=== PATIENT | male | born 1935 | race Caucasian/White ===

== ENCOUNTER 2019-07-01 11:31 | Emergency (ER) | payer OTHER ==
[2019-07-01 12:20] LABS: Protime INR 1.15
[2019-07-01 12:21] LABS: Absolute Lymphocytes (CBC) 1.9 K/uL (0.7-4.9); Basophils % 0.4 % (0-1.3); Hematocrit 36.1 % (39.6-49.0); Lymphocytes % 25.2 % (15.3-44.8); MPV 12.7 fL (7.6-11.3); RBC Red Blood Cell Count 3.68 M/uL (4.33-5.43)
--- NOTE | 2019-07-01 12:34 | RAD REPORT ---
EXAM DESCRIPTION: RAD - Chest Single View - 07/01/2019 12:15 pm CLINICAL HISTORY: Dizziness, weakness, shortness of breath COMPARISON: March 2017 TECHNIQUE: AP portable chest image was obtained 1213 hours . FINDINGS: Lung volumes are low compared to prior study. No peripheral mass consolidation. No signifi cant failure or volume overload. Heart and vasculature are normal. No measurable pleural effusion and no pneumothorax. No acute bony abnormality seen. No acute aortic findings suspected. IMPRESSION: No acute cardiopulmonary process. No suspicious change from comparison.
--- NOTE | 2019-07-01 12:35 | RAD REPORT ---
EXAM DESCRIPTION: CT - Head Brain Wo Cont - 07/01/2019 12:18 pm CLINICAL HISTORY: Weakness, dizziness, TIA symptoms COMPARISON: March 2017 TECHNIQUE: Axial 5 mm thick images of the head were obtained without IV contrast. All CT scans are performed using dose optimization technique as appropriate and may include automated exposure control or mA/KV adjustment according to patient size. FINDINGS: No intracranial hemorrhage, mass, edema or shift of mid-line structures. No acute infarcti on changes seen. No abnormal extra-axial fluid collections. Atrophy and mild chronic ischemic changes are present not substantially different from 2017. Ventricles are in proportion to the amount of vol ume loss. Arterial tree calcifications are present. Mastoid air cells and visualized portions of the paranasal sinuses are clear. No acute bony findings. IMPRESSION: No acute intracranial finding identifiable. Atrophy and chronic ischemic changes are similar to March 2017.
[2019-07-01 12:36] LABS: ALT/SGPT 15 U/L (12-78); AST/SGOT 12 U/L (15-37); Albumin 3.9 g/dL (3.4-5.0); Alkaline Phosphatase 54 U/L (45-117); BUN Blood Urea Nitrogen 16 mg/dL (7-18); Bicarbonate 25 mmol/L (21-32); Bilirubin Direct 0.2 mg/dL (0-0.2); Bilirubin Total 0.6 mg/dL (0.2-1.0); Glucose Level 247 mg/dL (74-106); Magnesium 1.5 mg/dL (1.8-2.4); NT PRO-BNP 810 pg/mL (<450); Potassium 4.3 mmol/L (3.5-5.1); Protein, Total 6.5 g/dL (6.4-8.2); Sodium Level 139 mmol/L (136-145); Troponin (Emerg Dept Use Only) < 0.02 ng/mL (0.0-0.045)
[2019-07-01 12:51] LABS: Platelet Estimate DECR; Urine White Blood Cell Casts DIFF
[2019-07-01 12:53] LABS: Blood Morphology Comment NOT SEEN (NOT SEEN)
[2019-07-01] MEDS ORDERED: NA CHLORIDE 0.9% 500 ML ONE (13:39)
[2019-07-01] MEDS ORDERED: MAGNESIUM SULFATE 1 gm IVPB 1 GM/100 ML BAG IV ONE (13:39)
[2019-07-01 15:07] LABS: Urine Bacteria NONE SEEN /HPF (NONE SEEN); Urine Culture Reflex Order NOT NEEDED; Urine RBC NONE SEEN /HPF (NONE SEEN)
[2019-07-01 15:40] LABS: Urine Blood NEGATIVE (NEG); Urine Glucose 1+ (NEG); Urine Protein NEGATIVE (NEG); Urine Specific Gravity 1.015 (1.005-1.030)
--- NOTE | 2019-07-01 15:42 | ER ---
Nurse's Notes [facility] Name: Gil Thao Age: 83 yrs Sex: Male : 1935 Arrival Date: 07/01/2019 Time: 11:34 Bed 5 Private MD: Diagnosis: Dizziness and giddiness;Weakness-general;Hyperglycemia, unspecified;Hypomagnesemia Presentation: 07/01 11:34 Presenting complaint: EMS states: Pt c/o dizziness and generalized weakness since this ph morning, BGL 186, BP 150/65, hx of HTN. Transition of care: patient was not received from another setting of care. Onset of symptoms was July 01, 2019. Risk Assessment: Do you want to hurt yourself or someone else? Patient reports no desire to harm self or others. Initial Sepsis Screen: Does the patient meet any 2 criteria? No. Patient's initial sepsis screen is negative. Does the patient have a suspected source of infection? No. Patient's initial sepsis screen is negative. Care prior to arrival: None. 11:34 Method Of Arrival: EMS: [facility] 11:34 Acuity: JONY 3 ph Historical: - Allergies: 11:37 No Known Allergies; ph - Home Meds: 11:48 amlodipine 5 mg oral tab 1 tab twice a day [Active]; levemir 50 unit daily [Active]; ph aspirin 325 mg Oral tab 1 tab once daily [Active]; loratadine 10 mg Oral TbDL 1 tab once daily [Active]; glyburide-metformin 5-500 mg oral tab 1 tab four times a day [Active]; Toprol XL 50 mg Oral Tb24 2 tabs once daily [Active]; hydroxyurea 500 mg Oral cap 1 cap Mon, Wed, Fri, Sat [Active]; - PMHx: 11:37 Diabetes - IDDM; Hypertension; Myocardial infarction; seasonal allergies; ph - PSHx: 11:37 Heart stents; Hernia repair; ph - Immunization history:: Adult Immunizations unknown. - Social history:: Smoking status: Patient/guardian denies using tobacco. - Ebola Screening: : No symptoms or risks identified at this time. Screenin:16 Abuse screen: Denies threats or abuse. Denies injuries from another. Nutritional ph screening: No deficits noted. Tuberculosis screening: No symptoms or risk factors identified. Fall Risk None identified. Assessment: 12:16 General: Appears in no apparent distress. comfortable, well groomed, Behavior is calm, ph cooperative, appropriate for age, Denies fever, feeling ill. Pain: Denies pain. Neuro: Level of Consciousness is awake, alert, obeys commands, Oriented to person, place, time, situation, Joint Cutter are equal bilaterally Moves all extremities. Full function Speech is normal, Reports dizziness, since this morning Denies blurred vision paresthesias numbness headache. Cardiovascular: Reports lightheadedness, Denies chest pain, nausea, palpitations, shortness of breath, Capillary refill < 3 seconds in bilateral fingers Patient's skin is warm and dry. Respiratory: Airway is patent Respiratory effort is even, unlabored. GI: Patient currently denies diarrhea, nausea, vomiting. Derm: Skin is intact, Skin is pink, warm \T\ dry. Musculoskeletal: Circulation, motion, and sensation intact. Range of motion: intact in all extremities. 13:30 Reassessment: Patient appears in no apparent distress at this time. Patient and/or ph family updated on plan of care and expected duration. Pain level reassessed. Patient is alert, oriented x 3, equal unlabored respirations, skin warm/dry/pink. 14:30 Reassessment: Patient appears in no apparent distress at this time. Patient and/or ph family updated on plan of care and expected duration. Pain level reassessed. Patient is alert, oriented x 3, equal unlabored respirations, skin warm/dry/pink. 15:30 Reassessment: Patient appears in no apparent distress at this time. Patient and/or ph family updated on plan of care and expected duration. Pain level reassessed. Patient is alert, oriented x 3, equal unlabored respirations, skin warm/dry/pink. Pt given sandwich and chips, tolerating well, denies dizziness or nausea at this time Patient states feeling better. Patient states symptoms have improved. 16:10 Reassessment: Patient appears in no apparent distress at this time. Patient and/or ph family updated on plan of care and expected duration. Pain level reassessed. Patient is alert, oriented x 3, equal unlabored respirations, skin warm/dry/pink. Patient states feeling better. Patient states symptoms have improved. Vital Signs: 11:37 BP 183 / 51; Pulse 54; Resp 18; Pulse Ox 100% on R/A; ph 11:38 Temp 97.3; Weight 73.48 kg; Height 5 ft. 8 in. (172.72 cm); Pain 0/10; ph 12:30 BP 157 / 60; Pulse 52; Resp 16; Pulse Ox 99% on R/A; ph 14:01 BP 146 / 62; Pulse 52; Resp 18; Pulse Ox 100% on R/A; mg2 15:00 BP 127 / 68; Pulse 56; Resp 16; Pulse Ox 97% on R/A; ph 16:13 BP 133 / 79; Pulse 54; Resp 18; Temp 97.8; Pulse Ox 99% on R/A; ph 11:38 Body Mass Index 24.63 (73.48 kg, 172.72 cm) ph ED Course: 11:34 Patient arrived in ED. ph 11:37 Triage completed. ph 11:40 Alcides Joseph PA is PHCP. cp 11:40 Alcides Mims MD is Attending Physician. cp 11:43 Lulu Collado, STEFAN is Primary Nurse. ph 11:48 Arm band placed on Patient placed in an exam room. ph 12:10 Initial lab(s) drawn, by sc, sent to lab. Inserted saline lock: 22 gauge in right ph antecubital area, using aseptic technique. Blood collected. 12:12 XRAY Chest (1 view) In Process Unspecified. EDMS 12:16 Patient has correct armband on for positive identification. Placed in gown. Bed in low ph position. Call light in reach. Side rails up X2. compliance monitor on. Pulse ox on. NIBP on. 12:17 CT completed. Patient tolerated procedure well. Patient moved back from CT. bq 12:19 CT Head Brain wo Cont In Process Unspecified. EDMS 16:09 No provider procedures requiring assistance completed. IV discontinued, intact, ph bleeding controlled, No redness/swelling at site. Pressure dressing applied. Administered Medications: 12:30 Drug: NS 0.9% 250 ml Route: IV; Rate: 250 ml/hr; Site: right antecubital; mg2 13:15 Follow up: Response: No adverse reaction; IV Status: Completed infusion ph 15:00 Follow up: Response: No adverse reaction; IV Status: Completed infusion; IV Intake: ph 250ml 13:00 Drug: Magnesium Sulfate 2 grams Route: IVPB; Infused Over: 2 hrs; Site: right mg2 antecubital; 16:12 Follow up: Response: No adverse reaction; IV Status: Completed infusion ph 13:59 Drug: NS 0.9% 250 ml Route: IV; Rate: bolus; Site: right antecubital; mg2 15:00 Follow up: Response: No adverse reaction; IV Status: Completed infusion ph Intake: 15:00 IV: 250ml; Total: 250ml. ph Outcome: 15:42 Discharge ordered by MD. cp 16:09 Discharged to home ambulatory, with family. ph 16:09 Condition: improved 16:09 Discharge instructions given to patient, family, Instructed on discharge instructions, follow up and referral plans. Demonstrated understanding of instructions, follow-up care. 16:14 Patient left the ED. ph Signatures: Dispatcher [employer] EDMS Pita Johnson Patricia, RN RN ph Alcides Joseph PA PA cp Gardose, Michele, RN RN mg2
--- NOTE | 2019-07-01 15:42 | EDPHYS ---
Physician Documentation [facility] Name: Gil Thao Age: 83 yrs Sex: Male : 1935 Arrival Date: 07/01/2019 Time: 11:34 Bed 5 Private MD: ED Physician Alcides Mims HPI: 07/01 11:55 This 83 yrs old Male presents to ER via EMS with complaints of dizziness, cp general weakness. 11:55 The patient presents with dizziness, generalized weakness, lightheadedness. cp 11:55 Onset: The symptoms/episode began/occurred this morning. cp 11:55 Context: occurred at home, occurred while the patient was getting up from bed, cp standing, walking, just prior to the episode the patient experienced no apparent symptoms. 11:55 Associated signs and symptoms: Pertinent negatives: abdominal pain, chest pain, cp confusion, focal weakness, headache, shortness of breath, syncope. Severity of symptoms: in the emergency department the symptoms have improved mildly. Patient's baseline: Neuro: alert and fully oriented, Motor: no deficits, Ambulation: walks without assistance, Speech: normal. Historical: - Allergies: 11:37 No Known Allergies; ph - Home Meds: 11:48 amlodipine 5 mg oral tab 1 tab twice a day [Active]; levemir 50 unit daily [Active]; ph aspirin 325 mg Oral tab 1 tab once daily [Active]; loratadine 10 mg Oral TbDL 1 tab once daily [Active]; glyburide-metformin 5-500 mg oral tab 1 tab four times a day [Active]; Toprol XL 50 mg Oral Tb24 2 tabs once daily [Active]; hydroxyurea 500 mg Oral cap 1 cap Mon, Wed, Fri, Sat [Active]; - PMHx: 11:37 Diabetes - IDDM; Hypertension; Myocardial infarction; seasonal allergies; ph - PSHx: 11:37 Heart stents; Hernia repair; ph - Immunization history:: Adult Immunizations unknown. - Social history:: Smoking status: Patient/guardian denies using tobacco. - Ebola Screening: : No symptoms or risks identified at this time. ROS: 12:05 Constitutional: Negative for body aches, chills, fever, poor PO intake. cp 12:05 Eyes: Negative for injury, pain, redness, and discharge. cp 12:05 Cardiovascular: Negative for chest pain, edema, palpitations. cp 12:05 ENT: Negative for drainage from ear(s), ear pain, sore throat, difficulty swallowing, cp difficulty handling secretions. 12:05 Respiratory: Negative for cough, shortness of breath, wheezing. 12:05 Abdomen/GI: Negative for abdominal pain, nausea, vomiting, and diarrhea, constipation, black/tarry stool, rectal bleeding. 12:05 : Negative for urinary symptoms. 12:05 Skin: Negative for rash. 12:05 Neuro: Positive for dizziness, weakness, Negative for altered mental status, gait disturbance, headache, syncope. 12:05 All other systems are negative. Exam: 12:10 Constitutional: The patient appears in no acute distress, alert, awake, cp non-diaphoretic, non-toxic, well developed, well nourished. 12:10 Head/Face: Normocephalic, atraumatic. cp 12:10 Eyes: Periorbital structures: appear normal, Pupils: equal, round, and reactive to light and accomodation, Extraocular movements: intact throughout, Conjunctiva: normal, no exudate, no injection, Sclera: no appreciated abnormality, Lids and lashes: appear normal, bilaterally. 12:10 ENT: External ear(s): are unremarkable, Ear canal(s): are normal, clear, TM's: are normal, no evidence of bulging, no erythema, Nose: is normal, Mouth: Lips: dry, Oral mucosa: pink and intact, moist, Posterior pharynx: is normal, airway is patent, no erythema, no exudate. 12:10 Neck: ROM/movement: is normal, is supple, without pain, no range of motions limitations, no meningismus, no nuchal rigidity. 12:10 Chest/axilla: Inspection: normal, Palpation: is normal, no crepitus, no tenderness. 12:10 Cardiovascular: Rate: bradycardic, Rhythm: regular, Edema: is not appreciated, JVD: is not appreciated. 12:10 Respiratory: the patient does not display signs of respiratory distress, Respirations: normal, no use of accessory muscles, no retractions, no splinting, no tachypnea, labored breathing, is not present, Breath sounds: are clear throughout, no decreased breath sounds, no stridor, no wheezing. 12:10 Abdomen/GI: Inspection: abdomen appears normal, Bowel sounds: active, all quadrants, Palpation: abdomen is soft and non-tender, in all quadrants, rebound tenderness, is not appreciated, involuntary guarding, is not appreciated. 12:10 Back: pain, is absent, ROM is normal. 12:10 Skin: cellulitis, is not appreciated, no rash present. 12:10 Neuro: Orientation: to person, place \T\ time. Mentation: is normal, Cerebellar function: Romberg testing is negative, normal finger to nose testing, heel to brown testing is normal, Motor: moves all fours, strength is normal, Sensation: no obvious gross deficits. Vital Signs: 11:37 BP 183 / 51; Pulse 54; Resp 18; Pulse Ox 100% on R/A; ph 11:38 Temp 97.3; Weight 73.48 kg; Height 5 ft. 8 in. (172.72 cm); Pain 0/10; ph 12:30 BP 157 / 60; Pulse 52; Resp 16; Pulse Ox 99% on R/A; ph 14:01 BP 146 / 62; Pulse 52; Resp 18; Pulse Ox 100% on R/A; mg2 15:00 BP 127 / 68; Pulse 56; Resp 16; Pulse Ox 97% on R/A; ph 16:13 BP 133 / 79; Pulse 54; Resp 18; Temp 97.8; Pulse Ox 99% on R/A; ph 11:38 Body Mass Index 24.63 (73.48 kg, 172.72 cm) ph MDM: 11:40 Patient medically screened. ofelia 12:00 Differential diagnosis: cardiac arrhythmia, generalized weakness, GI bleed, cp hypovolemia, idiopathic dizziness, sepsis, TIA, vertigo. 15:42 Data reviewed: vital signs, nurses notes, lab test result(s), EKG, radiologic studies, cp CT scan, plain films, and as a result, I will discharge patient. 15:42 Response to treatment: the patient's symptoms have markedly improved after treatment. 15:42 Counseling: I had a detailed discussion with the patient and/or guardian regarding: the cp historical points, exam findings, and any diagnostic results supporting the discharge/admit diagnosis, lab results, radiology results, to return to the emergency department if symptoms worsen or persist or if there are any questions or concerns that arise at home. 07/01 11:49 Order name: Basic Metabolic Panel; Complete Time: 12:45 cp 07/01 12:45 Interpretation: Normal except: GLUC 247; GFR 77. cp 07/01 11:49 Order name: CBC with Diff; Complete Time: 13:17 cp 07/01 13:18 Interpretation: Normal except: RBC 3.68; HGB 12.4; HCT 36.1; MCV 98.2; MCH 33.7; PLT cp 74; MPV 12.7; MN% 16.6. 07/01 11:49 Order name: LFT's; Complete Time: 12:45 cp 07/01 11:49 Order name: Magnesium; Complete Time: 12:45 cp 07/01 11:49 Order name: NT PRO-BNP; Complete Time: 12:45 cp 07/01 11:49 Order name: PT-INR; Complete Time: 12:45 cp 07/01 11:49 Order name: Troponin (emerg Dept Use Only); Complete Time: 12:45 cp 07/01 11:49 Order name: XRAY Chest (1 view); Complete Time: 12:45 cp 07/01 11:49 Order name: CT Head Brain wo Cont; Complete Time: 12:45 cp 07/01 11:49 Order name: Urine Microscopic Only; Complete Time: 15:26 cp 07/01 12:28 Order name: CBC Smear Scan EDDE 07/01 12:53 Order name: Manual Differential; Complete Time: 13:17 EDDE 07/01 13:18 Interpretation: Normal except: BANDS [F] 5; MONO 14. cp 07/01 15:33 Order name: Urine Dipstick--Ancillary (enter results); Complete Time: 15:42 eb 07/01 11:49 Order name: EKG; Complete Time: 11:50 cp 07/01 11:49 Order name: Cardiac monitoring; Complete Time: 12:12 cp 07/01 11:49 Order name: EKG - Nurse/Tech; Complete Time: 12:13 cp 07/01 11:49 Order name: IV Saline Lock; Complete Time: 12:12 cp 07/01 11:49 Order name: Labs collected and sent; Complete Time: 12:12 cp 07/01 11:49 Order name: O2 Per Protocol; Complete Time: 12:12 cp 07/01 11:49 Order name: O2 Sat Monitoring; Complete Time: 12:12 cp Administered Medications: 12:30 Drug: NS 0.9% 250 ml Route: IV; Rate: 250 ml/hr; Site: right antecubital; mg2 13:15 Follow up: Response: No adverse reaction; IV Status: Completed infusion ph 15:00 Follow up: Response: No adverse reaction; IV Status: Completed infusion; IV Intake: ph 250ml 13:00 Drug: Magnesium Sulfate 2 grams Route: IVPB; Infused Over: 2 hrs; Site: right mg2 antecubital; 16:12 Follow up: Response: No adverse reaction; IV Status: Completed infusion ph 13:59 Drug: NS 0.9% 250 ml Route: IV; Rate: bolus; Site: right antecubital; mg2 15:00 Follow up: Response: No adverse reaction; IV Status: Completed infusion ph Disposition: 07/02 09:15 Co-signature as Attending Physician, Alcides Mims MD I agree with the assessment and ofelia plan of care. Disposition: 07/01/19 15:42 Discharged to Home. Impression: Dizziness and giddiness, Weakness - general, Hyperglycemia, unspecified, Hypomagnesemia. - Condition is Stable. - Discharge Instructions: Dizziness, Hyperglycemia, Hypomagnesemia, Weakness, Blood Glucose Monitoring, Adult. - Medication Reconciliation Form, Thank You Letter, Antibiotic Education, Prescription Opioid Use form. - Follow up: Private Physician; When: 2 - 3 days; Reason: Recheck today's complaints. - Problem is new. - Symptoms have improved. Signatures: Dispatcher [employer] Alcides Teague MD MD cha Hall, Patricia RN RN ph Alcides Joseph PA PA cp Gardose, Michele RN RN mg2 Corrections: (The following items were deleted from the chart) 07/01 13:20 11:25 This 83 yrs old Male presents to ER via EMS with complaints of cp dizziness, general weakness. cp 15:42 15:42 07/01/2019 15:42 Discharged to Home. Impression: Dizziness and giddiness; cp Weakness - general. Condition is Stable. Forms are Medication Reconciliation Form, Thank You Letter, Antibiotic Education, Prescription Opioid Use. Follow up: Private Physician; When: 2 - 3 days; Reason: Recheck today's complaints. Problem is new. Symptoms have improved. cp 16:14 15:42 07/01/2019 15:42 Discharged to Home. Impression: Dizziness and giddiness; ph Weakness - general; Hyperglycemia, unspecified; Hypomagnesemia. Condition is Stable. Forms are Medication Reconciliation Form, Thank You Letter, Antibiotic Education, Prescription Opioid Use. Follow up: Private Physician; When: 2 - 3 days; Reason: Recheck today's complaints. Problem is new. Symptoms have improved. cp
[2019-07-01 16:27] VITALS: BP 133/79; TEMP 97.8; O2SAT 99
--- NOTE | 2019-07-02 06:14 | EKG ---
Test Date: 2019-07-01 Test Time: 11:54:03 [employer] Director: MEASUREMENT RESULTS: Intervals: Rate: 52 KS: 156 QRSD: 104 QT: 460 QTc: 427 [place]: P: 65 KS: 156 QRS: 69 T: 32 INTERPRETIVE STATEMENTS: Sinus bradycardia Cannot rule out Inferior infarct, age undetermined Abnormal ECG Compared to ECG 03/29/2017 07:26:21 Sinus rhythm no longer present Myocardial infarct finding still present Electronically Signed On 07-02-19 06:13:31 CDT by Poli Cruz
== END 2019-07-01 16:14 | disposition home or self-care (01) ==
LOC: ER 11:31
DX: E11.65 Type 2 diabetes mellitus with hyperglycemia (principal); E83.42 Hypomagnesemia; R53.1 Weakness; I10 Essential (primary) hypertension; I25.2 Old myocardial infarction; Z79.4 Long term (current) use of insulin; Z79.82 Long term (current) use of aspirin
CPT/HCPCS: 96365; 93005; 85025; 80048; 36415; 83735; 85610; 80076; 84484; 83880; 70450; 71045; 99285; 96366; J3475; 81003; 81015

== ENCOUNTER 2019-11-11 09:52 | Observation (INO) | payer OTHER ==
[2019-11-11] MEDS ORDERED: NA CHLORIDE 0.9% 500 ML ONE (10:21)
--- NOTE | 2019-11-11 10:36 | RAD REPORT ---
EXAM DESCRIPTION: CT - Ct Stroke Brain Wo Cont - 11/11/2019 10:23 am CLINICAL HISTORY: DIZZINESS Headache, drowsiness, CVA symptomology COMPARISON: Head Brain Wo Cont dated 07/01/2019; Head Brain Wo Cont dated 03/29/2017 TECHNIQUE: All CT scans are performed using dose optimization technique as appropriate and may inclu de automated exposure control or mA/KV adjustment according to patient size. FINDINGS: No intracranial hemorrhage, hydrocephalus or extra-axial fluid collection.Mild generalized brain atrophy.No areas of brain edema or evidence of midline shift. The paranasal sinuses and mastoids are clear. The calvarium is intact. IMPRESSION: No acute intracranial abnormality. The findings were discussed with Melinda in the ER on 11/11/2019 at 10:30 a.m. by telephone.
[2019-11-11 11:00] LABS: Absolute Lymphocytes (CBC) 2.2 K/uL (0.7-4.9); Basophils % 0.6 % (0-1.3); Hematocrit 39.3 % (39.6-49.0); Lymphocytes % 25.3 % (15.3-44.8); MPV 12.8 fL (7.6-11.3); RBC Red Blood Cell Count 3.99 M/uL (4.33-5.43)
[2019-11-11 11:02] LABS: Protime INR 1.09
[2019-11-11 11:13] LABS: BUN Blood Urea Nitrogen 17 mg/dL (7-18); Bicarbonate 27 mmol/L (21-32); Glucose Level 245 mg/dL (74-106); Potassium 4.6 mmol/L (3.5-5.1); Sodium Level 140 mmol/L (136-145); Troponin (Emerg Dept Use Only) < 0.02 ng/mL (0.0-0.045)
--- NOTE | 2019-11-11 11:13 | RAD REPORT ---
EXAM DESCRIPTION: RAD - Chest Single View - 11/11/2019 10:24 am CLINICAL HISTORY: dizziness Chest pain. COMPARISON: Chest Single View dated 07/01/2019; Chest Single View dated 03/29/2017; CHEST SINGLE VIEW dated 09/18/2008; CHEST PA AND LAT 2 VIEW dated 08/31/2006 FINDINGS: Portable technique limits examination quality. The lungs are grossly clear. The heart is normal in size. No displaced fractures. IMPRESSION: No acute intrathoracic process suspected.
[2019-11-11] MEDS ORDERED: MECLIZINE HCL 12.5 MG TAB ONE (11:43)
[2019-11-11 12:03] LABS: Blood Morphology Comment NOT SEEN (NOT SEEN); Platelet Estimate DECR; Urine White Blood Cell Casts OK
--- NOTE | 2019-11-11 12:11 | RAD REPORT ---
EXAM DESCRIPTION: CT - Head angio - 11/11/2019 12:04 pm CLINICAL HISTORY: DIZZINESS Headache, drowsiness, CVA symptomology COMPARISON: Ct Stroke Brain Wo Cont dated 11/11/2019; Head Brain Wo Cont dated 07/01/2019 TECHNIQUE: CT angiography of the head was performed with MIPs. All CT scans are performed using dose optimization technique as appropriate and may include automated exposure control or mA/KV adjustment according to patient size. FINDINGS: No evidence of aneurysm is detected. No flow-limiting stenosis or vascular malformation id entified. Antegrade flow is seen in the vertebral arteries. The left vertebral artery is dominant. The visualized dural venous sinuses are patent. IMPRESSION: No significant flow abnormality is detected.
--- NOTE | 2019-11-11 12:13 | RAD REPORT ---
EXAM DESCRIPTION: CT - Neck Angio - 11/11/2019 12:05 pm CLINICAL HISTORY: dizziness Headache, drowsiness, CVA symptomology COMPARISON: No comparisons TECHNIQUE: CT angiography of the neck vessels was performed with MIPs. All CT scans are performed using dose optimization technique as appropriate and may include automated exposure control or mA/KV adjustment according to patient size. FINDINGS: A left aortic arch is identified with normal configuration of the great vessels. Moderate atheromatous plaque is seen at the origin left subclavian artery with mild luminal narrowing. No significant flow abnormality is seen of the common carotid bilaterally. Mild atherosclerotic plaque is seen in both carotid bulbs without significant carotid stenosis presen t. Normal flow is seen within both vertebral arteries. The left vertebral artery is mildly dominant. Upper lung amezcua are emphysematous. IMPRESSION: No significant flow abnormality of the neck vessels is identified.
--- NOTE | 2019-11-11 12:49 | ER ---
Nurse's Notes [facility] Name: Gil Thao Age: 83 yrs Sex: Male : 1935 Arrival Date: 11/11/2019 Time: 10:00 Bed 7 Private MD: Diagnosis: Dizziness and giddiness;Ataxia, unspecified;Weakness Presentation: 11/11 10:02 Presenting complaint: EMS states: Pt reports dizziness, L sided weakness, and trouble ph ambulating that began last night before 9 pm, also reports "pressure" in L side of head behind eye, denies visual disturbance or recent illness. Transition of care: patient was not received from another setting of care. Onset of symptoms was November 11, 2019. Risk Assessment: Do you want to hurt yourself or someone else? Patient reports no desire to harm self or others. Initial Sepsis Screen: Does the patient meet any 2 criteria? No. Patient's initial sepsis screen is negative. Does the patient have a suspected source of infection? No. Patient's initial sepsis screen is negative. Care prior to arrival: None. 10:02 Method Of Arrival: EMS: [facility] 10:02 Acuity: JONY 3 ph Historical: - Allergies: 10:06 No Known Allergies; ph - Home Meds: 10:06 amlodipine 5 mg tab 1 tab twice a day [Active]; aspirin 325 mg Oral tab 1 tab once ph daily [Active]; glyburide-metformin 5-500 mg Oral tab 1 tab four times a day [Active]; hydroxyurea 500 mg Oral cap 1 cap Mon, Wed, Fri, Sat [Active]; levemir 50 unit daily [Active]; loratadine 10 mg Oral TbDL 1 tab once daily [Active]; Toprol XL 50 mg Oral Tb24 2 tabs once daily [Active]; - PMHx: 10:06 Diabetes - IDDM; Hypertension; Myocardial infarction; seasonal allergies; ph - PSHx: 10:06 Heart stents; Hernia repair; ph - Immunization history:: Adult Immunizations unknown. - Coronavirus screen:: The patient has NOT traveled to [place], [place], or [place] in the past 14 days. The patient has NOT had contact with known/suspected case of Coronavirus?. - Social history:: Smoking status: Patient denies any tobacco usage or history of. - Family history:: not pertinent. - Ebola Screening: : No symptoms or risks identified at this time. - Hospitalizations: : No recent hospitalization is reported. Screenin:07 Abuse screen: Denies threats or abuse. Denies injuries from another. Nutritional ph screening: No deficits noted. Tuberculosis screening: No symptoms or risk factors identified. Fall Risk None identified. 11:45 Patient has been NPO before screening. The patient is alert, able to follow commands. ph The patient does not exhibit slurred or garbled speech The patient is not exhibiting difficulty speaking. The patient does not exhibit difficulty understanding words. The patient is able to swallow own secretions with no drooling or need for suction. Patient tolerated one teaspoon of water. No drooling, immediate coughing, gurgling, or clearing of the throat was noted. The patient tolerated 90mL of water. No drooling, immediate coughing, gurgling, or clearing of the throat was noted. The patient passed the bedside swallow screening. Oral medications may be given as ordered. Contact Physician for further diet orders. Provider notified of bedside swallow screening results: Leno Pace MD. Assessment: 10:19 General: Appears in no apparent distress. comfortable, well groomed, Behavior is calm, ph cooperative, appropriate for age, Denies fever, feeling ill. Pain: Complains of pain in left side of forehead, left temporal area, left eye and left latter-day Quality of pain is described as pressure. Neuro: Level of Consciousness is awake, alert, obeys commands, Oriented to person, place, time, situation, Director Database are equal bilaterally Moves all extremities. Gait is unsteady, Speech is normal, Facial symmetry appears normal, Facial symmetry: tongue is midline, Intact Reports dizziness, headache in left frontal area, weakness in left leg Denies blurred vision difficulty swallowing, numbness diplopia. Cardiovascular: Reports lightheadedness, Denies chest pain, nausea, palpitations, shortness of breath. Respiratory: Airway is patent Respiratory effort is even, unlabored. GI: No signs and/or symptoms were reported involving the gastrointestinal system. Patient currently denies abdominal pain, diarrhea, nausea, vomiting. : Denies burning with urination, urinary frequency. EENT:. Derm: Skin is fragile, is thin, Skin is pink, warm \\T\\ dry. Bruising that is multiple bruises noted to bilateral arms, pt denies falling, states, " I bruise easily". Musculoskeletal: Circulation, motion, and sensation intact. Range of motion: intact in all extremities. 10:22 Reassessment: Pt taken to CT via stretcher. ph 11:07 Reassessment: Patient appears in no apparent distress at this time. Patient and/or ph family updated on plan of care and expected duration. Pain level reassessed. Patient is alert, oriented x 3, equal unlabored respirations, skin warm/dry/pink. 11:51 Reassessment: Patient appears in no apparent distress at this time. Patient and/or ph family updated on plan of care and expected duration. Pain level reassessed. Patient is alert, oriented x 3, equal unlabored respirations, skin warm/dry/pink. Pt taken to CT via stretcher for head and neck angio, family remains at bedside. 13:37 Reassessment: Patient appears in no apparent distress at this time. Patient and/or ph family updated on plan of care and expected duration. Pain level reassessed. Patient is alert, oriented x 3, equal unlabored respirations, skin warm/dry/pink. Report called to second floor. Vital Signs: 10:04 BP 171 / 59; Pulse 54; Resp 18; Temp 97.4; Pulse Ox 100% on R/A; Weight 73.48 kg; ph Height 5 ft. 8 in. (172.72 cm); 11:08 BP 147 / 56; Pulse 63; Resp 18; Pulse Ox 100% on R/A; ph 11:53 BP 145 / 60; Pulse 56; Resp 18; Pulse Ox 99% on R/A; ph 13:15 BP 162 / 56; Pulse 55; Resp 18; Temp 97.5; Pulse Ox 99% on R/A; ph 10:04 Body Mass Index 24.63 (73.48 kg, 172.72 cm) ph ED Course: 10:00 Patient arrived in ED. rn 10:00 Leno Pace MD is Attending Physician. rn 10:02 Lulu Collado, STEFAN is Primary Nurse. ph 10:04 Triage completed. ph 10:07 Patient has correct armband on for positive identification. Placed in gown. Bed in low ph position. Call light in reach. Side rails up X2. ekg monitor tech on. Pulse ox on. NIBP on. Door closed. Warm blanket given. Pillow given. 10:09 Arm band placed on Patient placed in an exam room, on a stretcher, on ekg monitor tech, ph on pulse oximetry. 10:23 CT completed. Patient tolerated procedure well. Patient moved back from CT. mw3 10:24 CT Stroke Brain w/o Contrast In Process Unspecified. EDMS 10:25 Stroke CXR 1 View In Process Unspecified. EDMS 10:40 Initial lab(s) drawn, by me, sent to lab. Inserted saline lock: 22 gauge in right ph antecubital area, using aseptic technique. Blood collected. 12:04 CT Head Angio In Process Unspecified. EDMS 12:04 CT Neck Angio In Process Unspecified. EDMS 12:48 Cecilio Langston MD is Hospitalizing Provider. rn 13:39 No provider procedures requiring assistance completed. Patient admitted, IV remains in ph place. Administered Medications: 10:45 Drug: NS 0.9% 500 ml Route: IV; Rate: bolus; Site: right antecubital; ph 11:51 Follow up: Response: No adverse reaction; IV Status: Completed infusion; IV Intake: ph 500ml 11:51 Drug: Meclizine 50 mg Route: PO; ph 13:39 Follow up: Response: No adverse reaction ph 13:06 Drug: Aspirin Chewable Tablet 324 mg Route: PO; hb 13:40 Follow up: Response: No adverse reaction ph Intake: 11:51 IV: 500ml; Total: 500ml. ph Outcome: 12:48 Decision to Hospitalize by Provider. rn 13:39 Admitted to Tele accompanied by tech, family with patient, via wheelchair, room 232. ph 13:39 Condition: stable 13:39 Instructed on the need for admit. 14:14 Patient left the ED. ph Signatures: Dispatcher [employer] EDLeno Garber MD MD rn Hall, Patricia, RN RN ph Baxter, Heather, RN RN hb Willis, Michelle mw3
--- NOTE | 2019-11-11 12:50 | EDPHYS ---
Physician Documentation [facility] Name: Gil Thao Age: 83 yrs Sex: Male : 1935 Arrival Date: 11/11/2019 Time: 10:00 Bed 7 Private MD: ED Physician Leno Pace HPI: 11/11 10:23 This 83 yrs old Male presents to ER via EMS with complaints of dizziness. rn 10:23 The patient presents with feeling off balance. Onset: The symptoms/episode rn began/occurred yesterday. Context: occurred at home, occurred while the patient was. Modifying factors: The symptoms are alleviated by lying down, the symptoms are aggravated by movement of head, standing up, changing position. Severity of symptoms: At their worst the symptoms were moderate in the emergency department the symptoms are unchanged. The patient has not experienced similar symptoms in the past. Reports dizziness, began yesterday, constant, feels like falling to left side when walking, assoc with left sided head pain that is minor, no recent trauma, no hx of cva. Not better today and felt like was going to pass out so called 911. No fever/vomiting/diarrhea/chest pain/sob. . Historical: - Allergies: 10:06 No Known Allergies; ph - Home Meds: 10:06 amlodipine 5 mg tab 1 tab twice a day [Active]; aspirin 325 mg Oral tab 1 tab once ph daily [Active]; glyburide-metformin 5-500 mg Oral tab 1 tab four times a day [Active]; hydroxyurea 500 mg Oral cap 1 cap Mon, Wed, Fri, Sat [Active]; levemir 50 unit daily [Active]; loratadine 10 mg Oral TbDL 1 tab once daily [Active]; Toprol XL 50 mg Oral Tb24 2 tabs once daily [Active]; - PMHx: 10:06 Diabetes - IDDM; Hypertension; Myocardial infarction; seasonal allergies; ph - PSHx: 10:06 Heart stents; Hernia repair; ph - Immunization history:: Adult Immunizations unknown. - Coronavirus screen:: The patient has NOT traveled to [place], [place], or [place] in the past 14 days. The patient has NOT had contact with known/suspected case of Coronavirus?. - Social history:: Smoking status: Patient denies any tobacco usage or history of. - Family history:: not pertinent. - Ebola Screening: : No symptoms or risks identified at this time. - Hospitalizations: : No recent hospitalization is reported. ROS: 10:23 Constitutional: Negative for fever, chills, and weight loss, Eyes: Negative for injury, rn pain, redness, and discharge, Neck: Negative for injury, pain, and swelling, Cardiovascular: Negative for chest pain, palpitations, and edema, Respiratory: Negative for shortness of breath, cough, wheezing, and pleuritic chest pain, Abdomen/GI: Negative for abdominal pain, nausea, vomiting, diarrhea, and constipation, Back: Negative for injury and pain, MS/Extremity: Negative for injury and deformity, Skin: Negative for injury, rash, and discoloration, Neuro: Negative for numbness, tingling, and seizure, + subjective left arm and leg weakness. Exam: 10:23 Constitutional: This is a well developed, well nourished patient who is awake, alert, rn and in no acute distress. Head/Face: Normocephalic, atraumatic. Eyes: Pupils equal round and reactive to light, extra-ocular motions intact. Lids and lashes normal. Conjunctiva and sclera are non-icteric and not injected. Cornea within normal limits. Periorbital areas with no swelling, redness, or edema. ENT: dry MM Cardiovascular: Bradycardic, regular Respiratory: No increased work of breathing, no retractions or nasal flaring. Abdomen/GI: soft, non-tender MS/ Extremity: Pulses equal, no cyanosis. Neurovascular intact. Full, normal range of motion. Equal circumference. Neuro: Awake and alert, GCS 15, oriented to person, place, time, and situation. Cranial nerves II-XII grossly intact. Motor strength 4/5 in all extremities. Sensory grossly intact. Vital Signs: 10:04 BP 171 / 59; Pulse 54; Resp 18; Temp 97.4; Pulse Ox 100% on R/A; Weight 73.48 kg; ph Height 5 ft. 8 in. (172.72 cm); 11:08 BP 147 / 56; Pulse 63; Resp 18; Pulse Ox 100% on R/A; ph 11:53 BP 145 / 60; Pulse 56; Resp 18; Pulse Ox 99% on R/A; ph 13:15 BP 162 / 56; Pulse 55; Resp 18; Temp 97.5; Pulse Ox 99% on R/A; ph 10:04 Body Mass Index 24.63 (73.48 kg, 172.72 cm) ph MDM: 10:00 Patient medically screened. rn 12:40 Differential diagnosis: cardiac arrhythmia, CVA, generalized weakness, hypovolemia, rn idiopathic dizziness, near-syncope, TIA, vertigo. Data reviewed: vital signs, nurses notes, lab test result(s), EKG, radiologic studies, CT scan, and as a result, I will admit patient. Counseling: I had a detailed discussion with the patient and/or guardian regarding: the historical points, exam findings, and any diagnostic results supporting the discharge/admit diagnosis, lab results, radiology results, the need for further work-up and treatment in the hospital. Response to treatment: There is no appreciated change of the patient's symptoms at this time. Admission orders: after a detailed discussion of the patient's condition and case, the admit orders are written by me. ED course: Neg CT head/angio/neck angio. Pt still complains of left sided subjective weakness, and trouble balancing. Admitted to Dr. Langston for further w/u. . 11/11 10:02 Order name: Troponin (emerg Dept Use Only); Complete Time: 11:30 rn 11/11 10:02 Order name: Basic Metabolic Panel; Complete Time: : rn 11/11 10:02 Order name: CBC with Diff; Complete Time: 12: rn 11/11 10:02 Order name: Protime (+inr); Complete Time: 11:30 rn 11/11 10:02 Order name: Ptt, Activated; Complete Time: 11: rn 11/11 10:02 Order name: Urine Microscopic Only rn 11/11 10:02 Order name: CT Stroke Brain w/o Contrast; Complete Time: 11: rn 11/11 10:02 Order name: Stroke CXR 1 View; Complete Time: 11: rn 11/11 10:59 Order name: Glucose, Ancillary Testing; Complete Time: 11:05 EDMS 11/11 11:31 Order name: CT Head Angio; Complete Time: 12:21 rn 11/11 11:31 Order name: CT Neck Angio; Complete Time: 12: rn 11/11 12:03 Order name: CBC Smear Scan; Complete Time: 12: EDMS 11/11 10:02 Order name: EKG; Complete Time: 10: rn 11/11 10:02 Order name: Accucheck; Complete Time: 11: rn 11/11 10:02 Order name: Cardiac monitoring; Complete Time: 10: rn 11/11 10:02 Order name: EKG - Nurse/Tech; Complete Time: 10: rn 11/11 10:02 Order name: IV Saline Lock; Complete Time: 11: rn 11/11 10:02 Order name: Labs collected and sent; Complete Time: 11: rn 11/11 10:02 Order name: NPO; Complete Time: : rn 11/11 10:02 Order name: O2 Per Protocol; Complete Time: : rn 11/11 10:02 Order name: O2 Sat Monitoring; Complete Time: 10:15 rn Administered Medications: 10:45 Drug: NS 0.9% 500 ml Route: IV; Rate: bolus; Site: right antecubital; ph 11:51 Follow up: Response: No adverse reaction; IV Status: Completed infusion; IV Intake: ph 500ml 11:51 Drug: Meclizine 50 mg Route: PO; ph 13:39 Follow up: Response: No adverse reaction ph 13:06 Drug: Aspirin Chewable Tablet 324 mg Route: PO; hb 13:40 Follow up: Response: No adverse reaction ph Disposition: 11/11/19 12:48 Hospitalization ordered by Cecilio Langston for Inpatient Admission. Preliminary diagnosis are Dizziness and giddiness, Ataxia, unspecified, Weakness. - Bed requested for Telemetry/MedSurg (Inpatient). - Status is Inpatient Admission. ph - Condition is Stable. - Problem is new. - Symptoms are unchanged. Signatures: Dispatcher [employer] EDMS Leno Pace MD MD rn Hall, Patricia, RN RN ph Evon Molina RN RN Steven Aceves RN RN ja1 Corrections: (The following items were deleted from the chart) 10:26 10:23 Constitutional: Negative for fever, chills, and weight loss, Eyes: Negative for rn injury, pain, redness, and discharge, Neck: Negative for injury, pain, and swelling, Cardiovascular: Negative for chest pain, palpitations, and edema, Respiratory: Negative for shortness of breath, cough, wheezing, and pleuritic chest pain, Abdomen/GI: Negative for abdominal pain, nausea, vomiting, diarrhea, and constipation, MS/Extremity: Negative for injury and deformity, Skin: Negative for injury, rash, and discoloration, Neuro: Negative for numbness, tingling, and seizure, rn 13:17 12:48 Hospitalization Ordered by Cecilio Langston MD for Inpatient Admission. Preliminary ja1 diagnosis is Dizziness and giddiness; Ataxia, unspecified; Weakness. Bed requested for Telemetry/MedSurg (Inpatient). Status is Inpatient Admission. Condition is Stable. Problem is new. Symptoms are unchanged. rn 14:14 13:17 11/11/2019 12:48 Hospitalization Ordered by Cecilio Langston MD for Inpatient ph Admission. Preliminary diagnosis is Dizziness and giddiness; Ataxia, unspecified; Weakness. Bed requested for Telemetry/MedSurg (Inpatient). Status is Inpatient Admission. Condition is Stable. Problem is new. Symptoms are unchanged. ja1
[2019-11-11] MEDS ORDERED: ASPIRIN 81 MG CHEWABLE TABLET ONE (13:03)
[2019-11-11] MEDS ORDERED: MECLIZINE HCL 12.5 MG TAB PO PRN (14:23)
[2019-11-11] MEDS ORDERED: ONDANSETRON 4 MG/2 ML VIAL IV PRN (14:23)
[2019-11-11] MEDS ORDERED: GLUCAGON 1 MG/VIAL IM PRN (14:23)
[2019-11-11] MEDS ORDERED: ACETAMINOPHEN 500 MG TAB PO PRN (14:23)
[2019-11-11] MEDS ORDERED: D50W 25 GM/50 ML SYRINGE/VIAL IV PRN (14:23)
[2019-11-11 14:25] LABS: Urine Bacteria <20 /HPF (NONE SEEN); Urine Culture Reflex Order NOT NEEDED; Urine RBC NONE SEEN /HPF (NONE SEEN)
[2019-11-11 15:00] VITALS: BMI 24.6
[2019-11-11] MEDS: NA CHLORIDE 0.9% 1,000 ML IV SCH (16:27)
[2019-11-11] MEDS: INSULIN -REGULAR HUMAN 50 UNIT/0.5 ML ML SQ SCH ×2 (16:30→20:54)
[2019-11-11] MEDS ORDERED: ATORVASTATIN 20 MG TAB PO SCH (21:00)
--- NOTE | 2019-11-11 23:56 | HP ---
Date of Admission: 11/11/2019 Primary Care Physician: Dr. Byrne. Hospitalist service covering for Dr. Byrne. Chief Complaint: Weakness, ataxia. Code Status: Full. History Of Present Illness: The patient is an 83-year-old male with past medical history of diabetes insulin-requiring, hypertension, history of WA, status post stent, on aspirin, comes in with sudden onset of dizziness yesterday afternoon. The day prior to admission, patient also reported he had omar e ataxia, was veering off to the left, and had difficulty ambulating. Patient's symptoms are constan t, moderate, progressively worsening. Denies any trauma. No falls. He said he checked his blood castillo gar which was in the 200s. Otherwise, no nausea, vomiting, fever, chills. Patient came into the ER for further evaluation. Upon arrival, his blood pressure was elevated to 180s systolic, heart rate w as in the 50s. Blood sugar level was 245. CT scan of the brain was negative for any acute change. He is then referred for admission. When seen in the ER, he was awake, alert, oriented x3, in some mi ld distress. He was given meclizine and 0.5 L normal saline bolus. Past Medical History: Diabetes mellitus type 2, insulin requiring; hypertension; history of WA, stat us post stent. He also has history of skin cancer. Past Surgical History: Hernia repair and cardiac stents. Allergies: NO KNOWN DRUG ALLERGIES. Medications: List reviewed. Social History: Patient was a long-term smoker for at least 40 years, quit in the early . No a lcohol use. No illicit drug use patient is , independent in his activities of daily living, h as a son. Good social support. Family History: Both of his brothers have diabetes and one of his brothers had bypass surgery. Review of Systems: Ten-point system reviewed, negative except as per HPI. Physical Examination: Vital Signs: Blood pressure 183/51, pulse 54 respirations 18, O2 100% on room air, temperature 97.3. General: Awake, alert, oriented x3. Elderly male, ill appearing, in some mild distress. HEENT: Normocephalic, atraumatic. PERRLA. EOMI. Dry mucous membranes. Oropharynx is clear. Poor dentition. Conjunctivae are anicteric. Patient does have some nystagmus. Neck: Supple. No JVD. Trachea midline. CV: S1, S2. Sinus bradycardia. Peripheral pulses present. Respiratory: Moving air well bilaterally. No wheezing or stridor. No use of accessory muscles. Gastrointestinal: Abdomen is soft, nontender, nondistended. Positive bowel sounds. No guarding or rigidity. Extremities: No clubbing, cyanosis, or edema. No calf tenderness. Neuro: Cranial nerves 2 through 12 intact grossly. No focal neurological deficits. Speech is annette l and does have somewhat word-finding difficulty. No facial droop. Skin: No rashes. Normal skin turgor. Patient does have multiple ecchymoses on his upper extremitie s. Psychiatric: Mood is okay. Affect is full. Insight and judgment are good. Laboratory Data: INR 1.09. Sodium 140, potassium 4.6, chloride 107, CO2 of 27, BUN 17, creatinine 0 .96, glucose 245, calcium 9. Troponin less than 0.02. UA is pending. WBC 8.8, H and H 13.1 and 39. 3, platelets 267, neutrophils 59%. Imaging Studies: CT scan of the brain shows no acute intracranial abnormality. Chest x-ray personal ly reviewed shows no acute intrathoracic process. Head CTA shows no significant flow abnormality. N juanis CTA shows no significant flow abnormality of the neck vessels. Assessment And Plan: An 83-year-old male with: 1.Dizziness, ataxia, possibly cerebrovascular accident versus transient ischemic attack symptoms. S ymptoms started yesterday. Not a candidate for tPA. May also be related to benign positional vertig o. Patient received meclizine. We will continue p.r.n. Consult Neuro in a.m. No Neuro available a t this time. Patient's head CT and neck and head CT angiograms are negative. Obtain MRI of the brai n in a.m. and echocardiogram. Fall precautions. 2.Diabetes mellitus type 2 insulin requiring with hyperglycemia. We will start on sliding scale ins ulin and resume home dose of Lantus, which is 50 units. 3.Essential hypertension. We will allow permissive hypertension due to possible cerebrovascular acc ident. 4.History of myocardial infarction, status post stent. We will continue on aspirin. 5.Generalized weakness. 6.Thrombocytopenia. Plan: Admit patient to Med-Surg, place as observation, rule out cerebrovascular accident. Neuro sarika luation in a.m. DVT prophylaxis. No chemical anticoagulation due to thrombocytopenia. Dr. Byrne to resume service of patient in a.m. /BOONE Voice ID: [id number]
[2019-11-12] MEDS: NA CHLORIDE 0.9% 1,000 ML IV SCH ×2 (03:43→12:24)
[2019-11-12 06:11] LABS: Absolute Lymphocytes (CBC) 2.7 K/uL (0.7-4.9); Basophils % 0.4 % (0-1.3); Hematocrit 36.8 % (39.6-49.0); Lymphocytes % 27.2 % (15.3-44.8); MPV 12.8 fL (7.6-11.3); RBC Red Blood Cell Count 3.79 M/uL (4.33-5.43)
--- NOTE | 2019-11-12 06:16 | EKG ---
Test Date: 2019-11-11 Test Time: 10:15:17 Galvanizer: JAYE MEASUREMENT RESULTS: Intervals: Rate: 56 NM: 156 QRSD: 110 QT: 456 QTc: 440 [place]: P: 59 NM: 156 QRS: 54 T: 12 INTERPRETIVE STATEMENTS: Sinus bradycardia sinus arrhythmia Possible Inferior infarct, age undetermined Abnormal ECG Compared to ECG 07/01/2019 11:54:03 Myocardial infarct finding still present Electronically Signed On 11-12-19 06:15:23 DIE REPAIRER FORGING by Poli Cruz
[2019-11-12 06:33] LABS: ALT/SGPT 16 U/L (12-78); AST/SGOT 10 U/L (15-37); Albumin 3.5 g/dL (3.4-5.0); Alkaline Phosphatase 57 U/L (45-117); BUN Blood Urea Nitrogen 12 mg/dL (7-18); Bicarbonate 24 mmol/L (21-32); Bilirubin Total 0.4 mg/dL (0.2-1.0); Glucose Level 197 mg/dL (74-106); HDL Cholesterol 24 mg/dL (40-60); LDL Cholesterol, Calculated 36 (<130); Potassium 3.8 mmol/L (3.5-5.1); Sodium Level 139 mmol/L (136-145)
[2019-11-12] MEDS: INSULIN -REGULAR HUMAN 50 UNIT/0.5 ML ML SQ SCH ×4 (07:30→22:37)
--- NOTE | 2019-11-12 07:41 | RAD REPORT ---
EXAM DESCRIPTION: USCarotid Artery Bilateral11/11/2019 9:51 pm CLINICAL HISTORY: Syncope COMPARISON: November 11, 2019 CTA neck FINDINGS: The velocity of the right internal carotid artery equals 74 cm/sec. The right ICA/CCA rati o 1.1 The velocity of the left internal carotid artery equals 89 cm/sec. The left ICA/CCA ratio 1 Mild plaque is present within the carotid arteries. The vertebral arteries demonstrate antegrade flow IMPRESSION: Mild plaque within the carotid arteries without evidence of a hemodynamically significan t stenosis NASCET criteria used. Mild 0-49% stenosis Moderate 50-69% stenosis Severe 70-99% stenosis
[2019-11-12 08:16] LABS: Anisocytosis 1+; Blood Morphology Comment NOTED (NOT SEEN); Platelet Estimate DECR; Platelets, Giant FEW PRESENT
[2019-11-12] MEDS ORDERED: POTASSIUM 25 MEQ EFFERV TAB PO ONE (09:00)
[2019-11-12] MEDS: INSULIN GLARGINE 100 UNITS/ML SQ SCH (09:00)
[2019-11-12] MEDS: ASPIRIN EC 81 MG TAB PO SCH (09:01)
[2019-11-12] MEDS: LORATADINE 10 MG TAB PO SCH (09:01)
[2019-11-12] MEDS: CLOPIDOGREL 75 MG TABLET PO SCH (09:01)
--- NOTE | 2019-11-12 10:22 | RAD REPORT ---
EXAM DESCRIPTION: MRI - Brain W/Wo Cont - 11/12/2019 10:12 am CLINICAL HISTORY: Left leg weakness, ataxia, stroke-like symptoms COMPARISON: CT head November 11 TECHNIQUE: Sagittal and axial T1-weighted images were obtained. Axial PD/heavily T2-weighted and T2- FLAIR images were obtained along with axial DWI/ADC mapping sequences. Coronal heavily T2 weighted s equence obtained. Axial and coronal post-contrast T1-weighted images were also obtained. A 16 ml Mul tihance contrast following utilized. FINDINGS: No intracranial hemorrhage, mass or acute infarction. There is no edema or shift of midli ne structures. No extra-axial fluid collections. Paz-matter/white matter junction is preserved. Sig nal voids are seen as a normal finding in the major intracranial vessels. Patient has mild to moderat e atrophy for age with ventricles in proportion. Chronic ischemic changes are mild. Post-contrast images show normal enhancement. No dural thickening. Mastoid air cells and paranasal sinuses are clear. No globe or orbital content abnormality. No sella or supra sella abnormality. IMPRESSION: No acute infarction changes. No hemorrhage, mass or other acute intracranial finding. Mild to moderate atrophy with ventricles in proportion. Mild chronic ischemic changes present.
--- NOTE | 2019-11-12 10:25 | RAD REPORT ---
EXAM DESCRIPTION: MRI - MRA Neck W/Wo Cont - 11/12/2019 10:12 am CLINICAL HISTORY: Left leg weakness, ataxia, stroke-like symptoms COMPARISON: CT angio neck November 11 TECHNIQUE: MR angiography of the cervical vasculature performed. Coronal imaging plane acquisition u tilized. A 16 MultiHance contrast volume was utilized. Coronal reformatted images were generated and reviewed. Vertical axis 3D rotational projections obtained using maximum intensity projection protoco l. FINDINGS: No stenosis or suspicious finding in the great vessels off the aortic arch. No vertebral a rtery origin stenosis. Left vertebral artery is mildly dominant. Bilateral common carotid and internal carotid arteries show no dissection or significant stenosis. Ve ssels are mildly tortuous. No significant vertebral artery finding. There is mild narrowing of the distal right vertebral artery not felt to be hemodynamically significant. No basilar artery abnormality. IMPRESSION: Minimal narrowing of the distal right vertebral artery not likely hemodynamically signif icant. Remainder the examination is without significant vascular finding.
--- NOTE | 2019-11-12 10:27 | RAD REPORT ---
EXAM DESCRIPTION: MRI - MRA Head Wo Cont - 11/12/2019 10:12 am CLINICAL HISTORY: Left leg weakness, ataxia, stroke-like symptoms COMPARISON: None. TECHNIQUE: Axial and coronal 3D [id number] image acquisition was performed. 3D rotational images were generated with source and reconstruction images reviewed. Horizontal and vertical axis rotation al views generated using MIP protocol. FINDINGS: Distal internal carotid arteries show no dissection or stenosis. Basilar artery shows no s uspicious finding. The anterior, middle and posterior cerebral artery distribution show no significan t disease. Patient has a normal variant small right anterior cerebral artery A1 segment. Right anteri or cerebral artery supply is primarily from the left side. No aneurysm or vascular malformation. IMPRESSION: No significant vascular finding.
--- NOTE | 2019-11-12 11:34 | ECHO ---
HEIGHT: 5 ft 8 in WEIGHT: 162 lb 0 oz DATE OF STUDY: 11/12/[address]: Cecilio Langston MD 2-DIMENSIONAL: YES M.MODE: YES DOPPLER: YES COLOR FLOW: YES TDS: NO PORTABLE: NO DEFINITY: NO BUBBLE STUDY: NO DIAGNOSIS: STROKE CARDIAC HISTORY: CATHERIZATION: NO SURGERY: NO PROSTHETIC VALVE: NO PACEMAKER: NO MEASUREMENTS (cm) DIASTOLIC (NORMALS) SYSTOLIC (NORMALS) IVSd 1.1 (0.6-1.2) LA Diam 4.1 (1.9-4.0) LVEF 65% LVIDd 4.3 (3.5-5.7) LVIDs 2.8 (2.0-3.5) %FS 35% LVPWd 1.1 (0.6-1.2) Ao Diam 3.3 (2.0-3.7) 2 DIMENSIONAL ASSESSMENT: RIGHT ATRIUM: NORMAL LEFT ATRIUM: DILATED RIGHT VENTRICLE: NORMAL LEFT VENTRICLE: NORMAL TRICUSPID VALVE: NORMAL MITRAL VALVE: NORMAL PULMONIC VALVE: NORMAL AORTIC VALVE: NORMAL PERICARDIAL EFFUSION: NONE AORTIC ROOT: NORMAL LEFT VENTRICULAR WALL MOTION: NORMAL. DOPPLER/COLOR FLOW: NORMAL. COMMENTS: NORMAL LEFT VENTRICULAR EJECTION FRACTION. MILDLY DILATED LEFT ATRIUM OTHERWISE NORMAL 2D ECHO WITH DOPPLER. TECHNOLOGIST: SHAMAR CORDERO
[2019-11-12] MEDS: PANTOPRAZOLE 40MG TABLET PO SCH ×2 (12:23→17:00)
--- NOTE | 2019-11-12 15:39 | RAD REPORT ---
EXAM DESCRIPTION: RAD - Barium Swallow Modified - 11/12/2019 3:23 pm CLINICAL HISTORY: Difficulty swallowing, difficulty with speech, food and pills sticking COMPARISON: None. TECHNIQUE: The patient was given liquid, semi-solid and solid forms of barium. Lateral view fluorosc opic imaging was performed in conjunction with speech pathology service. FINDINGS: Cineloop acquisitions: 30 Fluoro time: 9 minutes 33 seconds ARYNGEAL PENTRATION: CLEARED WITH THIN FOLLOWING CUED HARD COUGH AND RESWALLOW , NOT CLEARED WITH HON EY ASPIRATION: NO COUGH WITH THIN PHARYNGEAL RESIDUE: VALLECULAR SEVERE NECTAR AND MOD SEVERE HONEY AND SEVERE HONEY, PYRIFORM MOD RUTH ANN RE HONEY, POSTERIOR WALL WORSENED VISCOSITY INCREASED ,REQUIRED MULTI SWALLOWS AND HARD THROAT ERIC AR TO CLEAR OTHER: 1-4 SEC SWALLOW , OSTEOPHYTES AND NARROWING OF PHARYNGEAL IMPRESSION: Modified barium swallow as summarized above and fully detailed on speech pathology repor shailesh
[2019-11-12] MEDS ORDERED: ATORVASTATIN 40 MG TAB PO SCH (21:00)
--- NOTE | 2019-11-12 23:07 | CON ---
Reason For Consultation: Consultation called because of possible stroke. History Of Present Illness: Mr. Thao is an 83-year-old right-handed patient with multiple stroke and myocardial infarction. Risk factors including diabetes mellitus, insulin dependent, hype rtension, prior myocardial infarction with cardiac stents and history of systemic infection 2 years a go that did produce transient dizziness, now comes in with symptoms of "dizziness." The patient and his reported on his symptoms. He said after getting up yesterday he was unable to stand and heena ntain balance because of drifting or falling towards the left side. He was forced to hold onto furni ture and he felt as though the room were tilting on him to the left. He denied david spinning of the room. He denied nausea or vomiting. No fevers or chills. He did say that if he would lie down, hi s symptoms would resolve within about 30 minutes and after sitting up or standing symptoms would retu rn within 1 or 2 minutes. Came into [facility], in the emergency room blood pressure was fo und to be around 180 systolics and heart rate in the 50s. Blood sugar 245. His brain imaging includ ed a negative head CT scan for any acute ischemic or hemorrhagic change. He did receive a half a lit er of normal saline for dehydration and meclizine. Patient reports that he drinks 4 cups of coffee i n the morning, does not drink water throughout the day or actually eating even. Since his hospitaliz ation the symptoms have improved slightly, but still are positional in terms of, lying seems to resol ve his symptoms significantly and sitting up will make it worse. Brain MRI and stroke protocol was n egative for any acute stroke, however, he had mild to moderate atrophy in the periventricular and tom p white matter regions due to small-vessel ischemic disease. Echocardiogram; no significant abnormal ities. His neck magnetic resonance angiogram showed mild narrowing of the distal right vertebral, bu t not likely to be hemodynamically significant. His brain magnetic resonance angiogram studies showe d no significant abnormalities in the ak chin of Hernández. No aneurysms or vascular malformations and h is carotid artery ultrasound showed mild plaque without evidence of hemodynamically significant steno sis. Patient is on aspirin 162 mg daily and Plavix 75 mg daily along with Lipitor 40 mg at bedtime. Past Medical History: As indicated in addition to skin cancer. Surgical History: Hernia repair, multiple cardiac stents. Allergies: NO KNOWN DRUG ALLERGIES. Family History: Noncontributory. Medications: Currently aspirin 162 mg daily, Lipitor 40 mg at bedtime, Plavix 75 mg daily, hydroxyur ea 500 mg on Tuesday, Tuesday, Tuesday, Lantus insulin 50 units with breakfast, Claritin 10 mg daily, meclizine 25 mg as needed, Zofran 4 mg IV as needed, Protonix 40 mg twice daily. Review of Systems: Aside from mentioned, he has no fevers, chills, myalgias, arthralgias. No current nausea or vomiting . No rash, headache, weight change. No psychiatric complaints. No gastrointestinal or genitourinar y issues. No dermatological issues. No other positives on a 10-point systems review. Physical Examination: Vital Signs: Blood pressure is currently 155/67, pulse 65, respiratory rate 16, temperature 97.9, ox ygen saturation 99% on room air. Weight 160 pounds, height 5 feet 8 inches, BMI 24.6. General: Mr. Thao is resting comfortably in his bed. His is at the bedside. HEENT: He is normocephalic, atraumatic. Sclerae anicteric. Oropharynx is moist and pink. Neck: Supple. Chest: Clear. Heart: Regular. Extremities: Show no edema or cyanosis. Neurologic: Alert and oriented to situation, place, and person. He has subtle difficulty with labia l, lingual, and guttural sounds and otherwise reports some dysesthesias to light touch in the left V2 distribution and V3, but normal in V1. Right side V1, V2, and V3 are normal in sensation to light t ouch temperature. His face is symmetric with equal excursions on smiling. Slightly decreased hearin g on the right compared to the left ear. Otherwise, tongue and palate are midline. Motor in the upp er and lower extremities 5/5 proximally and distally. Sensory exam, mild dysesthesia in the left upp er and lower extremities compared to the right side. Coordination intact in the upper and lower extr emities with normal fine finger movements, rapid alternating movements, and [id number] and upper ex tremity [id number]. Gait; he will be ambulated with physical therapy. Does tend to report to dr edgar to the left as he ambulates. Reflexes 2+ in the upper extremities, biceps, 1+ in the triceps, 2+ at the patella, 0 at the heels. Laboratory Studies: White blood cell count 9.9, hemoglobin 12.5, platelets 65, INR 1.09. Chemistrie s show blood sugars ranging from 187 to 264. Sodium 139, potassium 3.8, chloride 109 slightly elevat ed, carbon oxide 24, BUN 12, creatinine 0.74. His HDL cholesterol is low at 24, LDL cholesterol is g ood at 36, total cholesterol 87. His cholesterol to HDL ratio is 3.63 and urinalysis unremarkable. His electrocardiogram shows sinus bradycardia, possible inferior infarct, age undetermined and chest x-ray shows no acute intrathoracic processes. Assessment: Mr. Thao is an 83-year-old patient with multiple stroke risk factors and myocardial inf arction with multiple cardiac stents. He does have symptoms consistent with vertebrobasilar insuffic iency as he sits up. He has vestibular symptoms likely related to decreased blood flow in particular affecting his sensation on the left and his ability to ambulate. He does not have any blood vessel stenosis in his intracranial and extracranial vessels that is significant and does not have a stroke in the cerebellum or brainstem or any region of account for his symptoms. He has no evidence of an i nfection and no systemic issues that we will explain his symptoms. He does not hydrate well, drinkin g just coffee in a day and not drinking water. This is a likely contributing factor to his symptoms. Plan: 1.Patient should stop excessive coffee intake and drink 8 glasses/10 ounces each of water daily. 2.Maintain blood pressure diary. 3.He may benefit from physical therapy to help improve his gait coordination and his balance. 4.Aspirin 81 mg daily. 5.Continue the statin as indicated. 6.Folic acid 1 mg daily. 7.After his discharge, follow up with Dr. Joaquin in clinic 1 month later. SHANICE/BOONE Voice ID: [id number] Report ID: [id number]
[2019-11-13 06:35] LABS: BUN Blood Urea Nitrogen 9 mg/dL (7-18); Bicarbonate 26 mmol/L (21-32); Glucose Level 91 mg/dL (74-106); Potassium 3.5 mmol/L (3.5-5.1); Sodium Level 138 mmol/L (136-145)
[2019-11-13] MEDS: INSULIN -REGULAR HUMAN 50 UNIT/0.5 ML ML SQ SCH ×3 (07:30→16:30)
[2019-11-13] MEDS: INSULIN GLARGINE 100 UNITS/ML SQ SCH (08:53)
[2019-11-13] MEDS: PANTOPRAZOLE 40MG TABLET PO SCH ×2 (08:54→16:32)
[2019-11-13] MEDS: ASPIRIN EC 81 MG TAB PO SCH (08:54)
[2019-11-13] MEDS: CLOPIDOGREL 75 MG TABLET PO SCH (08:54)
[2019-11-13] MEDS: LORATADINE 10 MG TAB PO SCH (08:55)
[2019-11-13] MEDS ORDERED: MAGNESIUM SULFATE 1 gm IVPB 1 GM/100 ML BAG IV ONE (09:00)
[2019-11-13] MEDS ORDERED: POTASSIUM 25 MEQ EFFERV TAB PO ONE (09:00)
[2019-11-13 09:26] VITALS: O2SAT 95
[2019-11-13] MEDS ORDERED: HYDROXYUREA 500 MG CAP PO SCH (17:00)
[2019-11-13 18:15] VITALS: BP 160/82; TEMP 97
--- NOTE | 2019-11-14 00:27 | PN ---
History: The patient still has dizziness, however he is able to ambulate in the room. His barium sw allow is reviewed and I discussed the findings with patient. Consult with ENT has been done, however the patient has not been seen and the patient is very anxious about going home. At this point, the patient will be discharged and he will be followed up in the office tomorrow with necessary consultat ions and referrals. Meanwhile, the patient will be given aspirin as suggested by Dr. Joaquin. DOMINIC/BOONE Voice ID: [id number] Report ID: [id number]
== END 2019-11-13 18:53 | disposition home or self-care (01) ==
LOC: ER 09:52 → ERHOLD 12:45 → 2ND 13:41
PROVIDERS: ADMIT Internal Medicine; ATTEND Family Medicine
DX: R42 Dizziness and giddiness (principal); E11.65 Type 2 diabetes mellitus with hyperglycemia; I10 Essential (primary) hypertension; I25.2 Old myocardial infarction; Z95.5 Presence of coronary angioplasty implant and graft; Z79.82 Long term (current) use of aspirin; Z87.891 Personal history of nicotine dependence; Z79.4 Long term (current) use of insulin; R53.1 Weakness; D69.6 Thrombocytopenia, unspecified
CPT/HCPCS: 93005; 93306; 85025 ×2; 80048 ×2; 36415 ×2; 83735; 85610; 80061; 82947 ×10; 85730; 81015; 84484; 80053; 70496; 70498; 70450; 71045; 74230; 93880; 70553; 70544; 70549; 92526; 92610; 92611; 97112; 97116 ×3; 97161; 97530; 94760 ×5; 96360; 99285; Q9967; A9577; J3475; G0378 ×5; J7040; J7030 ×2; J1815; J8597

== ENCOUNTER 2020-12-02 10:25 | Observation (INO) | payer OTHER ==
[2020-12-02] MEDS ORDERED: ADENOSINE 6 MG/ 2ML VIAL IV ONE (10:45)
[2020-12-02] MEDS ORDERED: NA CHLORIDE 0.9% 1,000 ML ONE (10:46)
[2020-12-02] MEDS ORDERED: FENTANYL CITR 100 MCG/2 ML ONE (10:51)
[2020-12-02 11:02] LABS: Absolute Lymphocytes (CBC) 2.7 K/uL (0.7-4.9); Basophils % 0.7 % (0-1.3); Hematocrit 38.2 % (39.6-49.0); MPV 12.9 fL (7.6-11.3); RBC Red Blood Cell Count 3.83 M/uL (4.33-5.43)
[2020-12-02 11:03] LABS: Protime INR 1.22
[2020-12-02 11:12] LABS: ALT/SGPT 14 U/L (12-78); AST/SGOT 7 U/L (15-37); Albumin 4.1 g/dL (3.4-5.0); Alkaline Phosphatase 59 U/L (45-117); BUN Blood Urea Nitrogen 19 mg/dL (7-18); Bicarbonate 16 mmol/L (21-32); Bilirubin Direct 0.2 mg/dL (0-0.2); Bilirubin Total 0.6 mg/dL (0.2-1.0); Glucose Level 339 mg/dL (74-106); NT PRO-BNP 730 pg/mL (<450); Potassium 4.1 mmol/L (3.5-5.1); Protein, Total 6.7 g/dL (6.4-8.2); Sodium Level 138 mmol/L (136-145); Troponin (Emerg Dept Use Only) < 0.02 ng/mL (0.0-0.045)
[2020-12-02 11:13] LABS: Magnesium 1.3 mg/dL (1.8-2.4)
--- NOTE | 2020-12-02 11:28 | RAD REPORT ---
EXAM DESCRIPTION: Kaley Single View12/02/2020 10:53 am CLINICAL HISTORY: Palpitations COMPARISON: 2019 FINDINGS: Artifact overlies the upper right chest obscuring detail The lungs appear clear of acute infiltrate. The heart is normal size IMPRESSION: No acute abnormalities displayed
--- NOTE | 2020-12-02 12:35 | EDPHYS ---
Physician Documentation [facility] Name: Gil Thao Age: 84 yrs Sex: Male : 1935 Arrival Date: 12/02/2020 Time: 10:27 Bed 2 Private MD: ED Physician Leno Pace HPI: 12/02 12:29 This 84 yrs old Male presents to ER via EMS with complaints of Dizziness. rn 12:29 The patient presents with dizziness, feeling faint, lightheadedness. Onset: The rn symptoms/episode began/occurred this morning. Modifying factors: The symptoms are alleviated by nothing, the symptoms are aggravated by standing up. Severity of symptoms: At their worst the symptoms were moderate in the emergency department the symptoms are unchanged. The patient has not experienced similar symptoms in the past. Reports this AM noticed feeling lightheaded and dizzy, + palpitations. + chest pain and sob. . Historical: - Allergies: 10:59 No Known Allergies; bw - Home Meds: 10:59 amlodipine 5 mg tab 1 tab twice a day [Active]; aspirin 325 mg Oral tab 1 tab once bw daily [Active]; hydroxyurea 500 mg Oral cap 1 cap Mon, Wed, Fri, Sat [Active]; levemir 50 unit daily [Active]; loratadine 10 mg Oral TbDL 1 tab once daily [Active]; Toprol XL 50 mg Oral Tb24 2 tabs once daily [Active]; glyburide-metformin 5-500 mg Oral tab 1 tab four times a day [Active]; - PMHx: 11:00 Diabetes - IDDM; Hypertension; seasonal allergies; Myocardial infarction; bw - Immunization history:: Adult Immunizations up to date. - Social history:: Smoking status: Patient denies any tobacco usage or history of. - Family history:: not pertinent. - Hospitalizations: : No recent hospitalization is reported. ROS: 12:29 Constitutional: Negative for fever, chills, and weight loss, Eyes: Negative for injury, rn pain, redness, and discharge, Neck: Negative for injury, pain, and swelling, Cardiovascular: + palpitations and dizziness Respiratory: + sob Abdomen/GI: Negative for abdominal pain, nausea, vomiting, diarrhea, and constipation, MS/Extremity: Negative for injury and deformity, Skin: Negative for injury, rash, and discoloration, Neuro: Negative for headache, numbness, tingling, and seizure. Exam: 10:45 ECG was reviewed by the Attending Physician. rn 12:29 Constitutional: This is a well developed, well nourished patient who is awake, alert, rn seems anxious Head/Face: Normocephalic, atraumatic. ENT: dry MM Cardiovascular: tachycardic, regular, weak peripheral pulses Respiratory: + mild tachypnea Abdomen/GI: soft, non-tender Skin: Warm, dry MS/ Extremity: Pulses equal, no cyanosis. Neuro: Awake and alert, GCS 15, oriented to person, place, time, and situation. Vital Signs: 10:49 BP 110 / 94; Pulse 179; Resp 20; Temp 97.5(O); Pulse Ox 93% ; Weight 68.95 kg; bw 12:01 BP 147 / 67; Pulse 90; Resp 17; Pulse Ox 100% 2 lpm ; bw 14:27 BP 147 / 65; Pulse 83; Resp 13; Pulse Ox 100% 2 lpm ; jl7 14:31 Pulse 84; jl7 14:32 Pulse 84; jl7 MDM: 10:29 Patient medically screened. rn 10:43 ED course: Adenosine given for SVT since BP ok, converted after 12mg adenosine to sinus rn rhythm with occasional PVC, sob and chest pain resolved as well as dizziness. . 12:29 Differential diagnosis: cardiac arrhythmia, generalized weakness, hyperventilation, rn hypovolemia, idiopathic dizziness, near-syncope. Data reviewed: vital signs, nurses notes, lab test result(s), EKG, radiologic studies, plain films, and as a result, I will admit patient. Counseling: I had a detailed discussion with the patient and/or guardian regarding: the historical points, exam findings, and any diagnostic results supporting the discharge/admit diagnosis, lab results, radiology results, the need for further work-up and treatment in the hospital. Admission orders: after a detailed discussion of the patient's condition and case, the admit orders are written by me. ED course: Pt will be admitted for SVT, requiring medical cardioversion and never happened before, feels much better. . 12/02 10:30 Order name: Basic Metabolic Panel; Complete Time: 11:43 rn 12/02 10:30 Order name: CBC with Diff; Complete Time: 15:14 rn 12/02 10:30 Order name: LFT's; Complete Time: : rn 12/02 10:30 Order name: Magnesium; Complete Time: : rn 12/02 10:30 Order name: NT PRO-BNP; Complete Time: : rn 12/02 10:30 Order name: PT-INR; Complete Time: : rn 12/02 10:30 Order name: Troponin (emerg Dept Use Only); Complete Time: : rn 12/02 10:30 Order name: XRAY Chest (1 view); Complete Time: : rn 12/02 10:30 Order name: EKG; Complete Time: 10:31 rn 12/02 11:13 Order name: Manual Differential; Complete Time: 15:14 EDMS 12/02 12:18 Order name: SARS-COV-2 RT PCR; Complete Time: 15:14 EDMS 12/02 10:30 Order name: Cardiac monitoring; Complete Time: : rn 12/02 10:30 Order name: EKG - Nurse/Tech; Complete Time: : rn 12/02 10:30 Order name: IV Saline Lock; Complete Time: : rn 12/02 10:30 Order name: Labs collected and sent; Complete Time: : rn 12/02 10:30 Order name: O2 Per Protocol; Complete Time: : rn 12/02 10:30 Order name: O2 Sat Monitoring; Complete Time: : rn 12/02 13:52 Order name: CONS Physician Consult EDMS EC:45 Rate is 177 beats/min. Rhythm is regular. QRS [place] is Normal. QRS interval is normal. rn QT interval is normal. No Q waves. T waves are Flattened in leads II, III, aVF, V4, V5, V6. No ST changes noted. Clinical impression: SVT. Interpreted by me. Reviewed by me. Administered Medications: 10:38 Drug: Adenosine 6 mg Route: IVP; Site: right antecubital; bw 14:32 Follow up: Pulse 84 bpm jl7 10:43 Drug: Adenosine 12 mg Route: IVP; Site: right antecubital; bw 14:31 Follow up: Pulse 84 bpm jl7 Disposition: 12/02/20 12:34 Hospitalization ordered by John Pace for Inpatient Admission. Preliminary diagnosis are Supraventricular tachycardia, Chest pain, unspecified. - Bed requested for Telemetry/MedSurg (observation). - Status is Inpatient Admission. bw - Condition is Stable. - Problem is new. - Symptoms have improved. Signatures: Dispatcher [employer] EDAR Leno Pace MD MD rn Timothy Crisostomo, BDR-C [id number] Denisha Isaac Bethany, RN RN bw Harpal Contreras RN jl7 Corrections: (The following items were deleted from the chart) 11:31 10:53 CORONAVIRUS+MR.LAB.BRZ ordered. [facility] 15:32 12:34 Hospitalization Ordered by John Pace MD for Inpatient Admission. Preliminary eb diagnosis is Supraventricular tachycardia; Chest pain, unspecified. Bed requested for Telemetry/MedSurg (observation). Status is Inpatient Admission. Condition is Stable. Problem is new. Symptoms have improved. rn 16:25 15:32 12/02/2020 12:34 Hospitalization Ordered by John Pace MD for Inpatient bw Admission. Preliminary diagnosis is Supraventricular tachycardia; Chest pain, unspecified. Bed requested for Telemetry/MedSurg (observation). Status is Inpatient Admission. Condition is Stable. Problem is new. Symptoms have improved. eb
--- NOTE | 2020-12-02 12:35 | ER ---
Nurse's Notes [facility] Name: Gil Thao Age: 84 yrs Sex: Male : 1935 Arrival Date: 12/02/2020 Time: 10:27 Bed 2 Private MD: Diagnosis: Supraventricular tachycardia;Chest pain, unspecified Presentation: 12/02 10:49 Chief complaint: Patient states: Pt c/o SOB and lightheadedness. Pt falling at home. bw C/o Left sided chest pressure onset today. Coronavirus screen: At this time, unable to obtain information related to travel outside the [place] At this time, the client does not indicate any symptoms associated with coronavirus-19. Ebola Screen: No symptoms or risks identified at this time. Initial Sepsis Screen: Does the patient meet any 2 criteria? No. Patient's initial sepsis screen is negative. Does the patient have a suspected source of infection? No. Patient's initial sepsis screen is negative. Risk Assessment: Do you want to hurt yourself or someone else? Patient reports no desire to harm self or others. Onset of symptoms was December 02, 2020. 10:49 Method Of Arrival: EMS: [facility] 10:49 Acuity: JONY 1 bw Triage Assessment: 10:30 General: Appears distressed, uncomfortable, Behavior is cooperative, anxious. bw 10:30 Pain: Complains of pain in left chest. Neuro: No deficits noted. Cardiovascular: bw Reports chest pain, shortness of breath, Patient's skin is warm and dry. Rhythm is SVT Chest pain began 3 hours prior to arrival. Respiratory: Reports shortness of breath Respiratory effort is even, unlabored, Respiratory pattern is tachypnea. GI: No deficits noted. : No deficits noted. Derm: No deficits noted. Musculoskeletal: No deficits noted. Injury Description: Abrasion sustained to Head, abrasion is PT has skin tears noted to left hand and right side of head. Historical: - Allergies: : No Known Allergies; bw - Home Meds: :59 amlodipine 5 mg tab 1 tab twice a day [Active]; aspirin 325 mg Oral tab 1 tab once bw daily [Active]; hydroxyurea 500 mg Oral cap 1 cap Mon, Wed, Fri, Sat [Active]; levemir 50 unit daily [Active]; loratadine 10 mg Oral TbDL 1 tab once daily [Active]; Toprol XL 50 mg Oral Tb24 2 tabs once daily [Active]; glyburide-metformin 5-500 mg Oral tab 1 tab four times a day [Active]; - PMHx: 11:00 Diabetes - IDDM; Hypertension; seasonal allergies; Myocardial infarction; bw - Immunization history:: Adult Immunizations up to date. - Social history:: Smoking status: Patient denies any tobacco usage or history of. - Family history:: not pertinent. - Hospitalizations: : No recent hospitalization is reported. Assessment: 13:41 Reassessment: Hospitalist at bedside. jl7 Vital Signs: 10:49 BP 110 / 94; Pulse 179; Resp 20; Temp 97.5(O); Pulse Ox 93% ; Weight 68.95 kg; bw 12:01 BP 147 / 67; Pulse 90; Resp 17; Pulse Ox 100% 2 lpm ; bw 14:27 BP 147 / 65; Pulse 83; Resp 13; Pulse Ox 100% 2 lpm ; jl7 14:31 Pulse 84; jl7 14:32 Pulse 84; jl7 ED Course: 10:27 Patient arrived in ED. ds1 10:29 Leno Pace MD is Attending Physician. rn 10:30 Arm band placed on right wrist. bw 10:37 Initial lab(s) drawn, by id, sent to lab. Inserted saline lock: 20 gauge in left kj1 antecubital area, using aseptic technique. Blood collected. 10:49 Irene Rowland, STEFAN is Primary Nurse. bw 10:53 XRAY Chest (1 view) In Process Unspecified. EDMS 10:57 Triage completed. bw 12:32 John Pace MD is Hospitalizing Provider. rn 14:29 pt contacted for update. jl7 Administered Medications: 10:38 Drug: Adenosine 6 mg Route: IVP; Site: right antecubital; bw 14:32 Follow up: Pulse 84 bpm jl7 10:43 Drug: Adenosine 12 mg Route: IVP; Site: right antecubital; bw 14:31 Follow up: Pulse 84 bpm jl7 Outcome: 12:34 Decision to Hospitalize by Provider. rn 16:25 Patient left the ED. bw Signatures: Dispatcher [employer] EDMS Siena Mehta ds1 Leno Pace MD MD rn Leal, Jahala, RN RN jl7 Holly Rodriguez kj1 Irene Rowland RN RN bw Corrections: (The following items were deleted from the chart) 13:41 13:40 Reassessment: delores corrales
[2020-12-02 12:47] LABS: Blood Morphology Comment NOT SEEN (NOT SEEN); Platelet Estimate DECR
--- NOTE | 2020-12-02 14:02 | P.HP ---
Certification for Inpatient Patient admitted to: Observation With expected LOS: <2 Midnights Practitioner: I am a practitioner with admitting privileges, knowledge of patient current condition, hospital course, and medical plan of care. Services: Services provided to patient in accordance with Admission requirements found in Title 42 Section 412.3 of the Code of Federal Regulations Patient History Date of Service: 12/02/20 Reason for admission: SVT, near syncope History of Present Illness: 84yo M, PMH: CAD prior [place] now s/p stent, HTN, CVA (LLE residual weakness), IDDM who presents to ED after dizzy/lightheaded episode at home and falling backwards. In the ED, patient was found to be in SVT to 180s with hypotension, however blood pressure improved and he was able to receive adenosine x2 with improvement of his heart rate. Patient states he got up to answer the phone, and after few steps he felt dizzy/lightheaded and fell backwards "gently" hitting the back of his head. Denies loss of consciousness, no loss of bowel/bladder function. Patient also reports having a similar but "Smaller" episode 2 days ago common described as having a dizzy spell, checked his blood pressure and noted his systolic to be 94. He states his blood pressure medication was recently changed and he was started on a new medication the day before this 1st episode. He also reports stopping his metoprolol on his own. He does not know the name of the new medication he was started on. He otherwise denies any recent fevers/chills, no nausea/vomiting. He does report he has had abnormal bowel movements over the last several months - small loose bowel movements, no watery diarrhea. Allergies No Known Allergies Allergy (Verified 12/02/20 16:42) Home Medications: RX: Aspirin 325 mg PO BEDTIME 05/17/16 RX: Glyburide/Metformin HCl [Glucovance 5-500 mg Tablet] 2 each PO BID 05/17/16 RX: Insulin Detemir [Levemir] 50 units SQ DAILY 05/17/16 RX: Loratadine [Claritin*] 10 mg PO DAILY 05/17/16 Hydroxyurea [Hydrea] 500 mg PO SEECOM 11/11/19 Multivitamin with Iron [Multivitamins with Iron] 2 each PO DAILY 11/11/19 - Past Medical/Surgical History Diabetic: Yes -: DM2, insulin dependent -: [place] s/p stent -: HTN -: Prior CVA, left leg residual weakness -: Cardiac stent -: Hernia repair - Family History Mother -: Diabetes Father -: Kidney disease - Social History Smoking Status: Former smoker Alcohol use: No CD- Drugs: No Caffeine use: Yes Place of Residence: Home (Lives with ) Review of Systems 10-point ROS is otherwise unremarkable Physical Examination - Studies Laboratory Data (last 24 hrs) 12/02/20 10:45: PT 14.1 H, INR 1.22 12/02/20 10:45: WBC 12.20 H, Hgb 12.7 L, Hct 38.2 L, Plt Count 80 L 12/02/20 10:45: Sodium 138, Potassium 4.1, BUN 19 H, Creatinine 1.05, Glucose 339 H, Magnesium 1.3 L* D, Total Bilirubin 0.6, AST 7 L, ALT 14, Alkaline Phosphatase 59 Assessment and Plan - Advance Directives Does patient have a Living Will: Yes Does patient have a Durable POA for Healthcare: Yes Physician Review Additional Text: Physical exam Gen: NAD, sitting on stretcher HEENT: normal conjunctiva, sclera anicteric, PERRL, atraumatic Pulm: CTAB, nonlabored on RA CV: RRR, occasional tachycardia to 90-100s, +systolic murmur Abd: soft, NTND Ext: no rash, no edema, L hand: mild ecchymosis on fingers Problem List: SVT requring medical cardioversion Near-syncope HTN DM2, insulin dependent CAD, prior [place] s/p stent prior CVA, residual LLE weakness -s/p adenosine x2, now sinus tachycardia with PVCs, initital troponin negative; trend troponins, monitor on telemetry -give 50mg Toprol XL now, need to confirm home medications -Cardiology consulted -possibly due to recent change in medications - pt states he was started on new BP medication the day prior to 1st episode, noted his SBP was down to 90 -also reports doesn't drink water - mostly just coffee, will give gentle IVF -mild leukocytosis likely reactive, will check procal, CXR ok, denies any recent illness / fever, no signs of infection on exam, obtain UA as well -patient felt dizzy and fell backwards, denies LOC, states hit back of head "gently", will obtain CT head -PT/OT consult for tomorrow VTE: lovenox Code: full Dispo: anticipate dc home in 24-48hrs Time Spent Managing Pts Care (In Minutes): 65
[2020-12-02] MEDS ORDERED: METOPROLOL XL 50 MG TAB PO ONE (15:57)
[2020-12-02] MEDS: NA CHLORIDE 0.9% 1,000 ML IV SCH (15:57)
[2020-12-02] MEDS: INSULIN -REGULAR HUMAN 50 UNIT/0.5 ML ML SQ SCH ×2 (16:34→20:34)
[2020-12-02] MEDS ORDERED: Magnesium Sulfate 2gm IVPB 2 G/50 ML BAG IV ONE (17:15)
[2020-12-02 17:17] VITALS: BMI 23.0
--- NOTE | 2020-12-02 17:42 | RAD REPORT ---
EXAM DESCRIPTION: CT - Head Brain Wo Cont - 12/02/2020 5:01 pm CLINICAL HISTORY: fall, hit back of R head gently COMPARISON: Ct Stroke Brain Wo Cont dated 11/11/2019 TECHNIQUE: Axial 5 mm thick images of the head were obtained without IV contrast. All CT scans are performed using dose optimization technique as appropriate and may include automated exposure control or mA/KV adjustment according to patient size. FINDINGS: No intracranial hemorrhage, mass, edema or shift of mid-line structures. No acute infarcti on changes seen. No abnormal extra-axial fluid collections. Stable atrophy and chronic ischemic cardona es noted. Ventricles remain in proportion. Mastoid air cells and visualized portions of the paranasal sinuses are clear. No skull fracture or acute bone finding. IMPRESSION: Negative non-contrast CT head examination for acute finding No identifiable change from November 11.
[2020-12-02 19:30] LABS: Urine Appearance CLEAR; Urine Bilirubin NEGATIVE (NEG); Urine Blood NEGATIVE (NEG); Urine Color YELLOW; Urine Glucose 3+ (NEG); Urine Protein NEGATIVE (NEG); Urine pH 5.5 (5.0-7.0)
[2020-12-02 19:37] LABS: Urine Microscopic Reflex NO UMIC
[2020-12-02 19:43] LABS: Thyroid Stimulating Hormone 3.51 uIU/mL (0.360-3.740); Troponin I 0.21 ng/mL (0.0-0.045)
[2020-12-03 00:07] LABS: Troponin I 0.19 ng/mL (0.0-0.045)
[2020-12-03 04:18] LABS: Basophils % 0.4 % (0-1.3); Hematocrit 34.9 % (39.6-49.0); Lymphocytes % 25.7 % (15.3-44.8); RBC Red Blood Cell Count 3.52 M/uL (4.33-5.43)
[2020-12-03 04:37] LABS: ALT/SGPT 15 U/L (12-78); AST/SGOT 9 U/L (15-37); Albumin 3.7 g/dL (3.4-5.0); Alkaline Phosphatase 52 U/L (45-117); BUN Blood Urea Nitrogen 14 mg/dL (7-18); Bicarbonate 24 mmol/L (21-32); Bilirubin Total 0.6 mg/dL (0.2-1.0); Glucose Level 139 mg/dL (74-106); Magnesium 1.9 mg/dL (1.8-2.4); Potassium 4.5 mmol/L (3.5-5.1); Protein, Total 6.3 g/dL (6.4-8.2); Sodium Level 141 mmol/L (136-145)
[2020-12-03] MEDS: NA CHLORIDE 0.9% 1,000 ML IV SCH (05:36)
[2020-12-03] MEDS ORDERED: METOPROLOL XL 50 MG TAB PO SCH (06:00)
[2020-12-03] MEDS: INSULIN -REGULAR HUMAN 50 UNIT/0.5 ML ML SQ SCH (07:20)
[2020-12-03 07:38] VITALS: O2SAT 98
[2020-12-03 08:25] VITALS: BP 144/54; TEMP 98.5
[2020-12-03] MEDS ORDERED: ASPIRIN EC 81 MG TAB PO SCH (09:00)
[2020-12-03] MEDS ORDERED: ENOXAPARIN 40 MG/0.4 ML SQ SCH (09:00)
--- NOTE | 2020-12-03 20:04 | P.DS ---
Admission Date: 12/02/20 Discharge Date: 12/03/20 Disposition: ROUTINE DISCHARGE Discharge Condition: GOOD Reason for Admission: SVT, near syncope Consultations: Cardiology - Dr. Heath Procedures: CXR (12/02): Negative non-contrast CT head examination for acute finding. No identifiable change from November 11. CT Head (12/02): Negative non-contrast CT head examination for acute finding. No identifiable change from November 11. Problem List: SVT requring medical cardioversion Near-syncope HTN DM2, insulin dependent CAD, prior [place] s/p stent prior CVA, residual LLE weakness Brief History of Present Illness: 84yo M, PMH: CAD prior [place] now s/p stent, HTN, CVA (LLE residual weakness), IDDM who presents to ED after dizzy/lightheaded episode at home and falling backwards. In the ED, patient was found to be in SVT to 180s with hypotension, however blood pressure improved and he was able to receive adenosine x2 with improvement of his heart rate. Patient states he got up to answer the phone, and after few steps he felt dizzy/lightheaded and fell backwards "gently" hitting the back of his head. Denies loss of consciousness, no loss of bowel/bladder function. Patient also reports having a similar but "Smaller" episode 2 days ago common described as having a dizzy spell, checked his blood pressure and noted his systolic to be 94. He states his blood pressure medication was recently changed and he was started on a new medication the day before this 1st episode. He also reports stopping his metoprolol on his own. He does not know the name of the new medication he was started on. He otherwise denies any recent fevers/chills, no nausea/vomiting. He does report he has had abnormal bowel movements over the last several months - small loose bowel movements, no watery diarrhea. Hospital Course: Patient's metoprolol was restarted and his heart rate remained < 90. He was monitored on telemetry and did not have any events/arrhythmias. Cardiology was consulted and recommended no change in medications and ok to discharge patient home. It was felt that patient likely went into SVT due to stopping his metoprolol on his own. There is a possibility he went into SVT due to low blood pressure as well. He was advised to take half dose of his HCTZ for the next 3 days and monitor his BP. He will follow up with Cardiology in the next 1-2 weeks. Vital Signs/Physical Exam: Physical exam Gen: NAD, AAOx3 HEENT: normal conjunctiva, sclera anicteric, PERRL, atraumatic Pulm: CTAB, nonlabored on RA CV: RRR, +systolic murmur Abd: soft, NTND Ext: no rash, no edema, L hand: mild ecchymosis on fingers Temp Pulse Resp BP Pulse Ox 98.5 F 61 14 144/54 H 100 12/03/20 08:00 12/03/20 08:00 12/03/20 08:00 12/03/20 08:00 12/03/20 08:00 Laboratory Data at Discharge: WBC 11.80 K/uL (4.3-10.9) H 12/03/20 04:11 Hgb 11.9 g/dL (13.6-17.9) L 12/03/20 04:11 Hct 34.9 % (39.6-49.0) L 12/03/20 04:11 Plt Count 49 K/uL (152-406) L* D 12/03/20 04:11 PT 14.1 SECONDS (9.5-12.5) H 12/02/20 10:45 INR 1.22 12/02/20 10:45 Sodium 141 mmol/L (136-145) 12/03/20 04:11 Potassium 4.5 mmol/L (3.5-5.1) 12/03/20 04:11 BUN 14 mg/dL (7-18) 12/03/20 04:11 Creatinine 0.79 mg/dL (0.55-1.3) 12/03/20 04:11 Glucose 139 mg/dL (74-106) H 12/03/20 04:11 Phosphorus 4.0 mg/dL (2.5-4.9) 12/03/20 04:11 Magnesium 1.9 mg/dL (1.8-2.4) 12/03/20 04:11 Total Bilirubin 0.6 mg/dL (0.2-1.0) 12/03/20 04:11 AST 9 U/L (15-37) L 12/03/20 04:11 ALT 15 U/L (12-78) 12/03/20 04:11 Alkaline Phosphatase 52 U/L (45-117) 12/03/20 04:11 Troponin I 0.14 ng/mL (0.0-0.045) H 12/03/20 04:11 Home Medications: Aspirin 325 mg PO BEDTIME 05/17/16 Glyburide/Metformin HCl [Glucovance 5-500 mg Tablet] 2 each PO BID 05/17/16 Insulin Detemir [Levemir] 50 units SQ DAILY 05/17/16 Loratadine [Claritin*] 10 mg PO DAILY 05/17/16 Hydroxyurea [Hydrea*] 500 mg PO SEECOM 11/11/19 Multivitamin with Iron [Multivitamins with Iron] 2 each PO DAILY 11/11/19 hydroCHLOROthiazide [Hydrochlorothiazide] 25 mg PO DAILY 12/03/20 Physician Discharge Instructions: Your heart rate was found to be going very fast. Cardiology was consulted and recommended continuing your metoprolol and hydrochlorathiazide (except take only 1/2 pill of the hydrochlorathiazide for the next 3 days) as prescribed. Your heart rate remained stable on metoprolol while you were in the hospital and your blood pressure was mildly elevated. Please be sure to stay adequately hydrated with these medications. Follow up in the next 1-[address] Heath. Diet: ADA Activity: Ad watson Followup: Curtis Heath MD [ACTIVE - CAN ADMIT] - 1-2 Weeks (buyer planner - call to schedule an appointment ) Taz Oates MD [Primary Care Provider] - Time spent managing pt's care (in minutes): 40
--- NOTE | 2020-12-03 22:29 | EKG ---
Test Date: 2020-12-02 Test Time: 10:41:32 Agriculture Inspector: BRANDON MEASUREMENT RESULTS: Intervals: Rate: 102 PA: 140 QRSD: 102 QT: 356 QTc: 463 Amelia: P: 75 PA: 140 QRS: 71 T: -55 INTERPRETIVE STATEMENTS: Sinus tachycardia with occasional premature ventricular complexes Possible Inferior infarct, age undetermined ST & T wave abnormality, consider lateral ischemia Abnormal ECG Compared to ECG 11/11/2019 10:15:17 Ventricular premature complex(es) now present ST (T wave) deviation now present Possible ischemia now present Sinus bradycardia no longer present Sinus arrhythmia no longer present Myocardial infarct finding still present Electronically Signed On 12-03-20 22:25:45 LINE LEADER by Curtis Heath
--- NOTE | 2020-12-03 22:29 | EKG ---
Test Date: 2020-12-02 Test Time: 10:24:49 Tool Maker Bench: BRANDON MEASUREMENT RESULTS: Intervals: Rate: 177 ND: QRSD: 104 QT: 276 QTc: 473 Wayne: P: ND: QRS: 67 T: 262 INTERPRETIVE STATEMENTS: Supraventricular tachycardia Marked ST abnormality, possible inferior subendocardial injury Abnormal ECG Compared to ECG 11/11/2019 10:15:17 ST (T wave) deviation now present Sinus bradycardia no longer present Sinus arrhythmia no longer present Myocardial infarct finding no longer present Electronically Signed On 12-03-20 22:25:46 EVP MANAGING DIRECTOR by Curtis Heath
--- NOTE | 2020-12-08 12:40 | CON ---
Date of Consultation: 12/03/2020 Reason For Consultation: Supraventricular tachycardia and presyncope. History Of Present Illness: Mr. Thao is an 84-year-old white male. He came in with dizziness, feel ing faint and lightheaded, was found to be in supraventricular tachycardia and was given IV Adenocard . Apparently, his medications have been changed and he used to be taking metoprolol, but he is not t aking it anymore. He was changed to amlodipine and now he is in SVT. He has a history of hypertensi on. He has a history of diabetes, coronary artery disease. After the Adenocard, his heart rate has been in the 70s and the patient is asymptomatic. He is back on metoprolol. He denied any chest pain . Denied any nausea, vomiting, diaphoresis, PND, orthopnea, pedal edema. He had palpitation and pre syncope. Denied any fever or chills. Past Medical History: As stated above. Allergies: NONE. Review of Systems: Negative. Social History: Negative. Family History: Noncontributory. Medications: Supposed to be amlodipine once a day of 5 mg, aspirin, Hydroxyurea, loratadine, Toprol- XL 50 mg daily, glyburide with metformin 1 p.o. daily. Physical Examination: Vital Signs: When I saw him, his vital signs were stable. He was afebrile. His heart rate was 70, blood pressure was 149/64. He was afebrile, sinus rhythm. HEENT: Negative. Neck: Supple with no bruit. Chest: Clear to auscultation and percussion. Cardiac: Revealed a regular rhythm and rate. No murmurs, gallops, or rubs. Abdomen: Benign. Extremities: Revealed no clubbing, cyanosis, or edema. Diagnostic Data: He had 99% saturation on room air. His creatinine was 0.79. White count was 11.8. His platelet count was 80,000. His magnesium level was 1.3. His glucose was 339. His troponin wa s 0.21. BNP was 730. Impression And Plan: Supraventricular tachycardia secondary to beta-anais withdrawal. This is the reason his BNP and troponin are elevated. I certainly would not consider this to be an acute barnes ry syndrome. I think he needs to be put back on his beta-anais, he needs to have his magnesium sup plemented as it is low. His other problems including diabetes are poorly controlled. I will leave t hat up to the primary care physician to address. He also has a history of hypertension and coronary artery disease, both of those are stable. I am comfortable with Mr. Thao going home whenever it is okay with his primary care physician. I will see him in the office as an outpatient, but please make sure he stays on the beta-anais and Norvasc. DORA/BOONE Voice ID: [id number] Report ID: [id number]
== END 2020-12-03 10:15 | disposition home or self-care (01) ==
LOC: ER 10:25 → ERHOLD 15:26 → 4TH 15:44
PROVIDERS: ADMIT Hospitalist; ATTEND Hospitalist
DX: I47.1 Supraventricular tachycardia (principal); R55 Syncope and collapse; I10 Essential (primary) hypertension; E11.9 Type 2 diabetes mellitus without complications; Z79.4 Long term (current) use of insulin; I25.10 Atherosclerotic heart disease of native coronary artery without angina pectoris; Z20.822 Contact with and (suspected) exposure to COVID-19; I25.2 Old myocardial infarction; Z95.5 Presence of coronary angioplasty implant and graft; I69.344 Monoplegia of lower limb following cerebral infarction affecting left non-dominant side; Z87.891 Personal history of nicotine dependence
CPT/HCPCS: 93005 ×2; 85025 ×2; 80048; 36415; 83735 ×3; 84100; 85610; 82947 ×3; 80076; 84443; 81003; 84484 ×4; 84439; 80053; 84145; 83880; 70450; 71045; 94760 ×2; 96374; 99291; 99292; U0003; J0153; J3475; J7030 ×2; G0378 ×3; J3010

== ENCOUNTER 2020-12-10 12:51 | Emergency (ER) | payer OTHER ==
--- NOTE | 2020-12-10 13:42 | RAD REPORT ---
EXAM DESCRIPTION: Kaley Single View12/10/2020 1:15 pm CLINICAL HISTORY: Palpitations COMPARISON: December 02, 2020 FINDINGS: The lungs appear clear of acute infiltrate. The heart is normal size IMPRESSION: No acute abnormalities displayed
[2020-12-10 14:02] LABS: Basophils % 0.4 % (0-1.3); Hematocrit 36.6 % (39.6-49.0); Lymphocytes % 22.5 % (15.3-44.8); MPV 12.4 fL (7.6-11.3); RBC Red Blood Cell Count 3.66 M/uL (4.33-5.43)
[2020-12-10 14:27] LABS: BUN Blood Urea Nitrogen 17 mg/dL (7-18); Bicarbonate 25 mmol/L (21-32); Glucose Level 311 mg/dL (74-106); Magnesium 1.6 mg/dL (1.8-2.4); NT PRO-BNP 2232 pg/mL (<450); Potassium 4.8 mmol/L (3.5-5.1); Sodium Level 138 mmol/L (136-145); Troponin (Emerg Dept Use Only) < 0.02 ng/mL (0.0-0.045)
--- NOTE | 2020-12-10 15:11 | ER ---
Nurse's Notes [facility] Name: Gil Thao Age: 84 yrs Sex: Male : 1935 Arrival Date: 12/10/2020 Time: 12:52 Bed 2 Private MD: Diagnosis: Weakness;Dizziness and giddiness;Supraventricular tachycardia;Hypomagnesemia Presentation: 12/10 12:59 Chief complaint: EMS states: "pt was at home today and reported feeling dizzy with head jd3 pressure. pt's blood pressure at the scene was low and heart rate at 140's. pt was sia down on our stretcher and reported to start to feel better. blood sugar was 299 and pt took 50 units of his Levemir and reported this is when he started to feel better. out next blood sugar was 269. pt reports that most symptoms have gone done and vitals are looking better.". Coronavirus screen: At this time, the client does not indicate any symptoms associated with coronavirus-19. Ebola Screen: Patient negative for fever greater than or equal to 101.5 degrees Fahrenheit, and additional compatible Ebola Virus Disease symptoms. Initial Sepsis Screen: Does the patient meet any 2 criteria? No. Patient's initial sepsis screen is negative. Does the patient have a suspected source of infection? No. Patient's initial sepsis screen is negative. Risk Assessment: Do you want to hurt yourself or someone else? Patient reports no desire to harm self or others. Onset of symptoms was December 10, 2020. 12:59 Method Of Arrival: EMS: [facility] jd3 12:59 Acuity: JONY 3 jd3 Historical: - Allergies: 13:05 No Known Allergies; jd3 - Home Meds: 13:05 aspirin 325 mg Oral tab 1 tab once daily [Active]; glyburide-metformin 5-500 mg Oral jd3 tab 1 tab four times a day [Active]; hydroxyurea 500 mg Oral cap 1 cap Mon, Wed, Fri, Sat [Active]; levemir 50 unit daily [Active]; loratadine 10 mg Oral TbDL 1 tab once daily [Active]; Toprol XL 50 mg Oral Tb24 2 tabs once daily [Active]; - PMHx: 13:05 Diabetes - IDDM; Hypertension; Myocardial infarction; seasonal allergies; CVA; jd3 - PSHx: 13:05 Heart stents; jd3 - Immunization history:: Adult Immunizations up to date. - Social history:: Smoking status: unknown. - Family history:: not pertinent. - Hospitalizations: : The patient was recently seen at [facility]. Screenin:31 Abuse screen: Denies threats or abuse. Nutritional screening: No deficits noted. jd3 Tuberculosis screening: No symptoms or risk factors identified. Fall Risk Ambulatory Aid- None/Bed Rest/Nurse Assist (0 pts). Gait- Normal/Bed Rest/Wheelchair (0 pts) Mental Status- Oriented to own ability (0 pts). Total An Fall Scale indicates No Risk (0-24 pts). Assessment: 13:00 General: Appears in no apparent distress. comfortable, Behavior is calm, cooperative, jd3 appropriate for age. Pain: Denies pain. Neuro: Level of Consciousness is awake, alert, obeys commands, Oriented to person, place, time, situation, Denies dizziness, headache. Cardiovascular: Capillary refill < 3 seconds Patient's skin is warm and dry. Rhythm is regular. Respiratory: Airway is patent Respiratory effort is even, unlabored, Respiratory pattern is regular, symmetrical, Denies cough, shortness of breath. GI: No signs and/or symptoms were reported involving the gastrointestinal system. : No signs and/or symptoms were reported regarding the genitourinary system. EENT: No signs and/or symptoms were reported regarding the EENT system. Derm: Skin is intact, Skin is dry, Skin is normal, Skin temperature is warm. Musculoskeletal: Circulation, motion, and sensation intact. Range of motion: intact in all extremities. 14:00 Reassessment: Patient appears in no apparent distress at this time. Patient and/or jd3 family updated on plan of care and expected duration. Pain level reassessed. Patient is alert, oriented x 3, equal unlabored respirations, skin warm/dry/pink. Patient denies pain at this time. 15:00 Reassessment: Patient appears in no apparent distress at this time. No changes from jd3 previously documented assessment. Patient and/or family updated on plan of care and expected duration. Pain level reassessed. Patient is alert, oriented x 3, equal unlabored respirations, skin warm/dry/pink. 16:10 Reassessment: Patient appears in no apparent distress at this time. Patient and/or jd3 family updated on plan of care and expected duration. Pain level reassessed. Patient is alert, oriented x 3, equal unlabored respirations, skin warm/dry/pink. awaiting IV medication infusion to finish prior to discharge. 16:18 Reassessment: D/C ON HOLD FOR IV MAGNESIUM. bp 17:10 Reassessment: Patient and/or family updated on plan of care and expected duration. Pain jd3 level reassessed. Patient is alert, oriented x 3, equal unlabored respirations, skin warm/dry/pink. awaiting ride for discharge. 17:20 Reassessment: PT D/C HOME VIA W/C WITH FAMILY, DX WITH SVT AND HYPOMAGNESEMIA. bp Vital Signs: 13:03 BP 111 / 65; Pulse 74; Resp 14 S; Temp 97.6(O); Pulse Ox 100% on R/A; Weight 68.49 kg jd3 (R); Height 5 ft. 8 in. (172.72 cm) (R); Pain 0/10; 14:55 BP 123 / 51; Pulse 69; Resp 12; Pulse Ox 98% on R/A; mh5 16:10 BP 115 / 53; Pulse 64; Resp 15 S; Pulse Ox 99% on R/A; jd3 17:10 BP 131 / 63; Pulse 63; Resp 17 S; Pulse Ox 100% on R/A; jd3 13:03 Body Mass Index 22.96 (68.49 kg, 172.72 cm) jd3 ED Course: 12:52 Patient arrived in ED. am2 12:52 Leno Pace MD is Attending Physician. rn 12:59 Alex Ashraf, STEFAN is Primary Nurse. jd3 13:03 Triage completed. jd3 13:04 Arm band placed on. jd3 13:15 XRAY Chest (1 view) In Process Unspecified. EDMS 13:30 Initial lab(s) drawn, by me, sent to lab. EKG done, by ED staff, reviewed by Leno Pace MD. Inserted saline lock: 20 gauge in right antecubital area, using aseptic technique. Blood collected. 13:31 Patient has correct armband on for positive identification. Bed in low position. Call j light in reach. Side rails up X2. ekg monitor tech on. Pulse ox on. NIBP on. 17:20 No provider procedures requiring assistance completed. IV discontinued, intact, bp bleeding controlled, No redness/swelling at site. Pressure dressing applied. Administered Medications: 15:00 Drug: Magnesium Sulfate 2 grams Route: IVPB; Infused Over: 2 hrs; Site: right forearm; bp 17:21 Follow up: IV Status: Completed infusion; IV Intake: 50ml bp Intake: 17:21 IV: 50ml; Total: 50ml. bp Outcome: 15:10 Discharge ordered by . rn 17:20 Discharged to home ambulatory, with family. bp 17:20 Condition: stable 17:20 Discharge instructions given to patient, Instructed on discharge instructions, follow up and referral plans. Demonstrated understanding of instructions, follow-up care. 17:21 Patient left the ED. bp Signatures: Dispatcher [employer] EDMS Leno Pace MD MD rn Martinez, Maria 5 Marbella Askew am2 Alex Ashraf RN RN jEliseo Gunn RN RN bp Corrections: (The following items were deleted from the chart) 17:20 17:20 Reassessment: PT D/C HOME VIA W/C WITH FAMILY bp bp
--- NOTE | 2020-12-10 15:11 | EDPHYS ---
Physician Documentation [facility] Name: Gil Thao Age: 84 yrs Sex: Male : 1935 Arrival Date: 12/10/2020 Time: 12:52 Bed 2 Private MD: ED Physician Leno Pace HPI: 12/10 12:56 This 84 yrs old Male presents to ER via Unassigned with complaints of General rn Weakness. 12:56 The patient presents with dizziness, lightheadedness. Onset: The symptoms/episode rn began/occurred this morning. Modifying factors: The symptoms are alleviated by lying down, the symptoms are aggravated by standing up, changing position. Associated signs and symptoms: Pertinent negatives: abdominal pain, chest pain, combativeness, confusion, focal weakness, seizure, shortness of breath, syncope, vomiting. Severity of symptoms: At their worst the symptoms were mild in the emergency department the symptoms are unchanged. The patient has not experienced similar symptoms in the past. The patient has been recently been admitted at [facility]. Reports generalized weakness and dizziness that began this AM, felt lightheaded and dizzy, assoc with palpitations. Recently admitted to this hospital for SVT and required adenosine to cardiovert. . Historical: - Allergies: 13:05 No Known Allergies; jd3 - Home Meds: 13:05 aspirin 325 mg Oral tab 1 tab once daily [Active]; glyburide-metformin 5-500 mg Oral jd3 tab 1 tab four times a day [Active]; hydroxyurea 500 mg Oral cap 1 cap Mon, Wed, Fri, Sat [Active]; levemir 50 unit daily [Active]; loratadine 10 mg Oral TbDL 1 tab once daily [Active]; Toprol XL 50 mg Oral Tb24 2 tabs once daily [Active]; - PMHx: 13:05 Diabetes - IDDM; Hypertension; Myocardial infarction; seasonal allergies; CVA; jd3 - PSHx: 13:05 Heart stents; jd3 - Immunization history:: Adult Immunizations up to date. - Social history:: Smoking status: unknown. - Family history:: not pertinent. - Hospitalizations: : The patient was recently seen at [facility]. ROS: 13:22 Constitutional: Negative for fever, chills, and weight loss, Eyes: Negative for injury, rn pain, redness, and discharge, Neck: Negative for injury, pain, and swelling, Cardiovascular: Negative for chest pain, and edema, Respiratory: Negative for cough, wheezing, and pleuritic chest pain, Abdomen/GI: Negative for abdominal pain, nausea, vomiting, diarrhea, and constipation, Back: Negative for injury and pain, : Negative for injury, bleeding, discharge, and swelling, MS/Extremity: Negative for injury and deformity, Skin: Negative for injury, rash, and discoloration, Neuro: Negative for numbness, tingling, and seizure. 13:22 All other systems are negative. rn Exam: 13:22 Constitutional: This is a well developed, well nourished patient who is awake, alert, rn and in no acute distress. Head/Face: Normocephalic, atraumatic. Cardiovascular: Regular rate and rhythm. No pulse deficits. Respiratory: No increased work of breathing, no retractions or nasal flaring. Abdomen/GI: soft, non-tender Skin: Warm, dry MS/ Extremity: Pulses equal, no cyanosis. Neurovascular intact. Full, normal range of motion. Equal circumference. Neuro: Awake and alert, GCS 15, oriented to person, place, time, and situation. Vital Signs: 13:03 BP 111 / 65; Pulse 74; Resp 14 S; Temp 97.6(O); Pulse Ox 100% on R/A; Weight 68.49 kg jd3 (R); Height 5 ft. 8 in. (172.72 cm) (R); Pain 0/10; 14:55 BP 123 / 51; Pulse 69; Resp 12; Pulse Ox 98% on R/A; mh5 16:10 BP 115 / 53; Pulse 64; Resp 15 S; Pulse Ox 99% on R/A; jd3 17:10 BP 131 / 63; Pulse 63; Resp 17 S; Pulse Ox 100% on R/A; jd3 13:03 Body Mass Index 22.96 (68.49 kg, 172.72 cm) jd3 MDM: 12:52 Patient medically screened. rn 15:07 Differential diagnosis: cardiac arrhythmia, generalized weakness, hyperventilation, rn hypovolemia, idiopathic dizziness, COVID, pneumonia, dehydration. Data reviewed: vital signs, nurses notes, lab test result(s), EKG, radiologic studies, plain films, and as a result, I will discharge patient. Counseling: I had a detailed discussion with the patient and/or guardian regarding: the historical points, exam findings, and any diagnostic results supporting the discharge/admit diagnosis, lab results, radiology results, the need for outpatient follow up, to return to the emergency department if symptoms worsen or persist or if there are any questions or concerns that arise at home. Response to treatment: the patient's symptoms have resolved after treatment, the patient's condition has returned to base line, and as a result, I will discharge patient. Special discussion: I discussed with the patient/guardian in detail that at this point there is no indication for admission to the hospital. It is understood, however, that if the symptoms persist or worsen the patient needs to return immediately for re-evaluation. Based on the history and exam findings, there is no indication for further emergent testing or inpatient evaluation. I discussed with the patient/guardian the need to see the laster hand for further evaluation of the symptoms. ED course: Consulted with Dr. Heath, agrees doesn't have to be admitted to hospital, recommends doubling his metoprolol and f/u with him in clinic. Patient happy to do it.. 15:11 ED course: Seems like patient had episode of SVT prior to arrival that resolved on its rn own. I suspect this happened because EMS reported tachycardia to 140s-150s as well as hypotension that resolved. . 03 12:54 Order name: CBC with Diff; Complete Time: 14:30 rn 12/10 12:54 Order name: Basic Metabolic Panel; Complete Time: 14:30 rn 12/10 12:54 Order name: Magnesium; Complete Time: 14:30 rn 12/10 12:54 Order name: Troponin (emerg Dept Use Only); Complete Time: 14:30 rn 12/10 12:54 Order name: BNP; Complete Time: 14:30 rn 12/10 12:54 Order name: XRAY Chest (1 view); Complete Time: 13:44 rn 12/10 12:54 Order name: IV Start; Complete Time: 13:30 rn 12/10 12:54 Order name: EKG; Complete Time: 12:54 rn 12/10 12:54 Order name: EKG - Nurse/Tech; Complete Time: 13:30 rn Administered Medications: 15:00 Drug: Magnesium Sulfate 2 grams Route: IVPB; Infused Over: 2 hrs; Site: right forearm; bp 17:21 Follow up: IV Status: Completed infusion; IV Intake: 50ml bp Disposition: 12/10/20 15:10 Discharged to Home. Impression: Weakness, Dizziness and giddiness, Supraventricular tachycardia, Hypomagnesemia. - Condition is Stable. - Discharge Instructions: Dizziness, Paroxysmal Supraventricular Tachycardia, Weakness. - Medication Reconciliation Form, Thank You Letter, Antibiotic Education, Prescription Opioid Use form. - Follow up: Private Physician; When: As needed; Reason: Recheck today's complaints, Re-evaluation by your physician. - Problem is new. - Symptoms have improved. Signatures: Dispatcher [employer] EDMS Leno Pace MD MD rn Davies, Jonathon, RN RN jd3 Peltier, Brian, RN RN bp Corrections: (The following items were deleted from the chart) 17:21 15:10 12/10/2020 15:10 Discharged to Home. Impression: Weakness; Dizziness and bp giddiness; Supraventricular tachycardia; Hypomagnesemia. Condition is Stable. Forms are Medication Reconciliation Form, Thank You Letter, Antibiotic Education, Prescription Opioid Use. Follow up: Private Physician; When: As needed; Reason: Recheck today's complaints, Re-evaluation by your physician. Problem is new. Symptoms have improved. rn
[2020-12-10] MEDS ORDERED: Magnesium Sulfate 2gm IVPB 2 G/50 ML BAG IV ONE (15:31)
[2020-12-10 22:45] VITALS: TEMP 97.6
[2020-12-10 22:49] VITALS: BP 131/63; O2SAT 100
--- NOTE | 2020-12-11 05:13 | EKG ---
Test Date: 2020-12-10 Test Time: 13:17:26 It Quality Analyst: KRZYSZTOF MEASUREMENT RESULTS: Intervals: Rate: 73 MN: 144 QRSD: 106 QT: 390 QTc: 429 [place]: P: 75 MN: 144 QRS: 86 T: -67 INTERPRETIVE STATEMENTS: Normal sinus rhythm Possible Inferior infarct, age undetermined Abnormal ECG Compared to ECG 12/02/2020 10:41:32 Sinus tachycardia no longer present Ventricular premature complex(es) no longer present ST (T wave) deviation no longer present Possible ischemia no longer present Myocardial infarct finding still present Electronically Signed On 12-11-20 05:11:18 [employer] by Curtis Heath
== END 2020-12-10 17:21 | disposition home or self-care (01) ==
LOC: ER 12:51
DX: R53.1 Weakness (principal); R42 Dizziness and giddiness; E83.42 Hypomagnesemia; I47.1 Supraventricular tachycardia; Z95.5 Presence of coronary angioplasty implant and graft; E11.9 Type 2 diabetes mellitus without complications; Z79.4 Long term (current) use of insulin; I10 Essential (primary) hypertension; I25.2 Old myocardial infarction; Z86.73 Personal history of transient ischemic attack (TIA), and cerebral infarction without residual deficits
CPT/HCPCS: 96365; 93005; 85025; 80048; 36415; 83735; 84484; 83880; 71045; 99285; 96366; J3475

== ENCOUNTER 2021-09-04 11:48 | Emergency (ER) | payer OTHER ==
[2021-09-04 12:52] LABS: Albumin 3.6 g/dL (3.4-5.0); Bilirubin Direct 0.4 mg/dL (0-0.2); Bilirubin Total 0.8 mg/dL (0.2-1.0); Potassium 4.3 mmol/L (3.5-5.1); Protein, Total 6.8 g/dL (6.4-8.2)
[2021-09-04 12:59] LABS: Absolute Lymphocytes (CBC) 2.8 K/uL (0.7-4.9); Basophils % 0.4 % (0-1.3); Hematocrit 37.8 % (39.6-49.0); Lymphocytes % 18.6 % (15.3-44.8); MPV 12.1 fL (7.6-11.3); RBC Red Blood Cell Count 4.05 M/uL (4.33-5.43)
--- NOTE | 2021-09-04 13:04 | RAD REPORT ---
EXAM DESCRIPTION: US - Abdomen Exam Limited - 09/04/2021 12:46 pm CLINICAL HISTORY: ABD PAIN COMPARISON: Abdomen Exam Complete dated 09/03/2021 FINDINGS: At the gallbladder fossa there is normal thickness, normal echogenicity of the gallbladder wall. Very dense posterior acoustic shadowing is present. This classic RADHA triad is seen with a gall bladder packed with numerous gallstones. This matches the prior day examination. No new wall thickeni ng or pericholecystic fluid identified. No common duct stone or biliary tree dilatation identified. Common bile duct is 5 mm. IMPRESSION: Gallbladder densely packed with gallstones. No wall thickening or pericholecystic fluid identified. No biliary tree abnormality.
--- NOTE | 2021-09-04 13:46 | RAD REPORT ---
EXAM DESCRIPTION: CT - Abdomen Pelvis W Contrast - 09/04/2021 1:32 pm CLINICAL HISTORY: elevated LFTS, possible choledocho;Abd pain COMPARISON: Abdomen Pelvis W Contrast dated 03/29/2017; Abdomen Exam Limited dated 09/04/2021 TECHNIQUE: Biphasic, helical CT imaging of the abdomen and pelvis was performed following 100 ml non -ionic IV contrast. No oral contrast administered. All CT scans are performed using dose optimization technique as appropriate and may include automated exposure control or mA/KV adjustment according to patient size. FINDINGS: Prominent COPD changes are present in each lung base. No acute lung base finding. No cardi omegaly or pericardial effusion. No focal liver lesion. No capsule nodularity present. Granulomatous calcifications are seen in the li favio and spleen. No portal vein abnormality identified. There is no mass of the pancreatic parenchyma identifiable. Gallbladder is known to be densely packed with multiple gallstones. These are occult on CT imaging. Gallbladder wall does appear slightly edematous on CT imaging. Additionally, biliary tree and appears more prominent than seen at sonography with minimal intrahepatic dilatation of the central radicles. Biliary tree is 7 mm in diameter in the head of the pancreas. There is some suggestion of a duct sto ne in the head of the pancreas. Duct stones can be occult as well. Symmetric renal function is seen with no hydronephrosis or suspicious renal mass. No pyelonephritis o r acute parenchymal process. No bladder wall thickening or mass. Patient has a significantly enlarged prostate gland. The superior capsular margin of the prostate projects into the bladder base. No adre nal abnormalities. Large stool volume is present filling but not dilating the colon. No acute GI process seen. No free air, free fluid or inflammatory stranding. No mass or bulky lymphadenopathy. Patient has letty ateral fat filled inguinal hernias. Disc and bone degenerative changes are present. No pathologic bone process seen. Patient has very dense calcifications of the arterial tree. No acute arterial finding seen. IMPRESSION: Gallbladder is densely packed with gallstones. Gallbladder wall does appear slightly abbi matous. Biliary tree appears mildly dilated by CT criteria and there is suspicion for duct stone. Correlation is needed with any biliary obstructive findings. No metastatic lesions or aggressive liver parenchymal process seen.
[2021-09-04] MEDS ORDERED: PIPERACIL/TAZO 3.375 GM VIAL IV ONE (14:09)
[2021-09-04] MEDS ORDERED: NA CHLORIDE 0.9% 100 ML ONE (14:11)
--- NOTE | 2021-09-04 14:50 | ER ---
Nurse's Notes [facility] Name: Gil Thao Age: 85 yrs Sex: Male : 1935 Arrival Date: 09/04/2021 Time: 11:50 Bed 4 Private MD: Taz Oates R Diagnosis: Calculus of gallbladder and bile duct without cholecystitis with obstruction Presentation: 09/04 11:58 Chief complaint: Patient states: Sent in by Dr. Oates for elevated liver enzymes and ll1 gall stones. No N//V/D of pain. No fevers. Coronavirus screen: Vaccine status: Patient reports receiving the 2nd dose of the covid vaccine. Client denies travel out of the [place] in the last 14 days. At this time, the client does not indicate any symptoms associated with coronavirus-19. Ebola Screen: Patient denies travel to an Ebola-affected area in the 21 days before illness onset. Initial Sepsis Screen: Does the patient meet any 2 criteria? No. Patient's initial sepsis screen is negative. Does the patient have a suspected source of infection? Yes: Acute abdominal pain. Risk Assessment: Do you want to hurt yourself or someone else? Patient reports no desire to harm self or others. Onset of symptoms is unknown. 11:58 Method Of Arrival: Ambulatory ll1 11:58 Acuity: JONY 3 ll1 Historical: - Allergies: 11:52 No Known Allergies; ll1 - PMHx: 11:52 Myocardial infarction; Hypertension; Diabetes - IDDM; CVA; seasonal allergies; ll1 - Immunization history:: Adult Immunizations up to date, Client reports receiving the 2nd dose of the Covid vaccine, Flu vaccine is up to date. - Social history:: Smoking status: Patient denies any tobacco usage or history of. - Family history:: not pertinent. - Hospitalizations: : No recent hospitalization is reported. Screenin:55 Abuse screen: Denies threats or abuse. Nutritional screening: No deficits noted. tw2 Tuberculosis screening: No symptoms or risk factors identified. Fall Risk Secondary diagnosis (15 points) impaired mobility. Assessment: 11:55 General: Appears in no apparent distress. well groomed, Behavior is calm, cooperative, tw2 appropriate for age. Pain: Denies pain. Neuro: Level of Consciousness is awake, alert, obeys commands, Oriented to person, place, time, situation. Cardiovascular: Patient's skin is warm and dry. Respiratory: Airway is patent Respiratory effort is even, unlabored, Respiratory pattern is regular, symmetrical. GI: No signs and/or symptoms were reported involving the gastrointestinal system. Abdomen is round non-distended. EENT: Reports "hard of hearing and i wear hearing aids". Musculoskeletal: Range of motion: intact in all extremities. 11:56 Reassessment: provider at bedside at this time. tw2 12:55 Reassessment: Patient appears in no apparent distress at this time. No changes from tw2 previously documented assessment. Patient and/or family updated on plan of care and expected duration. Pain level reassessed. Patient is alert, oriented x 3, equal unlabored respirations, skin warm/dry/pink. 14:21 Reassessment: Patient appears in no apparent distress at this time. No changes from tw2 previously documented assessment. Patient and/or family updated on plan of care and expected duration. Pain level reassessed. Patient is alert, oriented x 3, equal unlabored respirations, skin warm/dry/pink. 16:46 Reassessment: Patient appears in no apparent distress at this time. Patient and/or tw2 family updated on plan of care and expected duration. Pain level reassessed. Patient is alert, oriented x 3, equal unlabored respirations, skin warm/dry/pink. pt back from imaging at this time. spouse at bedside at this time. Vital Signs: 11:58 Weight 65.77 kg; Height 5 ft. 8 in. (172.72 cm); Pain 0/10; ll1 12:01 BP 183 / 60; Pulse 60; Resp 12; Temp 97.1; Pulse Ox 100% ; cs9 12:55 BP 152 / 52; Pulse 59; Resp 12; Pulse Ox 99% on R/A; tw2 14:20 BP 173 / 69; Pulse 57; Resp 18; Pulse Ox 97% on R/A; tw2 16:45 BP 145 / 58; Pulse 55; Resp 17; Pulse Ox 100% on R/A; tw2 17:30 BP 163 / 53; Pulse 53; Resp 17; Pulse Ox 100% on R/A; tw2 18:33 BP 151 / 56; Pulse 48; Resp 17; Pulse Ox 97% on R/A; tw2 11:58 Body Mass Index 22.05 (65.77 kg, 172.72 cm) ll1 ED Course: 11:50 Patient arrived in ED. as 11:50 Taz Oates MD is Private Physician. as 11:52 Arm band placed on Patient placed in an exam room, on a stretcher. ll1 11:53 Leno Pace MD is Attending Physician. rn 11:53 Marilee Best RN is Primary Nurse. tw2 11:55 Bed in low position. Call light in reach. Pulse ox on. NIBP on. tw2 11:59 Triage completed. ll1 12:47 US Abdomen Limited In Process Unspecified. EDMS 12:47 Basic Metabolic Panel Sent. kv1 12:47 CBC with Diff Sent. kv1 12:47 SARS-COV-2 RT PCR (Document "Date of Onset" if Symptomatic) Sent. mh5 12:47 Hepatic Function Sent. kv1 12:47 Lipase Sent. kv1 12:48 Initial lab(s) drawn, by ar, sent to lab. COVID swab sent to lab. Inserted saline lock: kv1 20 gauge in right antecubital area, using aseptic technique. 13:32 CT Abd/Pelvis - IV Contrast Only In Process Unspecified. EDMS 14:49 Samir Azul is Hospitalizing Provider. rn 16:11 Cholangiogram In Process Unspecified. EDMS 17:35 attempted to initiate a transfer with Lb Askew from the [facility] Transfer Center/ patient's family is requesting us to transfer the patient to [facility]. 17:37 initiated a transfer with Silas Green from the [facility] transfer center. 17:[address] Tanner the general surgeon repairer engine production for [facility] with Dr. Sanjeev carlisle for patient transfer consultation. 17:50 administrative approval given by Silas Green/ patient has been accepted to [facility] [id number] / Dr. Tanner has accepted the patient in transfer/ report to be called to [phone]. 19:27 No provider procedures requiring assistance completed. Patient transferred, IV remains as6 in place. Administered Medications: 14:19 Drug: Zosyn (piperacillin-tazobactam) 3.375 grams Route: IVPB; Infused Over: 60 mins; tw2 Site: right antecubital; 16:51 Follow up: Response: No adverse reaction; IV Status: Completed infusion; IV Intake: tw2 100ml Intake: 16:51 IV: 100ml; Total: 100ml. tw2 Outcome: 14:49 Decision to Hospitalize by Provider. rn 17:50 ER care complete, transfer ordered by . rn 19:27 Transferred by ground EMS to [facility], Transfer form as6 completed. 19:27 Condition: stable 19:28 Patient left the ED. as6 Signatures: Dispatcher [employer] Didi Garza Roman, MD MD rn Wise, Tara RN RN tw2 Mary Mcallister [facility] Denisha Isaac Lynsay RN RN 1 Genny Azul 9 Dev Ma RN RN as6 Diogo Chandra kv1 Corrections: (The following items were deleted from the chart) 12:56 12:48 Initial lab(s) drawn, by me, sent to lab. COVID swab sent to lab. kv1 tw2
--- NOTE | 2021-09-04 14:51 | EDPHYS ---
Physician Documentation [facility] Name: Gil Thao Age: 85 yrs Sex: Male : 1935 Arrival Date: 09/04/2021 Time: 11:50 Bed 4 Private MD: Taz Oaets R ED Physician Leno Pace HPI: 09/04 12:03 This 85 yrs old Male presents to ER via Ambulatory with complaints of rn Abnormal Lab Results, Gallstones. 12:03 Pt sent here for evaluation of elevated liver enzymes and gallstones on ultrasound a rn couple of days ago. No fever. No abd pain. Reports a few episodes of abd pain when eating, but not recent. No vomiting. . Onset: The symptoms/episode began/occurred at an unknown time. Severity of symptoms: At their worst the symptoms were very mild in the emergency department the symptoms are unchanged. The patient has experienced similar episodes in the past. The patient has been recently seen by a physician:. Historical: - Allergies: 11:52 No Known Allergies; ll1 - PMHx: 11:52 Myocardial infarction; Hypertension; Diabetes - IDDM; CVA; seasonal allergies; ll1 - Immunization history:: Adult Immunizations up to date, Client reports receiving the 2nd dose of the Covid vaccine, Flu vaccine is up to date. - Social history:: Smoking status: Patient denies any tobacco usage or history of. - Family history:: not pertinent. - Hospitalizations: : No recent hospitalization is reported. ROS: 12:03 Constitutional: Negative for fever, chills, and weight loss, Eyes: Negative for injury, rn pain, redness, and discharge, Neck: Negative for injury, pain, and swelling, Cardiovascular: Negative for chest pain, palpitations, and edema, Respiratory: Negative for shortness of breath, cough, wheezing, and pleuritic chest pain, Abdomen/GI: Negative for abdominal pain, nausea, vomiting, diarrhea, and constipation, Back: Negative for injury and pain, : Negative for injury, bleeding, discharge, and swelling, MS/Extremity: Negative for injury and deformity, Skin: Negative for injury, rash, and discoloration, Neuro: Negative for headache, weakness, numbness, tingling, and seizure. Exam: 12:03 Constitutional: This is a well developed, well nourished patient who is awake, alert, rn and in no acute distress. Ambulatory to room without assistance or difficulty. Head/Face: Normocephalic, atraumatic. Eyes: Periorbital areas with no swelling, redness, or edema. Cardiovascular: Regular rate and rhythm. No pulse deficits. Respiratory: No increased work of breathing, no retractions or nasal flaring. Abdomen/GI: Soft, non-tender, neg jaffe Skin: Warm, dry MS/ Extremity: Pulses equal, no cyanosis. Neuro: Awake and alert, GCS 15 Vital Signs: 11:58 Weight 65.77 kg; Height 5 ft. 8 in. (172.72 cm); Pain 0/10; ll1 12:01 BP 183 / 60; Pulse 60; Resp 12; Temp 97.1; Pulse Ox 100% ; cs9 12:55 BP 152 / 52; Pulse 59; Resp 12; Pulse Ox 99% on R/A; tw2 14:20 BP 173 / 69; Pulse 57; Resp 18; Pulse Ox 97% on R/A; tw2 16:45 BP 145 / 58; Pulse 55; Resp 17; Pulse Ox 100% on R/A; tw2 17:30 BP 163 / 53; Pulse 53; Resp 17; Pulse Ox 100% on R/A; tw2 18:33 BP 151 / 56; Pulse 48; Resp 17; Pulse Ox 97% on R/A; tw2 11:58 Body Mass Index 22.05 (65.77 kg, 172.72 cm) ll1 MDM: 11:53 Patient medically screened. rn 14:47 Differential Diagnosis cholelithiasis, choledocholithiasis, cholecystitis. Data rn reviewed: vital signs, nurses notes, lab test result(s), radiologic studies, CT scan, ultrasound, and as a result, I will admit patient. Counseling: I had a detailed discussion with the patient and/or guardian regarding: the historical points, exam findings, and any diagnostic results supporting the discharge/admit diagnosis, lab results, radiology results, the need for further work-up and treatment in the hospital. Admission orders: after a detailed discussion of the patient's condition and case, the admit orders are written by me. ED course: Pt still pain free and benign abd exam. U/S shows cholelithiasis without cholecystitis. CT shows mild edema of the gallbladder wall and mild prominence of the biliary system with possible choledocholithiasis. Patient has seen Dr. Mancilla in the past. Will admit to hospitalist service with GI consult.. 15:14 ED course: Dr Azul contacting Dr. Mancilla to get this done before weekend, Dr. Macnilla rn is district operations manager today. . 17:31 ED course: Patient back from MRCP after patient was admitted. MRCP shows multiple stone rn choledocholithiasis. Dr. Mancilla was contacted by hospitalist and now Dr. Mancilla after admission requests transfer because it sounds too complicated. We have initiated transfer to [facility] per patient request after initially started with [facility]. . 17:48 ED course: Pt accepted for transfer to [facility] by general surgery, Dr. Tanner. rn 12 12:02 Order name: Basic Metabolic Panel; Complete Time: 13:32 rn 09/04 12:02 Order name: CBC with Diff; Complete Time: 13:32 rn 09/04 12:02 Order name: Hepatic Function; Complete Time: 13:32 rn 09/04 12:02 Order name: Lipase; Complete Time: 13:32 rn 09/04 12:02 Order name: SARS-COV-2 RT PCR (Document "Date of Onset" if Symptomatic); Complete Time: rn 13:32 09/04 17:11 Order name: Glucose, Ancillary Testing; Complete Time: 17:46 EDMS 09/04 12:02 Order name: IV Saline Lock; Complete Time: 12:47 rn 09/04 12:02 Order name: Labs collected and sent; Complete Time: 12:48 rn 09/04 12:02 Order name: US Abdomen Limited; Complete Time: 13:32 rn 09/04 12:02 Order name: CT Abd/Pelvis - IV Contrast Only; Complete Time: 14:01 rn 09/04 15:00 Order name: Cholangiogram; Complete Time: 16:54 EDMS Administered Medications: 14:19 Drug: Zosyn (piperacillin-tazobactam) 3.375 grams Route: IVPB; Infused Over: 60 mins; tw2 Site: right antecubital; 16:51 Follow up: Response: No adverse reaction; IV Status: Completed infusion; IV Intake: tw2 100ml Disposition Summary: 09/04/21 17:50 Transfer Ordered Transfer Location: [facility] rn Reason: Higher level of care rn Condition: Stable(09/04/21 17:50) rn Problem: new(09/04/21 17:50) rn Symptoms: have improved(09/04/21 17:50) rn Accepting Physician: Dr. Tanner(09/04/21 19:28) as6 Diagnosis - Calculus of gallbladder and bile duct without cholecystitis with rn obstruction(09/04/21 17:50) Forms: - Medication Reconciliation Form rn - SBAR form rn Signatures: Dispatcher [employer] EDMS Leno Pace MD MD rn Wise, Tara RN RN tw2 Dread Doherty RN RN ll1 Dev Ma, RN RN as6 Corrections: (The following items were deleted from the chart) 17:49 17:31 ED course: Patient back from MRCP after patient was admitted. MRCP shows multiple rn stone choledocholithiasis. Dr. Mancilla was contacted by hospitalist and now Dr. Mancilla after admission requests transfer because it sounds too complicated. We have initiated transfer to [facility] for another GI doctor.. rn 17:49 14:49 Inpatient Admission rn rn 17:49 14:49 Samir Azul rn rn 17:49 14:49 Telemetry/MedSurg (Inpatient) rn rn 17:49 14:49 Stable rn rn 17:49 14:49 new rn rn 17:49 14:49 are unchanged rn rn 17:49 14:49 Standard rn rn 17:49 14:49 rn rn 17:49 14:49 Calculus of gallbladder and bile duct without cholecystitis with obstruction rn rn 18:06 17:50 Dr. Bella rn rn 18:07 17:31 ED course: Patient back from MRCP after patient was admitted. MRCP shows multiple rn stone choledocholithiasis. Dr. Mancilla was contacted by hospitalist and now Dr. Mancilla after admission requests transfer because it sounds too complicated. We have initiated transfer to [facility] per patient request.. rn 18:07 17:48 ED course: Pt accepted for transfer to [facility] by general surgery, Dr. mo Bella. rn 19:28 18:06 Dr. Tanner rn as6
--- NOTE | 2021-09-04 16:52 | RAD REPORT ---
EXAM DESCRIPTION: MRI - Cholangiogram - 09/04/2021 4:34 pm CLINICAL HISTORY: Abnormal LFTs, abnormal ultrasound and CT studies COMPARISON: CT study September 04, gallbladder ultrasound September 04 TECHNIQUE: Axial and coronal heavily T2 weighted sequences were obtained. Coronal T2 HASTE fat satur ation static and coronal multiplane reconstruction imaging generated and reviewed. Horizontal and favio tical axis rotational views obtained using maximum intensity projection (MIP) protocol. FINDINGS: Coronal and axial source imaging shows no liver parenchymal lesion. No portal vein abnorma lity seen. Gallbladder wall appears slightly thickened at MRI imaging as well. No pericholecystic flu id identified. Intrahepatic biliary tree is mildly prominent. No pancreatic parenchymal abnormality. Spleen, pancreas, kidneys and adrenal glands show no suspiciou s findings. No bowel abnormality seen. Extrahepatic biliary tree measures 7-8 mm. Exam has motion degradation artifact affecting the biliary tree. There are numerous sub centimeter filling defects in the biliary tree. On review of all images , these are favored to be true intraluminal abnormalities relevant solely motion artifact. No abnormal pancreatic duct dilatation. IMPRESSION: Motion degraded study showing mild extrahepatic biliary tree dilatation of 7-8 mm and mu lti stone choledocholithiasis.
[2021-09-04 19:43] VITALS: TEMP 97.1
[2021-09-04 19:52] VITALS: BP 151/56; O2SAT 97
== END 2021-09-04 19:28 | disposition short-term general hospital (02) ==
LOC: ER 11:48
DX: K80.70 Calculus of gallbladder and bile duct without cholecystitis without obstruction (principal); I25.2 Old myocardial infarction; I10 Essential (primary) hypertension; E11.9 Type 2 diabetes mellitus without complications; Z20.822 Contact with and (suspected) exposure to COVID-19
CPT/HCPCS: 96365; 85025; 80048; 36415; 82947; 80076; 83690; 74177; 74181; 76705; 99285; 96366; U0003; Q9967; J2543

== ENCOUNTER 2021-12-01 15:55 | Emergency (ER) | payer OTHER ==
--- OUTSIDE RECORDS SUMMARY | 2021-12-01 15:58 | XMS REPORT | Continuity of Care Document ---
:1935 Author Organization [facility] t Address [address] [place] [address] [address]. [address] [place] [address] Care Team Providers Name Role Phone PCP, DOES NOT HAVE A Primary Care Physician Unavailable Doctor Unassigned, Name Attending Clinician Unavailable Service/Gensurreji, C Attending Clinician Unavailable Person MD Attending Clinician Jorge Luis VIDES Attending Clinician Unavailable Jorge Luis VIDES Admitting Clinician Unavailable Payers Payer Name Policy Type Policy Number Effective Date Expiration Date S ource Problems Condition Condition Condition Status Onset Resolution Last Treating Co mments Source Name Details Category Date Date Treatment Clinician Date Choledocho Choledocho Disease Active 2020-10 U marisela lithiasis lithiasis 11-05 ity of 00:00: [address] Allergies, Adverse Reactions, Alerts Allergy Allergy Status Severity Reaction(s) Onset Inactive Treating Comm ents Source Name Type Date Date Clinician NO KNOWN Drug Active Univers ALLERGIE Class ity of S [facility] Social History Social Habit Start Date Stop Date Quantity Comments Source Exposure to Not sure [facility] SARS-CoV-2 (event) Medica l Branch Tobacco use and 2021-09-04 2021-09-04 Never used [facility] exposure 00:00:00 00:00:00 [facility] Sex Ass[birth year] [facility] 00:00:00 00:00:00 [facility] Smoking Status Start Date Stop Date Source Former smoker 2021-09-04 00:00:00 2021-09-04 00:00:00 [facility] [place] Medications Ordered Filled Start Stop Current Ordering Indication Dosage Frequency Signature Comments Components Source Medication Medication Date Date Medication? Clinician (SIG) Name Name glyBURIDE-m 2020-10 Yes 1{tbl} Take 1 Un [place] etformin 2-21 tablet by ity of 5-500 mg 10:06: mouth 2 [place] tablet 46 (two) Medical times Branch daily with meals. glyBURIDE-m 2020-10 Yes 1{tbl} Take 1 Un [place] etformin 2-21 tablet by ity of 5-500 mg 10:06: mouth 2 [place] tablet 46 (two) Medical times Branch daily with meals. glyBURIDE-m 2020-10 Yes 1{tbl} Take 1 Un [place] etformin 2-21 tablet by ity of 5-500 mg 10:06: mouth 2 [place] tablet 46 (two) Medical times Branch daily with meals. pantoprazol 2020-10 Yes [id number] 40mg Take 1 Univers e 40 mg EC 2-14 tablet by ity of tablet 00:00: mouth [place] 00 daily. Medical Branch tamsulosin 2020-10 Yes [id number] .4mg Take 1 Univers 0.4 mg 24 2-14 capsule by ity of hr capsule 00:00: mouth [place] 00 daily. Medical Branch pantoprazol 2020-10 Yes [id number] 40mg Take 1 Univers e 40 mg EC 2-14 tablet by ity of tablet 00:00: mouth [place] 00 daily. Medical Branch tamsulosin 2020-10 Yes [id number] .4mg Take 1 Univers 0.4 mg 24 2-14 capsule by ity of hr capsule 00:00: mouth [place] 00 daily. Medical Branch pantoprazol 2020-10 Yes [id number] 40mg Take 1 Univers e 40 mg EC 2-14 tablet by ity of tablet 00:00: mouth [place] 00 daily. Medical Branch tamsulosin 2020-10 Yes [id number] .4mg Take 1 Univers 0.4 mg 24 2-14 capsule by ity of hr capsule 00:00: mouth [place] 00 daily. Medical Branch docusate 2020-10 Yes [id number] 100mg Take 1 U nivers 100 mg 2-13 capsule by ity of capsule 00:00: mouth 2 [place] 00 (two) Medical times Branch daily. celecoxib 2020-10 Yes [id number] 100mg Take 1 Univers 100 mg 2-13 capsule by ity of capsule 00:00: mouth 2 [place] 00 (two) Medical times Branch daily with meals. amoxicillin 2020-10 Yes [id number] 1{tbl} Take 1 Univers -clavulanat 2-13 tablet by ity of e 00:00: mouth 2 [place] (AUGMENTIN) 00 (two) Medical 875-125 mg times Branch per tablet daily. docusate 2020-10 Yes [id number] 100mg Take 1 U nivers 100 mg 2-13 capsule by ity of capsule 00:00: mouth 2 00 (two) Medical times Branch daily. celecoxib 2020-10 Yes [id number] 100mg Take 1 Univers 100 mg 2-13 capsule by ity of capsule 00:00: mouth 2 [place] 00 (two) Medical times Branch daily with meals. amoxicillin 2020-10 Yes [id number] 1{tbl} Take 1 Univers -clavulanat 2-13 tablet by ity of e 00:00: mouth 2 [place] (AUGMENTIN) 00 (two) Medical 875-125 mg times Branch per tablet daily. docusate 2020-10 Yes [id number] 100mg Take 1 U nivers 100 mg 2-13 capsule by ity of capsule 00:00: mouth 2 [place] 00 (two) Medical times Branch daily. celecoxib 2020-10 Yes [id number] 100mg Take 1 Univers 100 mg 2-13 capsule by ity of capsule 00:00: mouth 2 [place] (two) Medical times Branch daily with meals. amoxicillin 2020-10 Yes [id number] 1{tbl} Take 1 Univers -clavulanat 2-13 tablet by ity of e 00:00: mouth 2 [place] (AUGMENTIN) 00 (two) Medical 875-125 mg times Branch per tablet daily. acetaminoph 2020-10- Yes [id number] 650mg Take 2 Univers en 325 mg 2-13 12-14 tablets by ity of tablet 00:00: 05:59 mouth [place] 00 :00 every 6 Medical (six) Branch hours as needed for Pain (scale 1-3). acetaminoph 2020-10- Yes [id number] 650mg Take 2 Univers en 325 mg 2-13 12-14 tablets by ity of tablet 00:00: 05:59 mouth [place] 00 :00 every 6 Medical (six) Branch hours as needed for Pain (scale 1-3). acetaminoph 2020-10- Yes [id number] 650mg Take 2 Univers en 325 mg 2-13 12-14 tablets by ity of tablet 00:00: 05:59 mouth [place] 00 :00 every 6 Medical (six) Branch hours as needed for Pain (scale 1-3). Vital Signs Vital Name Observation Time Observation Value Comments Source Systolic blood 2021-09-22 16:07:00 158 mm[Hg] Univer sity of pressure [facility] Diastolic blood 2021-09-22 16:07:00 58 mm[Hg] Unive rsity of [facility] Heart rate 2021-09-22 16:07:00 58 /min [facility] Body temperature 2021-09-22 16:06:00 35.78 [facility] Res[facility] rate 2021-09-22 16:06:00 22 /min [facility] Body height 2021-09-22 16:06:00 172.7 cm [facility] Body weight 2021-09-22 16:06:00 65.772 kg [facility] BMI 2021-09-22 16:06:00 22.05 kg/m2 [facility] Procedures Procedure Date / Time Performed Performing Clinician [facility] e EXTERNAL PROVIDER 2021-10-05 06:01:00 Doctor Unassigned, No Univ [facility] RECORDS Name [facility] Encounters Start End Encounter Admission Attending Care Care Encounter Source Date/Time Date/Time Type Type Clinicians Facility Department ID 2021-10-05 2021-10-05 Orders Doctor LOPEZ [id number] Univers 00:00:00 00:00:00 Only Unassigned, RON [id number] ity of [facility] [id number] Carlos as [id number] [facility] 009 Branch 2021-09-22 2021-09-22 Office Service/Gensurg, Surgery C UNIVERS YUMI [id number] Univers 10:00:00 10:15:00 Visit Person, Farhadjose d DOVE [id number] ity of [id number] [id number] [facility] 203 Branch 2021-09-042021-09-14 [facility] U MAHOGANY [facility] [id number] Univers 20:53:00 13:35:00 ROSIBEL mcdaniel [facility] Results This patient has no known results.
[2021-12-01 16:32] LABS: Absolute Lymphocytes (CBC) 2.2 K/uL (0.7-4.9); Hematocrit 41.9 % (39.6-49.0); Lymphocytes % 10.4 % (15.3-44.8); MPV 11.7 fL (7.6-11.3); RBC Red Blood Cell Count 4.74 M/uL (4.33-5.43)
[2021-12-01 16:34] LABS: Protime INR 1.28
--- NOTE | 2021-12-01 16:36 | RAD REPORT ---
EXAM DESCRIPTION: RAD - Chest Single View - 12/01/2021 4:23 pm CLINICAL HISTORY: hypoglycemiashortness of breath COMPARISON: Portable December 2020 TECHNIQUE: AP portable chest image was obtained 12/01/2021 4:23 pm . FINDINGS: No focal mass or consolidation identified. Mildly prominent interstitial pattern matches c omparison. Focal density medial to a cardiac lead in the right chest is believed to be summation of a nterior first and second rib and posterior ribcage. Focal scarring and nodularity were seen in this r egion on the comparison study. No acute failure or volume overload. Heart and vasculature are normal. No measurable pleural effusion and no pneumothorax. No acute bony abnormality seen. No acute aortic findings suspected. IMPRESSION: No acute cardiopulmonary process. Chronic lung parenchymal changes detailed above match the December 2020 study.
[2021-12-01 16:48] LABS: Albumin 3.8 g/dL (3.4-5.0); Bilirubin Direct 0.1 mg/dL (0-0.2); Bilirubin Total 0.3 mg/dL (0.2-1.0); Magnesium 1.9 mg/dL (1.8-2.4); Potassium 5.3 mmol/L (3.5-5.1); Protein, Total 6.9 g/dL (6.4-8.2); Troponin High Sensitivity 10.5 pg/mL (<58.9)
[2021-12-01 16:58] LABS: Blood Morphology Comment NOT SEEN (NOT SEEN); Platelet Estimate DECR
[2021-12-01 17:54] LABS: Urine Amorphous Sediment TRACE /HPF (NONE SEEN); Urine Bacteria 20-50 /HPF (NONE SEEN); Urine RBC <5 /HPF (NONE SEEN)
[2021-12-01] MEDS ORDERED: NA CHLORIDE 0.9% 250 ML ONE (17:57)
[2021-12-01 18:49] LABS: Potassium 4.1 mmol/L (3.5-5.1)
[2021-12-01] MEDS ORDERED: NA CHLORIDE 0.9% 50 ML ONE (19:01)
[2021-12-01] MEDS ORDERED: CEFTRIAXONE 1000 MG/VIAL ONE (19:01)
--- NOTE | 2021-12-01 19:37 | ER ---
Nurse's Notes [facility] Name: Gil Thao Age: 85 yrs Sex: Male : 1935 Arrival Date: 12/01/2021 Time: 16:00 Bed 27 Private MD: Diagnosis: Hypoglycemia, unspecified;UTI/ Urinary tract infection, site not specified Presentation: 12/01 16:06 Chief complaint: EMS states: hypoglycemia in the 40s this am. Pt ate lunch and also ss7 took Levemir 50units this am. No interventions from ems with bg of 40 because he was a\\T\\Ox3. Coronavirus screen: Vaccine status: Patient reports receiving the 2nd dose of the covid vaccine. Ebola Screen: No symptoms or risks identified at this time. Initial Sepsis Screen: Does the patient meet any 2 criteria? No. Patient's initial sepsis screen is negative. Does the patient have a suspected source of infection? No. Patient's initial sepsis screen is negative. Risk Assessment: Do you want to hurt yourself or someone else? Patient reports no desire to harm self or others. 16:06 Method Of Arrival: EMS: [facility] 16:06 Acuity: JONY 3 [facility] 19:42 Onset of symptoms was December 01, 2021. [facility] Triage Assessment: 16:07 General: Appears in no apparent distress. comfortable, Behavior is calm, cooperative, ss7 appropriate for age. Pain: Denies pain. EENT: No deficits noted. Neuro: Level of Consciousness is awake, alert, obeys commands, Oriented to person, place, time, situation, Jacquard Loom Fixer are equal bilaterally Moves all extremities. Facial symmetry appears normal. Cardiovascular: Heart tones S1 S2. Respiratory: Breath sounds are clear bilaterally. GI: No deficits noted. : No deficits noted. Derm: No deficits noted. Musculoskeletal: No deficits noted. Historical: - Allergies: 16:07 No Known Allergies; 7 - Home Meds: 16:07 aspirin 325 mg Oral tab 1 tab once daily [Active]; glyburide-metformin 5-500 mg Oral ss7 tab 1 tab four times a day [Active]; Levemir U-100 Insulin 100 unit/mL subcutaneous soln 50 unit daily for type 2 diabetes mellitus [Active]; Toprol XL 50 mg Oral Tb24 2 tabs once daily [Active]; loratadine 10 mg Oral TbDL 1 tab once daily [Active]; amlodipine 5 mg tab 1 tab twice a day [Active]; - PMHx: 16:07 CVA; Diabetes - IDDM; Hypertension; Myocardial infarction; seasonal allergies; ss7 - PSHx: 16:07 Cholecystectomy; ss7 - Immunization history:: Adult Immunizations Pneumococcal vaccine is up to date, Flu vaccine is up to date. - Social history:: Smoking status: Patient/guardian denies using tobacco, but has a distant history of tobacco abuse. Screenin:11 Abuse screen: Denies threats or abuse. Nutritional screening: No deficits noted. ss7 Tuberculosis screening: No symptoms or risk factors identified. Fall Risk IV access (20 points). Assessment: 17:07 Reassessment: Pt informed RN of "chronic high WBC count" and that he sees a "cancer [facility] doctor" for regular lab work. Also states that cancer has been ruled out. Nate Fall informed. Also holding on NS 500ml bolus due to hypoglycemia as CC. Juan David states he will reassess patient prior to administration. . Vital Signs: 16:06 BP 140 / 54; Pulse 67; Resp 20; Temp 97.8(O); Pulse Ox 99% ; Weight 64.41 kg; Height 5 7 ft. 8 in. (172.72 cm); 17:30 BP 153 / 57; Pulse 67; Resp 18; Pulse Ox 99% ; ss7 19:00 BP 167 / 60; Pulse 62; Resp 18; Pulse Ox 100% on R/A; ss7 19:30 BP 164 / 55; Pulse 62; Resp 18; Pulse Ox 100% on R/A; ss7 16:06 Body Mass Index 21.59 (64.41 kg, 172.72 cm) 7 ED Course: 16:00 Patient arrived in ED. ds1 16:03 Alcides Joseph PA is PHCP. cp 16:03 Safia Washington MD is Attending Physician. cp 16:05 Sveta Rivas, STEFAN is Primary Nurse. ss7 16:07 Triage completed. 7 16:07 Arm band placed on left wrist. ss7 16:11 Patient has correct armband on for positive identification. Bed in low position. Call [facility] light in reach. Side rails up X2. conveyor monitor on. Pulse ox on. NIBP on. Diet tray given. 16:11 No provider procedures requiring assistance completed. Inserted saline lock: 20 gauge ss7 in right antecubital area, using aseptic technique. 16:12 Basic Metabolic Panel Sent. ss7 16:13 CBC with Diff Sent. ss7 16:13 LFT's Sent. ss7 16:13 Magnesium Sent. ss7 16:13 NT PRO-BNP Sent. ss7 16:13 PT-INR Sent. ss7 16:13 Troponin HS Sent. ss7 16:23 XRAY Chest (1 view) In Process Unspecified. EDMS 17:04 COVID-19 SARS RT PCR (Document "Date of Onset" if Symptomatic) Sent. ss7 17:39 Urine Microscopic Only Sent. ss7 17:39 Urine Microscopic Only Sent. ss7 18:35 Procalcitonin Sent. ss7 18:35 BMP Sent. ss7 18:35 Urine Culture Sent. ss7 18:51 Procalcitonin Sent. ss7 19:34 Rianna Reddy MD is Referral Physician. cp 19:42 IV discontinued, intact. ss7 Administered Medications: 17:21 CANCELLED (Physician Discretion): Cefepime 1 grams IVPB at 200 ml/hr once over 30 mins; cp (mix in NS 100 mL), give after obtaining urine 17:21 CANCELLED (Physician Discretion): NS 0.9% 500 ml IV at 500 ml/hr continuous cp 17:21 CANCELLED (Physician Discretion): NS 0.9% 500 ml IV at 100 ml/hr continuous cp 17:57 Drug: NS 0.9% 250 ml Route: IV; Rate: bolus; Site: right antecubital; lr4 18:15 Follow up: Response: No adverse reaction; IV Status: Completed infusion 7 19:00 Drug: Rocephin - (cefTRIAXone) 1 grams Route: IVPB; Infused Over: 30 mins; Site: right ss7 antecubital; 19:30 Follow up: Response: No adverse reaction; IV Status: Completed infusion 7 Point of Care Testing: Blood Glucose: 16:07 Blood Glucose: 91 mg/dL; 7 Ranges: Outcome: 19:36 Discharge ordered by . cp 19:41 Discharged to home ambulatory, with family. ss7 19:41 Condition: good 19:41 Discharge instructions given to family, Instructed on discharge instructions, follow up and referral plans. Demonstrated understanding of instructions. 19:58 Patient left the ED. [facility] Signatures: Dispatcher [employer] EDUT Siena Mehta ds1 Alcides Joseph PA PA cp Smith, Shana, RN RN 7 Josie Alvarez RN RN lr4 Corrections: (The following items were deleted from the chart) 16:10 16:07 Home Meds: levemir 50 unit daily; [place] [id number] 16:10 16:07 Home Meds: hydroxyurea 500 mg Oral cap 1 cap Mon, Wed, Fri, Sat; [place] [address] 17:27 17:04 PCT+C.LAB.BRZ drawn and sent. [facility] EDUT 17: 17:04 LACTATE+C.LAB.BRZ drawn and sent. [address] 17:29 17:04 BLOOD CULTURE*+BA.LAB.BRZ drawn and sent. [address]
--- NOTE | 2021-12-01 19:37 | EDPHYS ---
Physician Documentation [facility] Name: Gil Thao Age: 85 yrs Sex: Male : 1935 Arrival Date: 12/01/2021 Time: 16:00 Bed 27 Private MD: ED Physician Safia Washington HPI: 12/01 16:15 This 85 yrs old Male presents to ER via EMS with complaints of Low Blood Sugar. cp 16:15 The patient or guardian reports hypoglycemia, that was potentially precipitated by no cp particular event. 16:15 Onset: The symptoms/episode began/occurred today. cp 16:15 Current symptoms: In the emergency department the patient's symptoms are unchanged from cp the initial presentation. 16:15 EMS reports being called to patient's home for low blood sugar this afternoon. Patient cp reports taking 50 units of Levemir this morning. Historical: - Allergies: 16:07 No Known Allergies; ss7 - Home Meds: 16:07 aspirin 325 mg Oral tab 1 tab once daily [Active]; glyburide-metformin 5-500 mg Oral ss7 tab 1 tab four times a day [Active]; Levemir U-100 Insulin 100 unit/mL subcutaneous soln 50 unit daily for type 2 diabetes mellitus [Active]; Toprol XL 50 mg Oral Tb24 2 tabs once daily [Active]; loratadine 10 mg Oral TbDL 1 tab once daily [Active]; amlodipine 5 mg tab 1 tab twice a day [Active]; - PMHx: 16:07 CVA; Diabetes - IDDM; Hypertension; Myocardial infarction; seasonal allergies; ss7 - PSHx: 16:07 Cholecystectomy; ss7 - Immunization history:: Adult Immunizations Pneumococcal vaccine is up to date, Flu vaccine is up to date. - Social history:: Smoking status: Patient/guardian denies using tobacco, but has a distant history of tobacco abuse. ROS: 16:19 Constitutional: Negative for body aches, chills, fever, poor PO intake. cp 16:19 Cardiovascular: Negative for chest pain, palpitations. 16:19 Respiratory: Negative for cough, shortness of breath, wheezing. 16:19 Abdomen/GI: Negative for abdominal pain, nausea, vomiting, and diarrhea. Exam: 16:23 Constitutional: The patient appears in no acute distress, alert, awake, comfortable, cp non-diaphoretic, non-toxic, well developed, well nourished. 16:23 Head/Face: Normocephalic, atraumatic. cp 16:23 Eyes: Periorbital structures: appear normal, Pupils: equal, round, and reactive to light and accomodation, Extraocular movements: intact throughout, Conjunctiva: normal, no exudate, no injection, Sclera: no appreciated abnormality, Lids and lashes: appear normal, bilaterally. 16:23 ENT: External ear(s): are unremarkable, Nose: is normal, Mouth: Lips: moist, Oral mucosa: pink and intact, moist, Posterior pharynx: Airway: no evidence of obstruction, patent, erythema, is not appreciated, exudate, is not appreciated. 16:23 Neck: ROM/movement: is normal, is supple, without pain, no range of motions limitations, no meningismus. 16:23 Chest/axilla: Inspection: normal, Palpation: is normal, no crepitus, no tenderness. 16:23 Cardiovascular: Rate: normal, Rhythm: regular, Edema: is not appreciated, JVD: is not appreciated. 16:23 Respiratory: the patient does not display signs of respiratory distress, Respirations: normal, no use of accessory muscles, no retractions, labored breathing, is not present, Breath sounds: are clear throughout, no decreased breath sounds, no stridor, no wheezing. 16:23 Abdomen/GI: Inspection: abdomen appears normal, Bowel sounds: active, all quadrants, Palpation: abdomen is soft and non-tender, in all quadrants. 16:23 Back: pain, is absent, ROM is normal. 16:23 Skin: cellulitis, is not appreciated, no rash present. 16:23 Neuro: Orientation: to person, place \\T\\ time. Mentation: is normal, Cerebellar function: is grossly normal, Motor: moves all fours, strength is normal, Sensation: is normal. 17:12 ECG was reviewed by the Attending Physician. cp Vital Signs: 16:06 BP 140 / 54; Pulse 67; Resp 20; Temp 97.8(O); Pulse Ox 99% ; Weight 64.41 kg; Height 5 ss7 ft. 8 in. (172.72 cm); 17:30 BP 153 / 57; Pulse 67; Resp 18; Pulse Ox 99% ; ss7 19:00 BP 167 / 60; Pulse 62; Resp 18; Pulse Ox 100% on R/A; ss7 19:30 BP 164 / 55; Pulse 62; Resp 18; Pulse Ox 100% on R/A; 7 16:06 Body Mass Index 21.59 (64.41 kg, 172.72 cm) 7 MDM: 16:18 Patient medically screened. 17:23 Physician consultation: Rianna Cruz MD was called at 17:20, was contacted at 17:20, regarding patient's condition, elevated WBC. Dr Siddiqui reports patient with history of Leukemia, recently discontinued Hydrea due to anemia. 19:35 Data reviewed: vital signs, nurses notes, lab test result(s), EKG, radiologic studies, cp plain films, I have discussed the patient's presentation/case with the attending Emergency Department Physician; and as a result, I will discharge patient. 19:35 Test interpretation: by ED physician or midlevel provider: ECG, plain radiologic cp studies. Counseling: I had a detailed discussion with the patient and/or guardian regarding: the historical points, exam findings, and any diagnostic results supporting the discharge/admit diagnosis, lab results, radiology results, the need for outpatient follow up, an sliver lapper, to return to the emergency department if symptoms worsen or persist or if there are any questions or concerns that arise at home. 12/01 16:04 Order name: Basic Metabolic Panel; Complete Time: 17:06 cp 12/01 17:06 Interpretation: Normal except: K 5.3; CL 111; GLUC 110; BUN 23; CRE 1.37; GFR 50. cp 12/01 16:04 Order name: CBC with Diff; Complete Time: 17:06 cp 03 16:36 Interpretation: Normal except: WBC 21.50; HGB 13.5; MCV 88.4; PLT 96; RDW 15.7; MPV cp 11.7; RIVAS% 75.0; LYM% 10.4; MN% 13.4; NEUT A 16.1; MNA 2.9. 12/01 16:04 Order name: LFT's; Complete Time: 17:06 cp 12/01 17:07 Interpretation: Normal except: AST 12. cp 12/01 16:04 Order name: Magnesium; Complete Time: 17:06 cp 12/01 16:04 Order name: NT PRO-BNP; Complete Time: 17:06 cp 12/01 17:07 Interpretation: Abnormal: NT PRO-BNP 3860. cp 12/01 16:04 Order name: PT-INR; Complete Time: 16:36 cp 12/01 17:49 Interpretation: PT 14.7; Reviewed. cp 12/01 16:04 Order name: Troponin HS; Complete Time: 17:06 cp 12/01 18:09 Interpretation: Reviewed. cp 12/01 16:35 Order name: Urine Microscopic Only cp 12/01 16:36 Order name: Urine Microscopic Only; Complete Time: 18:08 EDMS 12/01 18:10 Interpretation: Normal except: UBACT 20-50. cp 12/01 16:39 Order name: Blood Culture Adult (2) cp 12/01 16:41 Order name: COVID-19 SARS RT PCR (Document "Date of Onset" if Symptomatic); Complete cp Time: 18:08 12/01 16:45 Order name: Glucose, Ancillary Testing; Complete Time: 17:06 EDSC 12/01 16:04 Order name: XRAY Chest (1 view); Complete Time: 17:06 cp 12/01 16:04 Order name: EKG; Complete Time: 16:04 cp 12/01 16:04 Order name: Cardiac monitoring; Complete Time: 16:12 cp 12/01 16:04 Order name: EKG - Nurse/Tech; Complete Time: 17:39 cp 12/01 16:04 Order name: IV Saline Lock; Complete Time: 16:12 cp 12/01 16:04 Order name: Labs collected and sent; Complete Time: 16:12 cp 12/01 16:04 Order name: O2 Per Protocol; Complete Time: 16:12 cp 12/01 16:57 Order name: Manual Differential; Complete Time: 17:06 EDMS 12/01 18:08 Interpretation: Normal except: MONO 13. cp 12/01 17:54 Order name: Urine Culture EDMS 12/01 18:17 Order name: BMP; Complete Time: 19:33 cp 12/01 19:33 Interpretation: Normal except: CL 109; GLUC 166; BUN 23; GFR 59. cp 12/01 18:17 Order name: Procalcitonin; Complete Time: 19:33 cp 12/01 16:04 Order name: O2 Sat Monitoring; Complete Time: 16:12 cp 12/01 16:04 Order name: Accucheck Blood Glucose; Complete Time: 16:12 cp 12/01 16:35 Order name: Urine Dipstick-Ancillary (obtain specimen); Complete Time: 17:39 cp EC:12 Rate is 67 beats/min. Rhythm is regular. VT interval is normal. QRS interval is cp prolonged at 110 msec. QT interval is normal. Interpreted by me. Reviewed by me. Administered Medications: 17:21 CANCELLED (Physician Discretion): Cefepime 1 grams IVPB at 200 ml/hr once over 30 mins; cp (mix in NS 100 mL), give after obtaining urine 17:21 CANCELLED (Physician Discretion): NS 0.9% 500 ml IV at 500 ml/hr continuous cp 17:21 CANCELLED (Physician Discretion): NS 0.9% 500 ml IV at 100 ml/hr continuous cp 17:57 Drug: NS 0.9% 250 ml Route: IV; Rate: bolus; Site: right antecubital; lr4 18:15 Follow up: Response: No adverse reaction; IV Status: Completed infusion ss7 19:00 Drug: Rocephin - (cefTRIAXone) 1 grams Route: IVPB; Infused Over: 30 mins; Site: right ss7 antecubital; 19:30 Follow up: Response: No adverse reaction; IV Status: Completed infusion ss7 Point of Care Testing: Blood Glucose: 16:07 Blood Glucose: 91 mg/dL; ss7 Ranges: Critical Glucose Levels:Adult <50 mg/dl or >400 mg/dl <40 mg/dl or >180 mg/dl Disposition Summary: 12/01/21 19:36 Discharge Ordered Location: Home cp Problem: new cp Symptoms: have improved cp Condition: Stable cp Diagnosis - Hypoglycemia, unspecified cp - UTI/ Urinary tract infection, site not specified cp Followup: cp - With: Rianna Reddy MD - When: as scheduled to recheck elevated WBC - Reason: Family physician to discuss diabetes mellitus Discharge Instructions: - Discharge Summary Sheet cp - Hypoglycemia cp - Urinary Tract Infection, Adult cp - Blood Glucose Monitoring, Adult cp Forms: - Medication Reconciliation Form cp - Thank You Letter cp - Antibiotic Education cp - Prescription Opioid Use cp Prescriptions: - Cipro 250 mg Oral Tablet - take 1 tablet by ORAL route every 12 hours for 7 days; 14 tablet; Refills: 0, cp Product Selection Permitted Signatures: Dispatcher [employer] EDMS Alcides Joseph PA PA cp Sveta Rivas RN RN ss7 Josie Alvarez RN RN lr4 Corrections: (The following items were deleted from the chart) 16:10 16:07 Home Meds: levemir 50 unit daily; [facility] 16:10 16:07 Home Meds: hydroxyurea 500 mg Oral cap 1 cap Mon, Wed, Fri, Sat; [place] [id number] 17:21 16:39 Cefepime 1 grams IVPB at 200 ml/hr once over 30 mins; (mix in NS 100 mL), give cp after obtaining urine ordered. cp 17:21 16:39 NS 0.9% 500 ml IV at 500 ml/hr continuous ordered. cp cp 17:21 16:40 NS 0.9% 500 ml IV at 100 ml/hr continuous ordered. cp cp 17:27 16:39 PCT+C.LAB.BRZ ordered. EDMS EDMS 17:27 16:39 LACTATE+C.LAB.BRZ ordered. EDMS EDMS 17:29 16:39 BLOOD CULTURE*+BA.LAB.BRZ ordered. EDMS EDMS 03/ 19:08 03/ 16:15 EMS reports being called to patient's home for low blood sugar this cp afternoon. cp
[2021-12-01 20:07] VITALS: TEMP 97.8
[2021-12-01 20:09] VITALS: O2SAT 100
[2021-12-01 20:10] VITALS: BP 164/55
--- NOTE | 2021-12-02 11:08 | EKG ---
Test Date: 2021-12-01 Test Time: 17:07:50 Reheater Helper: AMARA MEASUREMENT RESULTS: Intervals: Rate: 67 MA: 142 QRSD: 110 QT: 406 QTc: 429 [place]: P: 52 MA: 142 QRS: 80 T: -63 INTERPRETIVE STATEMENTS: Normal sinus rhythm Possible Inferior infarct, age undetermined Abnormal ECG Compared to ECG 12/10/2020 13:17:26 No significant changes Electronically Signed On 12-02-21 11:07:15 BUSINESS EDITOR by Curtis Heath
== END 2021-12-01 19:58 | disposition home or self-care (01) ==
LOC: ER 15:55
DX: E11.649 Type 2 diabetes mellitus with hypoglycemia without coma (principal); N39.0 Urinary tract infection, site not specified; I10 Essential (primary) hypertension; Z20.822 Contact with and (suspected) exposure to COVID-19; Z86.73 Personal history of transient ischemic attack (TIA), and cerebral infarction without residual deficits; Z79.82 Long term (current) use of aspirin; Z79.4 Long term (current) use of insulin
CPT/HCPCS: 96365; 96367; 93005; 87040 ×2; 87088; 85025; 87086; 80048 ×2; 36415; 83735; 87205 ×2; 85610; 82947; 80076; 81015; 84484; 84145; 83880; 71045; 99285; U0003; J7050

== ENCOUNTER 2022-03-31 06:28 | Day surgery (SDC) | payer OTHER ==
[2022-03-26 18:06] LABS: SARS-CoV-2 Antigen Rapid Res Negative (Negative)
[2022-03-29 07:46] LABS: Hematocrit 49.2 % (39.6-49.0); MPV 11.6 fL (7.6-11.3); RBC Red Blood Cell Count 5.67 M/uL (4.33-5.43)
[2022-03-29 07:47] LABS: Absolute Lymphocytes (CBC) 3.8 K/uL (0.7-4.9); Lymphocytes % 12.1 % (15.3-44.8)
[2022-03-29 07:52] LABS: Potassium 4.3 mmol/L (3.5-5.1)
[2022-03-29 09:51] LABS: Anisocytosis SLIGHT; Blood Morphology Comment NOTED (NOT SEEN); Hypochromasia 1+; Platelet Estimate DECR; Platelets, Giant FEW; Polychromasia SLIGHT
[2022-03-31] MEDS ORDERED: CEFAZOLIN SODIUM 1 GM/VIAL ONE (06:55)
[2022-03-31] MEDS ORDERED: propofoL 200 MG/20 ML VIAL IV ONE (07:23)
[2022-03-31] MEDS ORDERED: FENTANYL CITR 100 MCG/2 ML ONE (07:23)
[2022-03-31] MEDS ORDERED: LIDOCAINE 2% MPF 5 ML VIAL ONE (07:24)
[2022-03-31] MEDS ORDERED: dexAMETHasone 10 MG/ML VIAL ONE (07:24)
[2022-03-31] MEDS: NA CHLORIDE 0.9% 1,000 ML ONE ×2 (07:27→07:32)
[2022-03-31] MEDS ORDERED: EPHEDRINE SULF 50 MG/ML VIAL ONE (07:53)
[2022-03-31] MEDS ORDERED: ONDANSETRON 4 MG/2 ML VIAL ONE (07:56)
[2022-03-31] MEDS ORDERED: Mastisol Adhesive Liq ONE (08:28)
[2022-03-31] MEDS ORDERED: KETOROLAC 30 MG/ML INJ ONE (08:39)
[2022-03-31] MEDS ORDERED: HYDROCODONE/APAP 5/325 MG TAB PO PRN (08:46)
--- NOTE | 2022-03-31 08:54 | P.OP ---
Date of Service: 03/31/22 Preop diagnosis: Recurrent right inguinal hernia Postop diagnosis: Same Procedure performed: Repair of recurrent right inguinal hernia Surgeon: Alvaro Shore MD Branch Credit Counselor: MERARY Carmona Estimated blood loss: Minimal Specimen: Cord lipoma and hernia sac Findings: As above Anesthesia: General Complications: None Drains: None Fluids and blood products: Nonapplicable Disposition: Recovery room Operative note: Patient brought to the OR and placed in the supine position. General anesthesia begun. Patient prepped and draped in the usual sterile fashion. Marcaine 0.5% infiltrated in a field block fashion in the left groin. 15 blade used to make a 4 cm oblique incision between the pubic tubercle and the left anterior iliac superior spine. Subcutaneous tissue divided. Terry's fascia identified and divided. Aponeurosis of the external abdominal oblique muscle identified and mobilized inferiorly to expose the shelving edge. The aponeurosis was opened through the external ring. Ilioinguinal nerve retracted out of the field of dissection. Cord mobilized at the pubic tubercle. Skeletonization of the cord revealed a cord lipoma and a hernia sac. There were sutures present in the sac that were from previous repair. Lipoma and cord structures were dissected away from the cord structures. Lipoma was excised and the base tied with 2-0 chromic suture. The hernia sac had a high ligation performed with 2-0 Prolene suture ligature and freehand tie. Both structures were sent to pathology as specimen. Then, Marlex mesh plug was placed in the internal ring and secured with VersaTack stapler. Then, onlay mesh was placed on the inguinal floor and secured to the the pubic tubercle medially, conjoined tendon superiorly, shelving edge inferiorly and laterally to each other. Then cord structures and ilioinguinal nerve placed back in their anatomic location. Then, 2-0 Prolene used to close the aponeurosis. 3-0 chromic was used to close Terry's fascia. And 3-0 chromic was also used to close skin. Sterile dressing applied and patient awakened. Patient taken to recovery room in good general condition. CC: Dr. Adknis's office
[2022-03-31 11:30] VITALS: BP 142/46; TEMP 97.4; O2SAT 96
== END 2022-03-31 10:54 | disposition home or self-care (01) ==
LOC: OR 06:28
PROVIDERS: ATTEND Surgery
PROC: 0YU50JZ Supplement Right Inguinal Region with Synthetic Substitute, Open Approach (ICD-10-PCS; principal; 2022-03-31 07:30)
DX: K40.90 Unilateral inguinal hernia, without obstruction or gangrene, not specified as recurrent (principal); Z20.822 Contact with and (suspected) exposure to COVID-19
CPT/HCPCS: 85025; 80048; 36415; 82947 ×2; 88302; 87811; 49520; J2704; J3010; J7030; J2405; J0690; J1100

== ENCOUNTER 2022-06-28 20:28 | Inpatient (IN) | payer OTHER ==
--- OUTSIDE RECORDS SUMMARY | 2022-06-28 20:31 | XMS REPORT | Continuity of Care Document ---
:1935 Author Organization [facility] t Address [address] [place] [address] Care Team Providers Name Role Phone PCP, PATIENT DOES NOT HAVE A Primary Care Physician UnavailWilliam Paz Attending Clinician Unavailable Doctor Unassigned, [place] Attending Clinician Unavailable Service/[place], Surgery C Attending Clinician Unavailable Person Farhad BARRERA Attending Clinician ROSIBEL VIDES Attending Clinician Unavailable ROSIBEL VIDES Admitting Clinician Unavailable Payers Payer Name Policy Type Policy Number Effective Date Expiration Date S ource Problems Condition Condition Condition Status Onset Resolution Last Treating Co mments Source Name Details Category Date Date Treatment Clinician Date Choledocho Choledocho Disease Active 2020-10 U nivporsha lithiasis lithiasis 11-05 ity of 00:00: [address] Allergies, Adverse Reactions, Alerts Allergy Allergy Status Severity Reaction(s) Onset Inactive Treating Comm ents Source Name Type Date Date Clinician NO KNOWN Drug Active Univers ALLERGIE Class ity of S [facility] Social History Social Habit Start Date Stop Date Quantity Comments Source Exposure to Not sure [facility] SARS-CoV-2 (event) Medica l Branch Tobacco use and 2021-09-04 2021-09-04 [facility] exposure 00:00:00 00:00:00 Medical [place] Sex Ass[birth year] At [birth year] [facility] [place] 00:00:00 00:00:00 Medical Branch Smoking Status Start Date Stop Date Source Former smoker 2021-09-04 00:00:00 2021-09-04 00:00:00 [facility] Medical Branch Medications Ordered Filled Start Stop Current Ordering [...] ity of 5-500 mg 10:06: mouth 2 [place] tablet 46 (two) Medical times Branch daily with meals. pantoprazol 2020-10 Yes [id number] 40mg Take 1 Univers e 40 mg EC 2-14 tablet by ity of tablet 00:00: mouth [place] 00 daily. Medical Branch tamsulosin 2020-10 Yes [id number] .4mg Take 1 Univers 0.4 mg 24 2-14 capsule by ity of hr capsule 00:00: mouth [place] 00 daily. Medical Branch pantoprazol 2020-10 Yes [id number] 40mg Take 1 Univers e 40 mg EC 2-14 tablet by ity of tablet 00:00: mouth [place] 00 daily. Medical Branch tamsulosin 2020-10 Yes [id number] .4mg Take 1 Univers 0.4 mg 24 2-14 capsule by ity of hr capsule 00:00: mouth [place] 00 daily. Medical Branch pantoprazol 2020-10 Yes [id number] 40mg Take 1 Univers e 40 mg EC 2-14 tablet by ity of tablet 00:00: mouth [place] 00 daily. Medical Branch tamsulosin 2020-10 Yes [id number] .4mg Take 1 Univers 0.4 mg 24 2-14 capsule by ity of hr capsule 00:00: mouth [place] 00 daily. Medical Branch docusate 2020-10 Yes [id number] 100mg Take 1 U nivers 100 mg 2-13 capsule by ity of capsule 00:00: mouth 2 00 (two) Medical times Branch daily. celecoxib 2020-10 Yes [id number] 100mg Take 1 Univers 100 mg 2-13 capsule by ity of capsule 00:00: mouth 2 00 (two) Medical times Branch daily with meals. amoxicillin 2020-10 Yes [id number] 1{tbl} Take 1 Univers -clavulanat 2-13 tablet by ity of e 00:00: mouth 2 [place] (AUGMENTIN) 00 (two) Medical 875-125 mg times Branch per tablet daily. docusate 2020-10 Yes [id number] 100mg Take 1 U nivers 100 mg 2-13 capsule by ity of capsule 00:00: mouth 2 (two) Medical times Branch daily. celecoxib 2020-10 Yes [id number] 100mg Take 1 Univers 100 mg 2-13 capsule by ity of capsule 00:00: mouth 2 [place] (two) Medical times Branch daily with meals. amoxicillin 2020-10 Yes [id number] 1{tbl} Take 1 Univers -clavulanat 2-13 tablet by ity of e 00:00: mouth 2 [place] (AUGMENTIN) 00 (two) Medical 875-125 mg times Branch per tablet daily. docusate 2020-10 Yes [id number] 100mg Take 1 U nivers 100 mg 2-13 capsule by ity of capsule 00:00: mouth 2 00 (two) Medical times Branch daily. celecoxib 2020-10 Yes [id number] 100mg Take 1 Univers 100 mg 2-13 capsule by ity of capsule 00:00: mouth 2 [place] (two) Medical times Branch daily with meals. amoxicillin 2020-10 Yes [id number] 1{tbl} Take 1 Univers -clavulanat 2-13 tablet by ity of e 00:00: mouth 2 [place] (AUGMENTIN) 00 (two) Medical 875-125 mg times Branch per tablet daily. acetaminoph 2020-10- No [id number] 650mg Take 2 Univers en 325 mg 2-13 12-14 tablets by ity of tablet 00:00: 05:59 mouth [place] 00 :00 every 6 Medical (six) Branch hours as needed for Pain (scale 1-3). acetaminoph 2020-10- No [id number] 650mg Take 2 Univers en 325 mg 2-13 12-14 tablets by ity of tablet 00:00: 05:59 mouth [place] 00 :00 every 6 Medical (six) Branch hours as needed for Pain (scale 1-3). acetaminoph 2020-10- No [id number] 650mg Take 2 Univers en 325 mg 2-13 12-14 tablets by ity of tablet 00:00: 05:59 mouth [place] 00 :00 every 6 Medical (six) Branch hours as needed for Pain (scale 1-3). Vital Signs Vital Name Observation Time Observation Value Comments Source Systolic blood 2021-09-22 16:07:00 158 mm[Hg] [facility] Diastolic blood 2021-09-22 16:07:00 58 mm[Hg[facility] 2021-09-22 16:07:00 58 /min [facility] Body temperature 2021-09-22 16:06:00 35.78 Jody [facility] Respiratory rate 2021-09-22 16:06:00 22 /min [facility] Body height 2021-09-22 16:06:00 172.7 cm [facility] Body weight 2021-09-22 16:06:00 65.772 kg [facility] BMI 2021-09-22 16:06:00 22.05 kg/m2 [facility] Procedures Procedure Date / Time Performed Performing Clinician Sourc e EXTERNAL PROVIDER 2021-10-05 06:01:00 Doctor Unassigned, No [facility] RECORDS Name Medical Branch Encounters Start End Encounter Admission Attending Care Care Encounter Source Date/Time Date/Time Type Type Clinicians Facility Department ID 2022-03-02 Outpatient Adkins, STLMLC STLMLC [id number] Common 10:32:03 [facility] 2022-02-26 Outpatient Adkins, STLMLC STLMLC [id number] Common 10:47:03 [facility] 2022-04-20 2022-04-20 ambulatory STLMLC STLMLC [id number] Common 00:00:00 00:00:00 [facility] 2022-04-20 2022-04-20 ambulatory STLMLC STLMLC [id number] Common 00:00:00 00:00:00 [facility] 2022-04-15 2022-04-15 ambulatory STLMLC STLMLC [id number] Common 00:00:00 00:00:00 [facility] 2022-03-02 2022-03-02 ambulatory STLMLC STLMLC [id number] Common 00:00:00 00:00:00 [facility] 2021-10-05 2021-10-05 Orders Doctor [id number] Univers 00:00:00 00:00:00 Only Unassigned, RON [id number] ity of [place] [facility] [id number] Carlos as [phone] [facility] 009 Branch 2021-09-22 2021-09-22 Office Service/[place], Surgery C UNIVERS [id number] Univers 10:00:00 10:15:00 Visit Person, Farhad [employer] [id number] ity of [id number] [phone] [facility] 203 Branch 2021-09-04 2021-09-14 Inpatient U [facility] [id number] Univers 20:53:00 13:35:00 ROSIBEL mcdaniel of [facility] Results This patient has no known results.
[2022-06-28 21:08] LABS: Arterial Blood Carboxyhemoglob 1.3 % (0-1.5); Blood Gas Oxyhemoglobin 90.8 % (94-97); Blood O2 Saturation 93.1 % (92-98.5)
[2022-06-28 22:09] LABS: Absolute Lymphocytes (CBC) 2.4 K/uL (0.7-4.9); Hematocrit 41.6 % (39.6-49.0); Lymphocytes % 7.8 % (15.3-44.8); MCV 87.4 fL (80-100); MPV 11.1 fL (7.6-11.3); RBC Red Blood Cell Count 4.76 M/uL (4.33-5.43)
[2022-06-28 22:21] LABS: Albumin 3.4 g/dL (3.4-5.0); Bilirubin Total 0.6 mg/dL (0.2-1.0); Potassium 4.1 mmol/L (3.5-5.1); Protein, Total 6.8 g/dL (6.4-8.2); Troponin High Sensitivity 50.7 pg/mL (<58.9)
--- NOTE | 2022-06-28 22:22 | RAD REPORT ---
EXAM DESCRIPTION: RAD - Chest Single View - 06/28/2022 9:50 pm CLINICAL HISTORY: SOB, history of hypertension, history of diabetes COMPARISON: Portable December 2021 TECHNIQUE: AP portable chest image was obtained 06/28/2022 9:50 pm . FINDINGS: Approximately 4 centimeter rounded mass is suspicious for malignancy. Present medial right upper lung field suspicious for malignancy. Acute infiltrate is unlikely to give this presentation. 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 Heart and vasculature are normal. No measurab le pleural effusion and no pneumothorax. No acute bony abnormality seen. No acute aortic findings rose mary pected. IMPRESSION: Medial right upper lung field 4 cm mass suspicious for malignancy. Follow-up contrast CT chest recommended.
[2022-06-28] MEDS ORDERED: VANCOMYCIN 1 GM/VIAL ONE (22:49)
[2022-06-28] MEDS ORDERED: FUROSEMIDE 40 MG/4 ML VIAL ONE (22:50)
[2022-06-28] MEDS ORDERED: NA CHLORIDE 0.9% 100 ML ONE (22:50)
[2022-06-28] MEDS ORDERED: NA CHLORIDE 0.9% 250 ML ONE (22:50)
--- NOTE | 2022-06-28 23:09 | ER ---
Nurse's Notes Formerly [facility] Name: Gil Thao Age: 86 yrs Sex: Male : 1935 Arrival Date: 06/28/2022 Time: 20:44 Bed 3 Private MD: Diagnosis: Hypoglycemia, unspecified;Sepsis, unspecified organism;Acute respiratory failure with hypoxia;Fluid overload Presentation: 06/28 20:44 Chief complaint: Patient states: Toned out for AMS, EMS states pt BGL was 36 upon 3 arrival, states they administered 2 tubes of oral glucose and the the BGL was 56, after that they gave 25 G of D10, PTs BGL is 106 upon arrival. Coronavirus screen: Vaccine status: Patient reports receiving the 2nd dose of the covid vaccine. At this time, the client does not indicate any symptoms associated with coronavirus-19. Ebola Screen: No symptoms or risks identified at this time. Risk Assessment: Do you want to hurt yourself or someone else? Patient reports no desire to harm self or others. Onset of symptoms was June 28, 2022. 20:44 Method Of Arrival: EMS: [place] [id number] 20:44 Acuity: JONY 3 3 06/29 01:57 Initial Sepsis Screen: Does the patient meet any 2 criteria? RR > 20 per min. No. ll3 Patient's initial sepsis screen is negative. Does the patient have a suspected source of infection? No. Patient's initial sepsis screen is negative. Triage Assessment: 06/28 20:50 General: Appears in no apparent distress. Behavior is cooperative, drowsy. Pain: Denies ll3 pain. Neuro: Level of Consciousness is obeys commands, confused, lethargic, Oriented to person, place, time. Respiratory: Reports cough that is Respiratory effort is labored, Respiratory pattern is tachypnea Breath sounds with crackles bilaterally. Derm: Skin is clammy. Historical: - Allergies: 20:50 No Known Allergies; ll3 - PMHx: 20:50 CVA; Diabetes - IDDM; Hypertension; Myocardial infarction; seasonal allergies; ll3 - PSHx: 20:50 Cholecystectomy; ll3 - Immunization history:: Client reports receiving the 2nd dose of the Covid vaccine. - Social history:: Smoking status: Patient/guardian denies using tobacco. Screenin:02 Abuse screen: Denies threats or abuse. Denies injuries from another. Nutritional ll3 screening: No deficits noted. Tuberculosis screening: No symptoms or risk factors identified. 06/29 01:57 Fall Risk No fall in past 12 months (0 pts). No secondary diagnosis (0 pts). IV access ll3 (20 points). Ambulatory Aid- None/Bed Rest/Nurse Assist (0 pts). Gait- Weak (10 pts.). Mental Status- Oriented to own ability (0 pts). Total An Fall Scale indicates Low Risk Score (25-44 pts). Fall prevention measures have been instituted. Side Rails Up X 2 Placed close to Nursing Station Family Present and informed to notify staff if they need to leave bedside As available Patient and Family Educated on Fall Prevention Program and strategies. Assessment: 06/28 20:52 General: See triage assessment. ll3 22:23 Reassessment: No changes from previously documented assessment. Patient and/or family ll3 updated on plan of care and expected duration. Pain level reassessed. Patient denies pain at this time. 23:01 Reassessment: No changes from previously documented assessment. Patient and/or family ll3 updated on plan of care and expected duration. Pain level reassessed. Patient denies pain at this time. 06/29 00:25 Reassessment: ERP notified, medicated as ordered. GI: Reports nausea, vomiting. ll3 01:57 Reassessment: No changes from previously documented assessment. Patient and/or family ll3 updated on plan of care and expected duration. Pain level reassessed. 03:06 Reassessment: No changes from previously documented assessment. Patient and/or family ll3 updated on plan of care and expected duration. Pain level reassessed. States "I'm feeling a lot better already". 03:11 Reassessment: [phone] (SON). ll3 Vital Signs: 06/28 20:44 BP 144 / 68; Pulse 71; Resp 22; Temp 96.6(TE); Pulse Ox 83% on R/A; Weight 62.14 kg ll3 (R); Height 5 ft. 0 in. (152.40 cm) (R); Pain 0/10; 22:30 BP 142 / 65; Pulse 80; Resp 21; Pulse Ox 95% on 20 lpm NC; ll3 23:30 BP 116 / 53; Pulse 97; Resp 22; Pulse Ox 94% on 20 lpm NC; ll3 06/29 01:25 BP 151 / 94; Pulse 86; Resp 21; Pulse Ox 100% on 20 lpm NC; ll3 03:10 BP 97 / 54; Pulse 88; Resp 18; Pulse Ox 99% on 20 lpm NC; ll3 03:19 BP 99 / 69; Pulse 89; Resp 25; Pulse Ox 100% on 20 lpm NC; ll3 04:43 BP 107 / 48; Pulse 79; Resp 16; Pulse Ox 100% on 20 lpm NC; ll3 06/28 20:44 Body Mass Index 26.76 (62.14 kg, 152.40 cm) ll3 ED Course: 06/28 20:44 Patient arrived in ED. ll3 20:45 Laura Varela MD is Attending Physician. sd2 20:50 Triage completed. ll3 20:50 Arm band placed on Patient placed in an exam room, on a stretcher, on pulse oximetry. ll3 21:52 XRAY Chest (1 view) In Process Unspecified. EDMS 23:02 Patient has correct armband on for positive identification. Bed in low position. Call 3 light in reach. Side rails up X 1. 23:02 Maintain EMS IV. Dressing intact. Site clean \\T\\ dry. Gauge \\T\\ site: 20 LFA. ll 3 23:06 Maxx Mendoza RN is Primary Nurse. ll3 23:08 John Pace MD is Hospitalizing Provider. sd2 06/29 01:22 Missed attempt(s): 18 gauge in left upper arm. Bleeding controlled, band aid applied, bb catheter tip intact. 03:06 Foster cath inserted, using sterile technique, 16 Fr., by line fisher, balloon inflated, to ll3 gravity drainage, clamped. returned clear yellow urine. Patient tolerated well. 03:11 No provider procedures requiring assistance completed. ll3 Administered Medications: 06/28 23:00 Drug: Lasix (furosemide) 80 mg Route: IVP; Site: left forearm; 3 06/29 03:17 Follow up: Response: No adverse reaction 3 06/28 23:35 Drug: vancoMYCIN 15 mg/kg Route: IVPB; Site: left forearm; 3 06/29 03:17 Follow up: Response: No adverse reaction; IV Status: Completed infusion; IV Intake: ll3 250ml 00:21 Drug: Zofran (Ondansetron) 4 mg Route: IVP; Site: left forearm; jb4 03:17 Follow up: Response: No adverse reaction; Marked relief of symptoms ll3 02:10 Drug: Zosyn (piperacillin-tazobactam) 4.5 grams Route: IVPB; Infused Over: 60 mins; ll3 Site: left forearm; 03:17 Follow up: Response: No adverse reaction; IV Status: Completed infusion; IV Intake: ll3 100ml 03:16 Drug: NS 0.9% 500 ml Route: IV; Rate: bolus; Site: left forearm; ll3 04:01 Drug: NS 0.9% 250 ml Route: IV; Rate: bolus; Site: left forearm; ll3 04:17 Drug: NS 0.9% 250 ml Route: IV; Rate: bolus; Site: left forearm; ll3 Medication: 01:57 VIS not applicable for this client. ll3 Point of Care Testing: Blood Glucose: 06/28 21:27 Blood Glucose: 185 mg/dL; ll3 Ranges: Intake: 06/29 03:17 IV: 100ml; Total: 100ml. ll3 03:17 IV: 250ml; Total: 350ml. ll3 Outcome: 06/28 23:09 Decision to Hospitalize by Provider. sd2 06/29 05:27 Patient left the ED. ds4 Signatures: Dispatcher [employer] EDMS Corinne Rhodes RN RN bb Swanson, Donovan ds4 Cleveland Jimenez RN RN jb4 Maxx Mendoza RN RN ll3 Laura Varela MD MD sd2
--- NOTE | 2022-06-28 23:10 | EDPHYS ---
Physician Documentation [facility] Name: Gil Thao Age: 86 yrs Sex: Male : 1935 Arrival Date: 06/28/2022 Time: 20:44 Bed 3 Private MD: ED Physician Laura Varela HPI: 06/28 21:29 This 86 yrs old Male presents to ER via EMS with complaints of hypoglycemia. sd2 21:29 86-year-old male with a history of diabetes presents via EMS with chief complaint of sd2 hypoglycemia. Family reported he was becoming disoriented approximately 2 to 3 hours prior to arrival. Upon EMSs arrival, the patient's blood sugar was in the 30s. He was given 2 oral glucose with improvement to the 50s and then 25 g of D10 with improvement to 94. He was 106 upon arrival to the ER. They also noted patient was hypoxic and was placed on 12L NRB en route to the ER. Room air O2 saturation upon arrival is 83%. Pt placed on NC and then HFNC with improvement. Family arrived to bedside later and reports ongoing cough and that patient did not eat lunch today. Pt appears confused although he is oriented to person and place but cannot tell me his medical problems or what happened today.. Historical: - Allergies: 20:50 No Known Allergies; ll3 - PMHx: 20:50 CVA; Diabetes - IDDM; Hypertension; Myocardial infarction; seasonal allergies; ll3 - PSHx: 20:50 Cholecystectomy; ll3 - Immunization history:: Client reports receiving the 2nd dose of the Covid vaccine. - Social history:: Smoking status: Patient/guardian denies using tobacco. ROS: 21:29 Unable to obtain ROS due to altered mental status. sd2 Exam: 21:29 Constitutional: This is a well developed, well nourished patient who is awake, alert, sd2 and in no acute distress. Head/Face: Normocephalic, atraumatic. Eyes: EOMI, normal conjunctiva bilaterally Chest/axilla: Normal chest wall appearance and motion. Nontender with no deformity. Cardiovascular: Regular rate and rhythm with a normal S1 and S2. No gallops, murmurs, or rubs. 2+ distal pulses. Respiratory: Coarse breath sounds bilaterally with audible congestion. Subcostal retractions present with tachypnea. Abdomen/GI: Soft, non-tender, with normal bowel sounds. No guarding or rebound. No evidence of tenderness throughout. Skin: Warm, dry with normal turgor. Normal color with no rashes, no lesions, and no evidence of cellulitis. MS/ Extremity: Pulses equal, no cyanosis. Neurovascular intact. Full, normal range of motion. Ambulatory without difficulty. Psych: Awake, alert, with orientation to person and place. Behavior, mood, and affect are within normal limits. 21:29 ECG was reviewed by the Attending Physician. Sinus rhythm, occasional PVCs, rate 73, no sd2 STEMI criteria, TWIs in V4-V6 Vital Signs: 20:44 BP 144 / 68; Pulse 71; Resp 22; Temp 96.6(TE); Pulse Ox 83% on R/A; Weight 62.14 kg ll3 (R); Height 5 ft. 0 in. (152.40 cm) (R); Pain 0/10; 22:30 BP 142 / 65; Pulse 80; Resp 21; Pulse Ox 95% on 20 lpm NC; ll3 23:30 BP 116 / 53; Pulse 97; Resp 22; Pulse Ox 94% on 20 lpm NC; ll3 06/29 01:25 BP 151 / 94; Pulse 86; Resp 21; Pulse Ox 100% on 20 lpm NC; ll3 03:10 BP 97 / 54; Pulse 88; Resp 18; Pulse Ox 99% on 20 lpm NC; ll3 03:19 BP 99 / 69; Pulse 89; Resp 25; Pulse Ox 100% on 20 lpm NC; ll3 04:43 BP 107 / 48; Pulse 79; Resp 16; Pulse Ox 100% on 20 lpm NC; ll3 06/28 20:44 Body Mass Index 26.76 (62.14 kg, 152.40 cm) ll3 MDM: 06/28 20:47 Patient medically screened. sd2 21:29 Differential Diagnosis Differential diagnosis includes but is not limited to: ACS, sd2 DVT/PE, pneumothorax, dissection, musculoskeletal, anxiety, anemia, electrolyte abnormality, pneumonia, CHF, COPD among others. Data reviewed: vital signs, nurses notes, EMS record. 23:05 Data reviewed: lab test result(s), EKG, radiologic studies. Counseling: I had a sd2 detailed discussion with the patient and/or guardian regarding: the historical points, exam findings, and any diagnostic results supporting the discharge/admit diagnosis, lab results, radiology results, the need for further work-up and treatment in the hospital. ED course: labs and imaging reviewed. Significant leukocytosis present and possible infectious process vs mass on CXR. Concern for infectious process found at 2215 allowing the patient to meet sepsis criteria at this time. Broad spectrum abx given. Pt not given IVFs due to concern for fluid overload initially clinically and confirmed with significantly elevated BNP on labs. Lasix IV given. BP has remained stable. pt saturating well and mentation significantly improved on HFNC. Will admit for further management at this time. . 06/28 20:47 Order name: CBC with Diff; Complete Time: 00:56 06/28 20:47 Order name: CMP; Complete Time: 22:06/28 20:47 Order name: Troponin High Sensitivity; Complete Time: 22:06/28 20:47 Order name: BNP; Complete Time: 22:06/28 20:47 Order name: Procalcitonin; Complete Time: 22:54 06/28 20:47 Order name: ABG; Complete Time: 21:06/28 20:47 Order name: Lactate; Complete Time: 22:06/28 20:52 Order name: Glucose, Ancillary Testing; Complete Time: 21:26 EDMS 06/28 21:38 Order name: Glucose, Ancillary Testing; Complete Time: 21:51 MS 06/28 22:13 Order name: Manual Differential; Complete Time: 00:56 06/28 22:15 Order name: Blood Culture Adult (2) 06/28 23:11 Order name: Glucose, Ancillary Testing; Complete Time: 23:16 06/28 23:12 Order name: SARS-COV-2 RT PCR (Document "Date of Onset" if Symptomatic); Complete Time: wm 00:56 06/29 02:27 Order name: Glucose, Ancillary Testing; Complete Time: 02:27 EDMS 06/28 20:47 Order name: XRAY Chest (1 view); Complete Time: 22:26 06/28 20:47 Order name: BIPAP 06/29 00:55 Order name: Thorax W/ Con 06/29 02:58 Order name: Lactate Sepsis 2 HR Follow-up; Complete Time: 03:44 [facility] 06/29 03:36 Order name: CBC with Automated Diff; Complete Time: 03:44 [facility] 06/29 03:59 Order name: Hemoglobin A1c [facility] 06/29 04:03 Order name: Comprehensive Metabolic Panel [facility] 06/29 04:03 Order name: T4 Free [facility] 06/29 04:03 Order name: Thyroid Stimulating Hormone [facility] 06/28 20:47 Order name: EKG - Nurse/Tech; Complete Time: 21:24 sd2 06/28 20:47 Order name: Glucose Level; Complete Time: 20:56 sd2 06/28 22:15 Order name: Glucose Level; Complete Time: 23:01 sd2 Administered Medications: 23:00 Drug: Lasix (furosemide) 80 mg Route: IVP; Site: left forearm; 3 06/29 03:17 Follow up: Response: No adverse reaction [facility] 06/28 23:35 Drug: vancoMYCIN 15 mg/kg Route: IVPB; Site: left forearm; 3 06/29 03:17 Follow up: Response: No adverse reaction; IV Status: Completed infusion; IV Intake: ll3 250ml 00:21 Drug: Zofran (Ondansetron) 4 mg Route: IVP; Site: left forearm; jb4 03:17 Follow up: Response: No adverse reaction; Marked relief of symptoms 3 02:10 Drug: Zosyn (piperacillin-tazobactam) 4.5 grams Route: IVPB; Infused Over: 60 mins; ll3 Site: left forearm; 03:17 Follow up: Response: No adverse reaction; IV Status: Completed infusion; IV Intake: ll3 100ml 03:16 Drug: NS 0.9% 500 ml Route: IV; Rate: bolus; Site: left forearm; ll3 04:01 Drug: NS 0.9% 250 ml Route: IV; Rate: bolus; Site: left forearm; ll3 04:17 Drug: NS 0.9% 250 ml Route: IV; Rate: bolus; Site: left forearm; ll3 Point of Care Testing: Blood Glucose: 06/28 21:27 Blood Glucose: 185 mg/dL; ll3 Ranges: Critical Glucose Levels:Adult <50 mg/dl or >400 mg/dl <40 mg/dl or >180 mg/dl Disposition: 23:09 Chart complete. sd2 Disposition Summary: 06/28/22 23:09 Hospitalization Ordered Hospitalization Status: Inpatient Admission sd2 Provider: John Pace Location: Telemetry/MedSur (Inpatient) sd2 Condition: Stable sd2 Problem: new sd2 Symptoms: have improved sd2 Bed/Room Type: [facility] Room Assignment: 429(06/29/22 01:45) mw Diagnosis - Hypoglycemia, unspecified sd2 - Sepsis, unspecified organism sd2 - Acute respiratory failure with hypoxia sd2 - Fluid overload sd2 Forms: - Medication Reconciliation Form sd2 - SBAR form sd2 Signatures: Dispatcher [employer] EDMS Joyce Rowland RN RN mw Timothy Crisostomo, FLOOR SPACE ALLOCATOR-C FLOOR SPACE ALLOCATOR-Cla1 Cleveland Jimenez RN RN jb4 Maxx Mendoza RN RN ll3 Laura Varela MD MD sd2 Corrections: (The following items were deleted from the chart) 06/29 01:45 06/28 23:09 sd2 mw
[2022-06-28] MEDS ORDERED: PIPERACIL/TAZO 4.5 GM VIAL IV ONE (23:18)
[2022-06-28 23:24] LABS: Blood Morphology Comment NOTED (NOT SEEN); Platelet Estimate ADEQ; Polychromasia 2+
[2022-06-29] MEDS ORDERED: ONDANSETRON 4 MG/2 ML VIAL ONE (00:15)
--- NOTE | 2022-06-29 02:03 | P.HP ---
Certification for Inpatient Patient admitted to: Inpatient With expected LOS: >2 Midnights Patient will require the following post-hospital care: None Practitioner: I am a practitioner with admitting privileges, knowledge of patient current condition, hospital course, and medical plan of care. 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 He was given p.o. and IV glucose prior to arrival to the emergency department, upon arrival emergency department patient was hypoxic around 83% on room air although his mental status was improving. He does report that he has had about 1 month of cough with blood-tinged sputum. His labs in the emergency department were significant for elevated BNP, marked leukocytosis which she has a known history of, mild hyponatremia. He met criteria for sepsis given abnormal chest x-ray wi th possible mass versus infectious process, tachypnea, leukocytosis. He was treated with IV antibiotics vancomycin and Zosyn as well as a dose of IV Lasix. He is currently on high flow nasal cannula a CT scan of his chest with IV contrast has been ordered and is currently pending. We will admit for further evaluation and management of acute hypoxic respiratory failure, hypoglycemia. 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 -: Polycythemia vera -: Thrombocytopenia -: Cardiac stent -: Hernia repair Psychosocial/ Personal History: Patient is retired, lives at home with his - Family History Mother -: Diabetes Father -: Kidney disease - Social History Smoking Status: Former smoker Alcohol use: No CD- Drugs: No Caffeine use: Yes Place of Residence: Home Review of Systems 10-point ROS is otherwise unremarkable Respiratory: Cough, Shortness of Breath, Hemoptysis, SOB with Excertion Cardiovascular: Orthopnea Physical Examination - Physical Exam General: Alert, In no apparent distress, Oriented x3 HEENT: Atraumatic, PERRLA, Mucous membr. moist/pink, EOMI, Sclerae nonicteric Neck: Supple, 2+ carotid pulse no bruit, No LAD, Without JVD or thyroid abnormality Respiratory: Diminished, Crackles/rales Cardiovascular: No edema, Regular rate/rhythm, Normal S1 S2 Capillary refill: <2 Seconds Gastrointestinal: Normal bowel sounds, No tenderness Musculoskeletal: No tenderness Integumentary: No rashes Neurological: Normal speech, Normal strength at 5/5 x4 extr, Normal tone, Normal affect - Studies Laboratory Data (last 24 hrs) 06/28/22 21:49: Sodium 132 L, Potassium 4.1, BUN 20 H, Creatinine 1.13, Glucose 215 H, Total Bilirubin 0.6, AST 11 L, ALT 13, Alkaline Phosphatase 90 06/28/22 21:49: WBC 30.90 H*, Hgb 13.2 L, Hct 41.6, Plt Count 131 L Assessment and Plan - Plan Assessment: Severe sepsis secondary to community-acquired pneumonia Acute hypoxic respiratory failure secondary to above Diabetes mellitus type 2insulin-dependent with hypoglycemia Lobar pneumonia versus mass/neoplasm right upper lobe Urinary retention History of MDS/polycythemia vera History of CVA/CAD 1.7 x 1.7 cm low-density mass left adrenal glandincidental finding Plan: Severe sepsis secondary to community-acquired pneumonia: SIRS criteria present including leukocytosis, tachypnea and source of infection with bibasilar pneumonia as well as possible right upper lobar pneumonia versus neoplasm. Lactic acid 2.9 patient also requiring significant oxygen supplementation. Blood cultures were obtained in the emergency department repeat lactate level pending. Patient was treated with IV antibioticsvancomycin and Zosyn in the emergency department EKG with mildly prolonged QT we will continue with antibioticsZosyn. Incentive spirometry ordered, pulmonology consult in place. Acute hypoxic respiratory failure secondary to above: Continue as above, pulmonology consult in place, repeat ABG in the morning. Patient respiratory status seems improving. Diabetes mellitus type 2insulin-dependent with hypoglycemia: Patient takes Levemir 20 units in the morning, he reports that he took his insulin yesterday morning but did not eat. We will hold long-acting insulin as well as sliding scale until blood sugar is consistently greater than 200. ADA diet in place. Lobar pneumonia versus mass/neoplasm right upper lobe: Discussed with patient possibility of neoplasm versus infectious process, continue treatment for pneumonia, pulmonology consult in place. Appreciate further input. Urinary retention: PVR 900Foley catheter inserted in the emergency department History of MDS/polycythemia vera: Patient with elevated white blood cell count intermittently/chronically is followed by Dr. Siddiqui diagnosed with MDS as well as polycythemia vera and mild thrombocytopenia. Also possibly related given infectious process/sepsis. We will continue antibiotics, monitor CBC daily. History of CVA/CAD: Monitor on telemetry, continue home medications as appropriate. 1.7 x 1.7 cm low-density mass left adrenal glandincidental finding: Discussed with patient, recommendation from radiology is a 1 year follow-up adrenal washout CT, if stable greater than or equal to 1 year no further follow- up imaging is required. DVT PPX:Lovenox Code status:Full Discharge Plan: Home Plan to discharge in: Greater than 2 days - Advance Directives Does patient have a Living Will: Yes Does patient have a Durable POA for Healthcare: Yes - Code Status/Comfort Care Code Status Assessed: Yes (Full code) Critical Care: No Time Spent Managing Pts Care (In Minutes): 70
[2022-06-29] MEDS ORDERED: VANCOMYCIN 1 GM in NA CHLORIDE 0.9% 250 ML IVPB SCH (03:12)
[2022-06-29] MEDS ORDERED: NA CHLORIDE 0.9% 500 ML ONE ×2 (03:14→03:56)
[2022-06-29 03:33] LABS: Absolute Lymphocytes (CBC) 1.7 K/uL (0.7-4.9); Hematocrit 43.3 % (39.6-49.0); MCV 87.4 fL (80-100); MPV 11.3 fL (7.6-11.3); RBC Red Blood Cell Count 4.95 M/uL (4.33-5.43)
[2022-06-29 04:03] LABS: Albumin 3.3 g/dL (3.4-5.0); Bilirubin Total 0.7 mg/dL (0.2-1.0); Potassium 3.9 mmol/L (3.5-5.1); Protein, Total 6.4 g/dL (6.4-8.2); Thyroid Stimulating Hormone 9.96 uIU/mL (0.360-3.740)
[2022-06-29 05:55] LABS: Arterial Blood Carboxyhemoglob 1.1 % (0-1.5); Blood O2 Saturation 92.2 % (92-98.5)
[2022-06-29] MEDS ORDERED: ONDANSETRON 4 MG/2 ML VIAL IV PRN (06:00)
[2022-06-29 06:53] VITALS: BMI 20.8
[2022-06-29] MEDS ORDERED: POTASSIUM CL SA 10 MEQ TAB PO ONE ×2 (08:00→09:00)
--- NOTE | 2022-06-29 08:43 | CON ---
Date of Consultation: 06/29/2022 Reason For Consultation: Respiratory failure and hypoxia. History Of Present Illness: Mr. Thao is 86. I known him for many years. He has a history of CVA, diabetes, hypertension, coronary artery disease, and history of supraventricular tachycardia. He sti ll lives at home and actually takes care of his who has severe Alzheimer. He came in with an ep isode of hypoglycemia and he was found to have low oxygen saturation. Chest x-ray showed right upper lung mass 4 cm. There was a possible pneumonia. He has white count of 34,000. EKG showed old ante rior RI. The troponin was negative. Glucose was 192 after treatment. He is feeling better after ox ygenation, antibiotics, and Lasix. He is also on Lovenox. He denied chest pain. Denied any fever o r chills. He has had some cough and changes in mental status recently. Denied any palpitation. Den ied any syncope. Past Medical History: As stated above. Allergies: NONE. Review of Systems: Negative. Social History: Negative. Family History: Noncontributory. Medications: Include aspirin, glyburide with metformin combination, insulin, multivitamin, metoprolo l, and ferritin. Physical Examination: General: By the time I saw him, he was alert and oriented x3. Vital Signs: Stable. He was afebrile. HEENT: Negative. Neck: Supple with no bruit. Chest: Revealed some rales both bases. Some expiratory wheezing. Cardiac: Revealed a regular rhythm and rate without any gallops or rubs. He had aortic sclerosis mu rmur. Abdomen: Benign. Extremities: Revealed no edema. Skin: Dry and intact. Pulses were present bilaterally distally. Neurologic: He was nonfocal. Diagnostic Data: As stated earlier. Impression And Plan: Lung mass, elevated white count, positive pneumonia . Dr. Mehdi riggins as been consulted. He has hypoxia . Echocardiogram is pending. BNP is elevated. We may be dealing with congestive heart failure. We will continue Lasix for now. I will resume his home me dications. He has a history of cerebrovascular accident in the past. His diabetes is better control led now. His blood pressure is well controlled. He has had history of elevated BP in the past. He is on metoprolol for that. He also has a history of coronary artery disease that is stable. I think considering Mr. Thao's age and overall status, I will pursue lung mass workup, get an echocardiogra m. Continue Lasix, antibiotics, and Lovenox. Continue all his other medications. We will see what the echo shows and see what Dr. Harding says before making further decisions. He may eventually nee jose elias Cabezas if he needs to have anything surgically done. DORA/BOONE Voice ID: [id number] Report ID: [id number]
[2022-06-29] MEDS ORDERED: PIPER TAZO 3.375 GM in NA CHLORIDE 0.9% 100 ML IV SCH (09:00)
[2022-06-29] MEDS ORDERED: ENOXAPARIN 40 MG/0.4 ML SQ SCH (09:00)
[2022-06-29] MEDS ORDERED: FUROSEMIDE 20 MG/ 2ML VIAL IV SCH (09:00)
[2022-06-29] MEDS ORDERED: CEFEPIME 1 GM in NA CHLORIDE 0.9% 100 ML IV SCH (09:00)
--- NOTE | 2022-06-29 12:44 | P.CNS ---
Date of Consult: 06/29/22 Reason for Consult: RUL Lung mass Chief Complaint: Respiratory failure, hypoglycemia History of Present Illness: PT is 86 yrs of age metabolic synd AW to [facility] with hypoglcemia.HEmoptysis for 2 months. 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 -: Polycythemia vera -: Thrombocytopenia -: Cardiac stent -: Hernia repair Psychosocial/ Personal History: Patient is retired, lives at home with his - Family History Mother Medical History: Diabetes Father Medical History: Kidney disease - Social History Smoking Status: Former smoker Alcohol use: No CD- Drugs: No Caffeine use: Yes Place of Residence: Home Review of Systems General: Weakness, Unremarkable Respiratory: Cough, Shortness of Breath Physical Examination Temp Pulse Resp BP Pulse Ox 98.0 F 81 16 92/40 L 96 06/29/22 08:00 06/29/22 08:15 06/29/22 08:00 06/29/22 08:15 06/29/22 08:00 General: Alert, In no apparent distress, Oriented x3 Neck: Supple Respiratory: Expiratory wheezes Cardiovascular: No edema, Regular rate/rhythm, Normal S1 S2 Gastrointestinal: Normal bowel sounds, Soft and benign, Non-distended Laboratory Data (last 24 hrs) 06/28/22 21:49: Sodium 132 L, Potassium 4.1, BUN 20 H, Creatinine 1.13, Glucose 215 H, Total Bilirubin 0.6, AST 11 L, ALT 13, Alkaline Phosphatase 90 06/28/22 21:49: WBC 30.90 H*, Hgb 13.2 L, Hct 41.6, Plt Count 131 L - Problems (1) Lung cancer Current Visit: Yes Status: Acute Plan: pt is 86 yrs of age AW Hemoptysis, hypoglycemia and hemoptysis. RUL mass. Likely cancer. Remote Hx of smoking/ pt has MDS. Elevated WBC/ TX with pred and po Anitibiotics. poss bronchwhen stable. May be as outpatient. CT scan reviewed. Likely has endobronchial mass accessible by bronch./ DC Lasix.. CT scan rev Qualifiers: Laterality: right
--- NOTE | 2022-06-29 16:21 | RAD REPORT ---
EXAM DESCRIPTION: CT - Thorax W/ Con - 06/29/2022 2:10 am CLINICAL HISTORY: 86 years Male SOB TECHNIQUE: Axial CT imaging of the chest was performed following the administration of intraveno us contrast. Sagittal and coronal reconstructed images were then performed. The CT study is performed according to ALARA (as low as reasonably achievable) or ALARA/IMAGE GENTLY, with automatic adjustmen t of mA and/or kV according to patient size. Performed on: 06/29/2022 at 2:01 AM Comparison: Prior chest x-ray report from 06/28/2022 and 12/01/2021. The images were unavailable for pito woods. FINDINGS: CT CHEST: Lungs: The lungs are hyperinflated. There are diffuse centrilobular emphysematous changes. There is f ocal airspace consolidation in the posterior right upper lobe measuring approximately 7.7 x 6.8 cm in cross-sectional diameter by approximately 6.7 cm in craniocaudal dimension. There is pleural-parench ymal stranding radiating from the periphery of this mass. This may represents lobar pneumonia. A neop lastic process is not entirely excluded. There is also patchy airspace consolidation in the dependent lower lobes concerning for bibasilar pneumonia. There are additional scattered patchy areas of paren chymal opacification throughout the right middle lobe. There is no evidence of a pneumothorax. There is a trace right pleural effusion. Heart: The heart is normal in size. There is no pericardial effusion. There are ubsm-ta-ropjobac coronary artery calcifications. Mediastinum: The mediastinum is unremarkable. The mediastinal vessels are normal in caliber and con tour. There are atherosclerotic calcifications along the thoracic aorta and proximal great vessels. Bones: No acute osseous abnormalities are identified. Soft tissues: No focal soft tissue abnormalities are identified. Lymphadenopathy: No pathologic hilar, mediastinal or axillary lymphadenopathy is identified. There are calcified mediastinal lymph nodes consistent with prior granulomatous disease. Upper abdomen: The gallbladder is surgically absent. There are splenic and hepatic granulomas. The sp gregorio appears to be enlarged but is incompletely visualized. There is an approximately 1.7 x 1.7 cm lo w density mass arising from the apex of the left adrenal gland measuring approximately 25 Hounsfield units. There is a very small sliding-type hiatal hernia. There are atherosclerotic calcifications sarika ng the visualized portions of the abdominal aorta and proximal major branch vessels. IMPRESSION: 1. Focal airspace consolidation in the posterior right upper lobe measuring approximat rhett 7.7 x 6.8 x 6.7 cm with pleural-parenchymal stranding radiating from the periphery of this mass. This may represents lobar pneumonia. A neoplastic process is not entirely excluded. 2. Patchy airspace consolidation in the dependent lower lobes concerning for bibasilar pneumonia. T here are additional scattered patchy areas of parenchymal opacification throughout the right middle l obe likely reflecting multifocal pneumonia. 3. Trace right pleural effusion. 4. Diffuse centrilobular emphysematous changes. 5. Evidence of prior granulomatous disease. 6. Suspect splenomegaly. 7. Approximately 1.7 x 1.7 cm low density mass arising from the apex of the left adrenal gland xavier uring approximately 25 Hounsfield units. This likely represents an adrenal adenoma. A one-year follow -up adrenal washout CT is recommended. If stable greater than or equal to 1 year, no further follow-u p imaging is recommended. 8. Very small sliding-type hiatal hernia. Electronically signed by: Gianna Vance DO 06/29/2022 2:50 AM CDT Due to temporary technical issues with the PACS/Fluency reporting system, reports are being signed by the in house radiologists without review as a courtesy to insure prompt reporting. The interpreting radiologist is fully responsible for the content of the report.
[2022-06-29] MEDS ORDERED: GLUCAGON 1 MG/VIAL IM PRN (16:56)
[2022-06-29] MEDS ORDERED: D10W 250 ML BAG IV PRN (17:04)
[2022-06-29] MEDS: INSULIN -REGULAR HUMAN 50 UNIT/0.5 ML ML SQ SCH ×2 (17:32→21:00)
[2022-06-29] MEDS: predniSONE 20 MG TAB PO SCH (21:28)
[2022-06-30] MEDS: METOPROLOL TAR 50 MG TAB PO SCH ×3 (00:22→20:25)
[2022-06-30 03:45] LABS: Absolute Lymphocytes (CBC) 1.9 K/uL (0.7-4.9); Hematocrit 35.3 % (39.6-49.0); Lymphocytes % 6.1 % (15.3-44.8); MCV 86.5 fL (80-100); MPV 11.5 fL (7.6-11.3); RBC Red Blood Cell Count 4.08 M/uL (4.33-5.43)
[2022-06-30 04:08] LABS: Albumin 2.9 g/dL (3.4-5.0); Bilirubin Total 0.7 mg/dL (0.2-1.0); Potassium 4.9 mmol/L (3.5-5.1)
[2022-06-30] MEDS: INSULIN -REGULAR HUMAN 50 UNIT/0.5 ML ML SQ SCH ×5 (07:30→23:41)
[2022-06-30] MEDS: levoFLOXacin 750 MG TAB PO SCH (08:42)
[2022-06-30] MEDS: predniSONE 20 MG TAB PO SCH ×2 (08:46→20:24)
[2022-06-30] MEDS: ENOXAPARIN 60 MG/0.6 ML SQ SCH ×2 (08:46→20:24)
--- NOTE | 2022-06-30 08:51 | RAD REPORT ---
EXAM DESCRIPTION: RAD - Chest Single View - 06/30/2022 8:43 am CLINICAL HISTORY: hypoxia, f/u opacity Chest pain. COMPARISON: Chest Single View dated 06/28/2022; Chest Single View dated 12/01/2021; Chest Single View d ated 12/10/2020; Chest Single View dated 12/02/2020hest Single View dated 06/28/2022; Chest Single View dated 12/01/2021; Chest Single View dated 12/10/2020; Chest Single View dated 12/02/2020; Thorax W/ Con da lola 06/29/2022 FINDINGS: Portable technique limits examination quality. 3-4 cm right peritracheal stripe soft tissue mass is present likely neoplastic. Emphysema is noted wi th bibasilar lung opacities also present suggesting infiltrate/ infection. The heart is upper limit n ormal in size. IMPRESSION: Large right peritracheal rounded mass lesion most compatible with neoplasia. Bronchoscop y would be recommended for tissue diagnosis. Bibasilar lung opacities suggests infection/pneumonia superimposed on COPD.
--- NOTE | 2022-06-30 12:29 | P.PN ---
Subjective Date of Service: 06/30/22 Chief Complaint: Respiratory failure Patient is subjectively feeling better is still on high concentrations of high flow oxygen Review of Systems General: Weakness Respiratory: Shortness of Breath Physical Examination - Vital Signs Temperature: 98.2 F Blood Pressure: 112/55 Pulse: 86 Respirations: 16 Pulse Ox (%): 97 - Physical Exam General: Alert, Oriented x3, Mild distress Respiratory: Clear to auscultation bilaterally Cardiovascular: No edema, Regular rate/rhythm - Studies Microbiology Data (last 24 hrs): 06/28/22 22:35 Blood - Blood Anaerobic Blood Culture - Final Assessment And Plan - Current Problems (Diagnosis) (1) Lung cancer Current Visit: Yes Status: Acute Plan: Patient is still requiring considerable amount of oxygen he is high risk for bronchoscopy will have to wait until he stabilizes on 2 to 4 L of nasal cannula oxygen to be performed safely Qualifiers: Laterality: right (2) Respiratory failure Current Visit: Yes Status: Acute Plan: Patient is very hypoxic he is anticoagulated with Lovenox have ordered lower extremity Dopplers. For CT pulmonary angiogram he is high risk for thromboembolism 2D echocardiogram is still pending vital signs are stable Qualifiers: Chronicity: unspecified
--- NOTE | 2022-06-30 13:05 | EKG ---
Test Date: 2022-06-29 Test Time: 23:42:35 Information Technology Teacher: RT-O MEASUREMENT RESULTS: Intervals: Rate: 122 [place]: QRSD: 102 QT: 368 QTc: 524 [place]: P: [place]: QRS: 82 T: 250 INTERPRETIVE STATEMENTS: Atrial fibrillation with rapid ventricular response Inferior infarct, age undetermined ST & T wave abnormality, consider lateral ischemia or digitalis effect Abnormal ECG Compared to ECG 06/28/2022 21:17:44 Myocardial infarct finding now present Sinus rhythm no longer present Ventricular premature complex(es) no longer present Intraventricular conduction delay no longer present Prolonged QT interval no longer present ST (T wave) deviation still present Possible ischemia still present Electronically Signed On 06-30-22 13:04:18 CDT by Shawn Johnson
--- NOTE | 2022-06-30 13:10 | EKG ---
Test Date: 2022-06-28 Test Time: 21:17:44 Legal Word Processor: LL MEASUREMENT RESULTS: Intervals: Rate: 73 [place]: 152 QRSD: 118 QT: 424 QTc: 467 [place]: P: 70 [place]: 152 QRS: 82 T: -87 INTERPRETIVE STATEMENTS: Sinus rhythm with occasional premature ventricular complexes Possible Left atrial enlargement Nonspecific intraventricular conduction delay ST & T wave abnormality, consider inferolateral ischemia Prolonged QT Abnormal ECG Compared to ECG 12/01/2021 17:07:50 Ventricular premature complex(es) now present Intraventricular conduction delay now present ST (T wave) deviation now present Possible ischemia now present Prolonged QT interval now present Myocardial infarct finding no longer present Electronically Signed On 06-30-22 13:06:14 CDT by Shawn Johnson
--- NOTE | 2022-06-30 14:30 | ECHO ---
HEIGHT: 5 ft 8 in WEIGHT: 137 lb 0 oz DATE OF STUDY: 06/30/[address]: Timothy Crisostomo NP 2-DIMENSIONAL: YES M.MODE: YES DOPPLER: YES COLOR FLOW: YES TDS: NO PORTABLE: YES DEFINITY: NO BUBBLE STUDY: NO DIAGNOSIS: RESPIRATORY FAILURE CARDIAC HISTORY: CATHERIZATION: YES SURGERY: NO PROSTHETIC VALVE: NO PACEMAKER: NO MEASUREMENTS (cm) DIASTOLIC (NORMALS) SYSTOLIC (NORMALS) IVSd 1.2 (0.6-1.2) LA Diam 2.1 (1.9-4.0) LVEF % LVIDd 4.2 (3.5-5.7) LVIDs 3.3 (2.0-3.5) %FS % LVPWd 1.3 (0.6-1.2) Ao Diam 3.1 (2.0-3.7) 2 DIMENSIONAL ASSESSMENT: RIGHT ATRIUM: LEFT ATRIUM: RIGHT VENTRICLE: LEFT VENTRICLE: TRICUSPID VALVE: MITRAL VALVE: PULMONIC VALVE: AORTIC VALVE: PERICARDIAL EFFUSION: AORTIC ROOT: LEFT VENTRICULAR WALL MOTION: DOPPLER/COLOR FLOW: COMMENTS: VERY POOR STUDY. LEFT VENTRICULAR EJECTION FRACTION APPEARS DEPRESSED, UNABLE TO FURTHER EVALUATE DUE TO LIMITED WINDOWS. TECHNOLOGIST: AVINASH HARDEN
--- NOTE | 2022-06-30 15:12 | RAD REPORT ---
EXAM DESCRIPTION: USExtrem Venous W Compress Bil06/30/2022 3:04 pm CLINICAL HISTORY: Leg pain COMPARISON: none FINDINGS: Echogenic material is present within distal right superficial femoral vein within the nathan phery. This has the appearance of chronic thrombus. The common femoral, popliteal and posterior tibial veins bilaterally as well as the left superficial femoral vein are compressible and demonstrate augmentation. Doppler demonstrates good flow. Grayscale, color and spectral analysis performed on all vessels IMPRESSION: No evidence of acute deep venous thrombosis involving either lower extremity.
--- NOTE | 2022-06-30 15:28 | P.CNS ---
Date of Consult: 06/30/22 Reason for Consult: CARMEN Requesting Physician: Timothy Crisostomo Chief Complaint: Respiratory failure History of Present Illness: 86-year-old male with history of unspecified CVA in the past, CAD, chronic hypertension, Type II DM, chronic leukocytosis/MDS presented to the emergency department yesterday for hypoglycemia. EMS was called by family for altered mental status, upon arrival patient was noted to be hypoglycemic with a blood sugar of 36. During w/u in the ER he was found to be hypoxic and further w/u revealed abnormal labs, elevated BNP, Rt pulm consolidation. He shares he has been having thick sputum with blood streaks for several weeks or longer. He had a chest CT performed. He has been placed on Abx. He denies current dyspnea or pleurisy or wheezing. 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 -: Polycythemia vera -: Thrombocytopenia -: Cardiac stent -: Hernia repair Psychosocial/ Personal History: Patient is retired, lives at home with his - Family History Mother Medical History: Diabetes Father Medical History: Kidney disease - Social History Smoking Status: Former smoker Alcohol use: No CD- Drugs: No Caffeine use: Yes Place of Residence: Home Review of Systems General: Weakness Eyes: Unremarkable ENT: Unremarkable Respiratory: Cough, Hemoptysis Cardiovascular: Unremarkable Gastrointestinal: Unremarkable Genitourinary: Unremarkable Musculoskeletal: Unremarkable Integumentary: Unremarkable Neurological: Unremarkable Lymphatics: Unremarkable Physical Examination Temp Pulse Resp BP Pulse Ox 98.2 F 86 16 112/55 L 97 06/30/22 12:06/30/22 12:29 06/30/22 12:29 06/30/22 12:06/30/22 12:29 General: Alert, Oriented x3, Other (Thin, elderly) HEENT: Atraumatic, Normocephalic Neck: Supple Respiratory: Diminished, Crackles/rales Cardiovascular: No edema, Normal pulses, Regular rate/rhythm, Normal S1 S2 Gastrointestinal: Soft and benign, Non-distended Musculoskeletal: No swelling, No contractures Integumentary: No rashes Neurological: Normal speech, Normal tone, Normal affect Conclusions/Impression: 1. Abnormal results of kidney function studies 2. Stage 1 CARMEN 3. Contrast induced nephropathy/RASHARD 4. PNA unspecified organism 5. 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 Leukocytosis 7. Abnormality of albumin -Pt's Cr level has bumped up post contrast admin with the CT scan done yesterday, will cont to trend levels and see if it peaks early on indicating self limited injury. Monitor UOP. -F/u Cardiology reccs regarding elevated BNP, echo and assessment of CHF. No scheduled diuretics ordered at this time. -F/u Pulm reccs regarding abnormal lung imaging and concern for possible lung neoplasm. Infectious w/u and treatment per primary team -Will check UA with microscopy. Will assess for proteinuria. -Avoid NSAIDs. -Foster placed in the ER, pt reports some possible recent trouble emptying his bladder, will assess bladder function on voiding trial later this week
[2022-06-30 17:33] LABS: Urine Bacteria <20 /HPF (<20); Urine Granular Casts >20 /LPF (None Seen); Urine Mucus Slight /HPF (None Seen); Urine WBC Clump Occasional /HPF (None Seen)
--- NOTE | 2022-06-30 20:44 | P.PN ---
Date of Service: 06/30/22 Subjective: improving each day feels breathing more comfortably down to regular nasal cannula today continues with slight blood tinged sputum olmedo remains in place afib overnight ROS: 10 point ROS as noted above, otherwise negative Physical Exam: Gen: NAD, AOx3 HEENT: normal conjunctiva, sclera anicteric CV: tachycardia, no edema Pulm: mild labored respirations on 4L NC Abd: soft, non-tender, non-distended Neuro: normal speech, normal affect, moves all extremities vitals reviewed Problem List Severe sepsis secondary to community-acquired pneumonia Lobar pneumonia versus mass/ suspected neoplasm right upper lobe Acute hypoxic respiratory failure secondary to above Diabetes mellitus type 2insulin-dependent with hypoglycemia CARMEN Urinary retention History of MDS/polycythemia vera History of CVA/CAD 1.7 x 1.7 cm low-density mass left adrenal glandincidental finding afib, new Severe sepsis secondary to community-acquired pneumonia Lobar pneumonia versus mass/ suspected neoplasm right upper lobe Acute hypoxic respiratory failure secondary to above bibasilar pneumonia blood cultures negative continue antibiotics IS ordered pulm consulted new finding of mass -suspected neoplasm patient would need bronch for further eval, need to wean O2, pulm following O2 is improving DM2 worsened with steroid use titrate insulin as needed for better control CARMEN Urinary retention: PVR 900Foley catheter inserted in the emergency department renal function trending up, likely secondary to contrast exposure nephrology consulted History of MDS/polycythemia vera: h/o leukocytosis, chronically followed by Dr. Siddiqui continue to monitor History of CVA/CAD continue home medications as appropriate. 1.7 x 1.7 cm low-density mass left adrenal glandincidental finding: Discussed with patient, recommendation from radiology is a 1 year follow-up adrenal washout CT, if stable greater than or equal to 1 year no further follow- up imaging is required. Afib, new h/o supraventricular tachycardia, on metoprolol at home restarted at partial dose while confirming what patient truly takes Cardiology consulted echo ordered lovenox increased to therapeutic dosing VTE: lovenox 1mg/kg BID Code: full Dispo: home, ~2-3 days Time Spent Managing Pts Care (In Minutes): 35
[2022-06-30 21:50] LABS: Magnesium 1.7 mg/dL (1.8-2.4); Potassium 4.9 mmol/L (3.5-5.1)
[2022-07-01 03:50] LABS: Absolute Lymphocytes (CBC) 1.7 K/uL (0.7-4.9); Hematocrit 36.7 % (39.6-49.0); Lymphocytes % 3.7 % (15.3-44.8); MCV 85.7 fL (80-100); MPV 10.6 fL (7.6-11.3); RBC Red Blood Cell Count 4.28 M/uL (4.33-5.43)
[2022-07-01 04:16] LABS: Albumin 3.1 g/dL (3.4-5.0); Bilirubin Total 0.6 mg/dL (0.2-1.0); Potassium 4.7 mmol/L (3.5-5.1); Protein, Total 6.4 g/dL (6.4-8.2)
[2022-07-01] MEDS ORDERED: MAGNESIUM SULFATE 1 gm IVPB 1 GM/100 ML BAG IV ONE (04:35)
[2022-07-01 04:57] LABS: Blood Morphology Comment NOT SEEN (NOT SEEN); Platelet Estimate ADEQ
--- NOTE | 2022-07-01 06:44 | P.PN ---
Date of Service: 07/01/22 Subjective: feels slight improvement didn't sleep the last few nights, tired ROS: 10 point ROS as noted above, otherwise negative Physical Exam: Gen: NAD, AOx3 HEENT: normal conjunctiva, sclera anicteric CV: tachycardia, no edema Pulm: mild labored respirations on 4L NC Abd: soft, non-tender, non-distended Neuro: normal speech, normal affect, moves all extremities vitals reviewed Problem List Severe sepsis secondary to community-acquired pneumonia Lobar pneumonia versus mass/ suspected neoplasm right upper lobe Acute hypoxic respiratory failure secondary to above Diabetes mellitus type 2insulin-dependent with hypoglycemia CARMEN Urinary retention History of MDS/polycythemia vera History of CVA/CAD 1.7 x 1.7 cm low-density mass left adrenal glandincidental finding afib, new Severe sepsis secondary to community-acquired pneumonia Lobar pneumonia versus mass/ suspected neoplasm right upper lobe Acute hypoxic respiratory failure secondary to above bibasilar pneumonia blood cultures negative continue antibiotics empirically, change levaquin to cefepime, avoid QT prolonging agents IS ordered pulm consulted new finding of mass -suspected neoplasm patient would need bronch for further eval, need to wean O2, pulm following; possibly earliest Tuesday vs outpatient O2 is improving DM2 worsened with steroid use titrate insulin as needed for better control CARMEN Urinary retention: PVR 900Foley catheter inserted in the emergency department renal function trending up, likely secondary to contrast exposure nephrology consulted continue olmedo catheter, may need to f/u with urology vs void trial in a few days History of MDS/polycythemia vera: h/o leukocytosis, chronically followed by Dr. Siddiqui; chronci leukocytosis; blood smear ordered continue to monitor History of CVA/CAD continue home medications as appropriate. 1.7 x 1.7 cm low-density mass left adrenal glandincidental finding: Discussed with patient, recommendation from radiology is a 1 year follow-up adrenal washout CT, if stable greater than or equal to 1 year no further follow- up imaging is required. Afib, new h/o supraventricular tachycardia, on metoprolol at home restarted at partial dose while confirming what patient truly takes Cardiology consulted echo ordered lovenox increased to therapeutic dosing VTE: lovenox 1mg/kg BID Code: full Dispo: home, ~2-3 days Time Spent Managing Pts Care (In Minutes): 35
--- NOTE | 2022-07-01 07:33 | RAD REPORT ---
EXAM DESCRIPTION: RAD - Chest Single View - 07/01/2022 6:58 am CLINICAL HISTORY: f/u opacities COMPARISON: Chest Single View dated 06/30/2022; Chest Single View dated 06/28/2022; Chest Single View dated 12/01/2021; Chest Single View dated 12/10/2020; Thorax W/ Con dated 06/29/2022 FINDINGS: Lines: None. Lungs: Right upper lobe masslike process is unchanged. Bilateral ill-defined airspace disease with mi ld worsening compared with 06/22/2022. Emphysema. Pleural: No significant pleural effusions or pneumothorax. Cardiac: The heart size is within normal limits. Mediastinum: Within normal limits. Bones: No acute fractures. Other: None IMPRESSION: Ill-defined bilateral airspace opacities with slight increase compared with 06/30/2022. Suspected right upper lobe lung mass is unchanged.
--- NOTE | 2022-07-01 08:28 | EKG ---
Test Date: 2022-06-30 Test Time: 21:56:14 Cytologist: RT MEASUREMENT RESULTS: Intervals: Rate: 96 MD: 146 QRSD: 122 QT: 382 QTc: 482 Warren: P: 67 MD: 146 QRS: 78 T: 253 INTERPRETIVE STATEMENTS: Normal sinus rhythm Possible Inferior infarct, age undetermined Marked ST abnormality, possible anterolateral subendocardial injury Abnormal ECG Compared to ECG 06/29/2022 23:42:35 Atrial fibrillation no longer present Possible ischemia no longer present Myocardial infarct finding still present ST (T wave) deviation still present Electronically Signed On 07-01-22 08:26:33 CDT by Curtis Heath
[2022-07-01] MEDS: levoFLOXacin 750 MG TAB PO SCH (09:38)
[2022-07-01] MEDS: METOPROLOL TAR 50 MG TAB PO SCH ×2 (09:39→21:07)
[2022-07-01] MEDS: predniSONE 20 MG TAB PO SCH ×2 (09:39→21:08)
[2022-07-01] MEDS: ENOXAPARIN 60 MG/0.6 ML SQ SCH (09:39)
--- NOTE | 2022-07-01 12:30 | P.PN ---
Nephrology note (S) Pt remains on O2, O2 sats on the monitor ~ 89%, pt denies any acute dyspnea at rest, still with sputum production. Pt's sons at bedside and they report he has been weaker over the past few weeks. General: Alert, Oriented x3, Other (Thin, elderly) HEENT: Atraumatic, Normocephalic Neck: Supple Respiratory: Diminished, coarse on the Rt side > Lt Cardiovascular: No edema, Normal pulses, Regular rate/rhythm, Normal S1 S2 Gastrointestinal: Soft and benign, Non-distended Musculoskeletal: No swelling, No contractures Integumentary: No rashes Foster present Neurological: Awake. Alert. Normal speech, Normal tone, Normal affect Labs reviewed in the EMR Conclusions/Impression: 1. Abnormal results of kidney function studies 2. Stage II CARMEN with rise > 0.5 mg/dl 3. Contrast induced nephropathy/RASHARD 4. PNA unspecified organism 5. 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 Leukocytosis 7. Abnormality of albumin 8. Abnormal findings in urine -Pt's Cr level has bumped up post contrast admin with the CT scan done on admission. Automated UA reveals granular casts so it appears he did develop some ATN. Will cont to trend levels and see if it peaks early on indicating self limited injury. UOP has been acceptable, non oliguric. -F/u Cardiology reccs regarding elevated BNP, echo and assessment of CHF. No scheduled diuretics ordered at this time. -F/u Pulm reccs regarding abnormal lung imaging and concern for possible lung neoplasm. Infectious w/u and treatment per primary team. Avoid any further IV iodine contrast imaging at this time. -UA with pyuria, other -will f/u on UCx. -Foster placed in the ER, pt reports some possible recent trouble emptying his bladder, will assess bladder function on voiding trial once more ambulatory -If CrCl continues to decline, adjust meds, especially antibiotics, accordingly. Lorenzo Tavares MD, TYESHA
--- NOTE | 2022-07-01 12:32 | P.PN ---
Subjective Date of Service: 07/01/22 Chief Complaint: Lung cancer 81 Patient is improving oxygen requirements declining to have bronchoscopy done Review of Systems General: Weakness Respiratory: Shortness of Breath Physical Examination - Vital Signs Temperature: 98.0 F Blood Pressure: 101/54 Pulse: 71 Respirations: 18 Pulse Ox (%): 89 - Physical Exam General: Alert, In no apparent distress, Oriented x3 Respiratory: Clear to auscultation bilaterally, Diminished Cardiovascular: No edema, Regular rate/rhythm Assessment And Plan - Current Problems (Diagnosis) (1) Lung cancer Current Visit: Yes Status: Acute Plan: Patient is improving his oxygen requirements are declining we will proceed with bronchoscopy hopefully on Tuesday. Patient's white count is very elevated I suspect it may be from the steroids doubt sepsis. Echocardiogram is of poor quality. Renal function is worsened trial of IV fluids Qualifiers: Laterality: right
[2022-07-01] MEDS: NACHLORIDE 0.45% 1,000 ML IV SCH (12:59)
[2022-07-01] MEDS: CEFEPIME 1 GM in NA CHLORIDE 0.9% 100 ML IV SCH ×2 (12:59→21:08)
[2022-07-01] MEDS: INSULIN -REGULAR HUMAN 50 UNIT/0.5 ML ML SQ SCH ×3 (13:00→21:08)
--- NOTE | 2022-07-01 15:46 | PN ---
Date of Progress Note: 06/30/2022 Subjective: Mr. Thao this morning is feeling better. He is breathing better. Has no specific comp laint. However, he is in atrial fibrillation today, which is a new rhythm for him. He denied any PN D, orthopnea, and does not feel his palpitation. Denied any chest pain. Denied any nausea or vomiti ng. Objective: Vital Signs: He was in atrial fibrillation, rapid ventricular response, normal blood pre ssure. HEENT: Negative. Neck: Supple with no bruit. Chest: Revealed some rales both bases. Cardiac: Revealed atrial fibrillation. Impression And Plan: Atrial fibrillation, paroxysmal. He cannot be anticoagulated because he needs to workup for his lung mass. We need to avoid amiodarone because of his lung issues. He needs to be rate controlled with metoprolol. Echocardiogram is pending. This will help us rule out congestive heart failure, rule out left atrial thrombus. Continue present regimen, rate controlled. We will co delmis to follow. DORA/BOONE Voice ID: [id number] Report ID: [id number]
[2022-07-01] MEDS ORDERED: MELATONIN 5 MG TABLET PO PRN (19:50)
[2022-07-02] MEDS: NACHLORIDE 0.45% 1,000 ML IV SCH (02:18)
[2022-07-02 06:24] LABS: Absolute Lymphocytes (CBC) 1.8 K/uL (0.7-4.9); Hematocrit 33.3 % (39.6-49.0); Lymphocytes % 4.7 % (15.3-44.8); MCV 85.4 fL (80-100)
[2022-07-02 06:45] LABS: Albumin 2.7 g/dL (3.4-5.0); Bilirubin Total 0.7 mg/dL (0.2-1.0); Magnesium 2.1 mg/dL (1.8-2.4); Phosphorus 3.4 mg/dL (2.5-4.9); Potassium 4.6 mmol/L (3.5-5.1); Protein, Total 5.6 g/dL (6.4-8.2)
[2022-07-02] MEDS ORDERED: ENOXAPARIN 60 MG/0.6 ML SQ SCH (09:00)
--- NOTE | 2022-07-02 09:05 | P.PN ---
Subjective Date of Service: 07/02/22 Chief Complaint: Lung cancer Patient is doing better feeling very weak wants to go home shortness of breath is improved requiring oxygen Review of Systems General: Weakness Respiratory: Shortness of Breath Physical Examination - Vital Signs Temperature: 97.7 F Blood Pressure: 122/58 Pulse: 68 Respirations: 18 Pulse Ox (%): 92 - Physical Exam General: Alert, Oriented x3 Respiratory: Clear to auscultation bilaterally, Diminished, Friction rub Cardiovascular: Regular rate/rhythm Assessment And Plan - Current Problems (Diagnosis) (1) Lung cancer Current Visit: Yes Status: Acute Plan: Patient has advanced stage lung cancer is currently weak plan to discharge home will follow up as an outpatient and schedule outpatient bronchoscopy he feels physical condition has improved. Renal function has improved with IV fluids plan for discharge on low-dose steroids 10 mg twice a day antibiotics really not needed in and and inhaled bronchodilator for now Qualifiers: Laterality: right
[2022-07-02] MEDS: CEFEPIME 1 GM in NA CHLORIDE 0.9% 100 ML IV SCH (09:24)
[2022-07-02] MEDS: INSULIN -REGULAR HUMAN 50 UNIT/0.5 ML ML SQ SCH ×3 (09:25→17:56)
[2022-07-02] MEDS: predniSONE 20 MG TAB PO SCH (09:25)
[2022-07-02] MEDS: METOPROLOL TAR 50 MG TAB PO SCH (09:25)
[2022-07-02 09:43] VITALS: O2SAT 96
--- NOTE | 2022-07-02 13:34 | PN ---
Date of Progress Note: 07/02/2022 Subjective: Mr. Thao is 86. He has no specific complaints today except for some mild shortness of breath. He denied PND, orthopnea, pedal edema, palpitation, fever, chills, cough, or chest pain. Objective: Vital Signs: Stable today. He is in sinus rhythm with a heart rate of 98. He had been in atrial fibrillation, but then converted on metoprolol. He is getting Lovenox. No anticoagulation long-term. Chest: Reveals some rales at the bases. Cardiac: Revealed a regular rhythm and rate. No murmurs, gallops, or rubs. Diagnostic Data: 91% nasal cannula. Creatinine 1.65. White count of 45,000. Echocardiogram was ve ry technically difficult, but he has a normal ejection fraction. He is presently on Lovenox, insulin , antibiotics, metoprolol 50 b.i.d. Again, we will continue rate controlled with metoprolol. No ant icoagulation concerned. Dr. Martinez is following. I will sign off his case for now. DORA/BOONE Voice ID: [id number] Report ID: [id number]
--- NOTE | 2022-07-02 13:34 | P.PN ---
Nephrology note (S) Pt remains on O2, no acute dyspnea reported, olmedo removed, has been able to void on his own but pt/family reports that he voids smaller amounts. No dysuria reported. Labs and plan of care discussed, family at bedside, all qu answered. (O) vitals reviewed in the EMR General: Alert, Oriented x3, Other (Thin, elderly) HEENT: Atraumatic, Normocephalic Neck: Supple Respiratory: Diminished, coarse on the Rt side > Lt Cardiovascular: No edema, Normal pulses, Regular rate/rhythm, Normal S1 S2 Gastrointestinal: Soft and benign, Non-distended Musculoskeletal: No swelling, No contractures Integumentary: No rashes Olmedo present Neurological: Awake. Alert. Normal speech, Normal tone, Normal affect Labs reviewed in the EMR Conclusions/Impression: 1. Abnormal results of kidney function studies 2. Stage II CARMEN with rise > 0.5 mg/dl 3. Contrast induced nephropathy/RASHARD 4. PNA unspecified organism 5. 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 Leukocytosis 7. Abnormality of albumin 8. Abnormal findings in urine -Pt's Cr level has bumped up post contrast admin with the CT scan done on admission. Automated UA reveals granular casts so it appears he did develop some ATN. Levels have peaked early on and lower today indicating self limited injury. UOP has been acceptable, non oliguric. -F/u Cardiology reccs regarding elevated BNP, echo and assessment of CHF. No scheduled diuretics ordered at this time, IVF was ordered yesterday but will go ahead and d/c and encourage pt to maintain PO intake, apparently he does not drink much water -BP range acceptable. -Na corrected for glucose closer to 135, monitor. -F/u Pulm reccs regarding abnormal lung imaging and concern for possible lung neoplasm. Infectious w/u and treatment per primary team. Avoid any further IV iodine contrast imaging at this time. -UA with pyuria, other -will f/u on UCx. -Olmedo removed, check PVR, if notable, will place on alpha anais. Lorenzo Tavares MD, TYESHA
--- NOTE | 2022-07-02 17:02 | P.DS ---
Admission Date: 06/29/22 Discharge Date: 07/02/22 Disposition: DC HOME/HOME HEALTH CARE Discharge Condition: GOOD Reason for Admission: Lung cancer Consultations: Pulmonology -Dr. Harding Nephrology -Dr. Tavares Cardiology- Dr. 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 He was given p.o. and IV glucose prior to arrival to the emergency department, upon arrival emergency department patient was hypoxic around 83% on room air although his mental status was improving. He does report that he has had about 1 month of cough with blood-tinged sputum. His labs in the emergency department were significant for elevated BNP, marked leukocytosis which she has a known history of, mild hyponatremia. He met criteria for sepsis given abnormal chest x-ray with possible mass versus infectious process, tachypnea, leukocytosis. He was treated with IV antibiotics vancomycin and Zosyn as well as a dose of IV Lasix. He is currently on high flow nasal cannula a CT scan of his chest with IV contrast has been ordered and is currently pending. We will admit for further evaluation and management of acute hypoxic respiratory failure, hypoglycemia. Hospital Course: Patient presented shortness of breath and weakness. CT chest revealed findings concerning for right lung neoplasm and pneumonia. Pulmonology was consulted. He had gradual improvement with steroids and IV antibiotics. Patient was deemed stable for discharge home with home oxygen, 5 more days of prednisone and 5 more days of antibiotics. Patient is to follow-up with pulmonology office in the next 1 week, to further discuss scheduling of an outpatient bronchoscopy. Presentation to the emergency department, patient was noted to have some urinary retention, Foster catheter was placed, was subsequently removed 07/01. Patient was able to void without issue, with acceptable postvoid residuals. Did develop a mild CARMEN. Nephrology was consulted. Suspected secondary to NSAID usage at home in addition to IV contrast. Creatinine plateaued at 1.4-1.5. Follow-up with nephrology next few weeks. Recommend repeat BMP in 1 week Patient presented with a leukocytosis in the 20ks. peaked up to 40k. Due to his MDS and steroid usage. Briefly reviewed with his Heme/Onc physician, Dr. Siddiqui. Recommended to follow-up with Dr. Siddiqui in 3 to 4 weeks Incidental finding of a 1.7 x 1.7 cm low-density mass in the left adrenal gland. Recommended to have a repeat CT with adrenal washout in 1 year for follow-up. Patient was noted to have brief atrial fibrillation, he has a history of tach arrhythmia on metoprolol. He had improvement with reinitiation of his metoprolol. He is to resume his home metoprolol regimen as previously prescribed. Cardiology was consulted, recommend no anticoagulation at this time while patient is having further evaluation of this lung mass. An echocardiogram was obtained, however no significant information was able to be reviewed due to poor windows/difficult study. Patient to follow-up in the office for outpatient echocardiogram. New medications Cefpodoxime for 5 days Prednisone for 5 days Vital Signs/Physical Exam: Temp Pulse Resp BP Pulse Ox 97.2 F 70 20 109/53 L 98 07/02/22 12:00 07/02/22 12:00 07/02/22 12:00 07/02/22 12:00 07/02/22 12:00 Physical Exam: Gen: NAD, AOx3 HEENT: normal conjunctiva, sclera anicteric CV: tachycardia, no edema Pulm: non labored respirations on 2L NC Abd: soft, non-tender, non-distended Neuro: normal speech, normal affect, moves all extremities Laboratory Data at Discharge: WBC 39.40 K/uL (4.3-10.9) H* 07/02/22 06:00 Hgb 11.0 g/dL (13.6-17.9) L 07/02/22 06:00 Hct 33.3 % (39.6-49.0) L 07/02/22 06:00 Plt Count 116 K/uL (152-406) L 07/02/22 06:00 Sodium 132 mmol/L (136-145) L 07/02/22 06:00 Potassium 4.6 mmol/L (3.5-5.1) 07/02/22 06:00 BUN 50 mg/dL (7-18) H 07/02/22 06:00 Creatinine 1.42 mg/dL (0.55-1.3) H 07/02/22 06:00 Glucose 224 mg/dL (74-106) H 07/02/22 06:00 Phosphorus 3.4 mg/dL (2.5-4.9) 07/02/22 06:00 Magnesium 2.1 mg/dL (1.8-2.4) 07/02/22 06:00 Total Bilirubin 0.7 mg/dL (0.2-1.0) 07/02/22 06:00 AST 37 U/L (15-37) 07/02/22 06:00 ALT 23 U/L (12-78) 07/02/22 06:00 Alkaline Phosphatase 88 U/L (45-117) 07/02/22 06:00 Home Medications: Aspirin 325 mg PO DAILY 05/17/16 Glyburide/Metformin HCl [Glucovance 5-500 mg Tablet] 4 each PO BID 05/17/16 Insulin Detemir [Levemir] 20 units SQ DAILY 05/17/16 Loratadine [Claritin*] 10 mg PO DAILY 05/17/16 Multivitamin with Iron [Multivitamins with Iron] 10 mg PO DAILY 11/11/19 Metoprolol Succinate [Toprol Xl] 1 tab PO BID 03/26/22 Cefpodoxime Proxetil [Vantin] 200 mg PO BID 5 Days #10 tab 07/02/22 predniSONE [Prednisone*] 20 mg PO DAILY 5 Days #5 tab 07/02/22 New Medications: predniSONE [Prednisone*] 20 mg PO DAILY 5 Days #5 tab Cefpodoxime Proxetil [Vantin] 200 mg PO BID 5 Days #10 tab Physician Discharge Instructions: Patient presented shortness of breath and weakness. CT chest revealed findings concerning for right lung neoplasm and pneumonia. Pulmonology was consulted. He had gradual improvement with steroids and IV antibiotics. Patient was deemed stable for discharge home with home oxygen, 5 more days of prednisone and 5 more days of antibiotics. Patient is to follow-up with pulmonology office in the next 1 week, to further discuss scheduling of an outpatient bronchoscopy. Presentation to the emergency department, patient was noted to have some urinary retention, Foster catheter was placed, was subsequently removed 07/01. Patient was able to void without issue, with acceptable postvoid residuals. Did develop a mild CARMEN. Nephrology was consulted. Suspected secondary to NSAID usage at home in addition to IV contrast. Creatinine plateaued at 1.4-1.5. Follow-up with nephrology next few weeks. Recommend repeat BMP in 1 week Patient presented with a leukocytosis in the 20ks. peaked up to 40k. Due to his MDS and steroid usage. Briefly reviewed with his Heme/Onc physician, Dr. Siddiqui. Recommended to follow-up with Dr. Siddiqui in 3 to 4 weeks Incidental finding of a 1.7 x 1.7 cm low-density mass in the left adrenal gland. Recommended to have a repeat CT with adrenal washout in 1 year for follow-up. Patient was noted to have brief atrial fibrillation, he has a history of tach arrhythmia on metoprolol. He had improvement with reinitiation of his metoprolol. He is to resume his home metoprolol regimen as previously prescribed. Cardiology was consulted, recommend no anticoagulation at this time while patient is having further evaluation of this lung mass. An echocardiogram was obtained, however no significant information was able to be reviewed due to poor windows/difficult study. Patient to follow-up in the office for outpatient echocardiogram. New medications Cefpodoxime for 5 days Prednisone for 5 days Followup: William Adkins DO [Primary Care Provider] - Time spent managing pt's care (in minutes): 45
[2022-07-02 17:16] VITALS: BP 101/46; TEMP 97.4
[2022-07-03] MEDS ORDERED: predniSONE 20 MG TAB PO SCH (09:00)
== END 2022-07-02 18:36 | disposition home health service (06) | DRG 871 ==
LOC: ER 20:28 → ERHOLD 06-29 01:41 → 4TH 06-29 03:01
PROVIDERS: ADMIT Hospitalist; ATTEND Hospitalist
PROC: 5A09457 Assistance with Respiratory Ventilation, 24-96 Consecutive Hours, Continuous Positive Airway Pressure (ICD-10-PCS; principal; 2022-06-29)
DX: A41.9 Sepsis, unspecified organism (principal); J18.9 Pneumonia, unspecified organism; J96.01 Acute respiratory failure with hypoxia; N17.0 Acute kidney failure with tubular necrosis; C34.11 Malignant neoplasm of upper lobe, right bronchus or lung; I69.354 Hemiplegia and hemiparesis following cerebral infarction affecting left non-dominant side; R65.20 Severe sepsis without septic shock; E11.649 Type 2 diabetes mellitus with hypoglycemia without coma; I10 Essential (primary) hypertension; I48.0 Paroxysmal atrial fibrillation; D46.9 Myelodysplastic syndrome, unspecified; I25.10 Atherosclerotic heart disease of native coronary artery without angina pectoris; D69.6 Thrombocytopenia, unspecified; D75.1 Secondary polycythemia; E87.70 Fluid overload, unspecified; I25.2 Old myocardial infarction; R33.9 Retention of urine, unspecified; R82.90 Unspecified abnormal findings in urine; R77.0 Abnormality of albumin; T50.8X5A Adverse effect of diagnostic agents, initial encounter; T39.395A Adverse effect of other nonsteroidal anti-inflammatory drugs [NSAID], initial encounter; Z95.5 Presence of coronary angioplasty implant and graft; Z79.4 Long term (current) use of insulin; Z90.49 Acquired absence of other specified parts of digestive tract; Z79.82 Long term (current) use of aspirin; Z79.899 Other long term (current) drug therapy; Z87.891 Personal history of nicotine dependence; Z20.822 Contact with and (suspected) exposure to COVID-19
CPT/HCPCS: 36415; 51702; 71045; 71260; 80053; 81015; 82805; 82947; 83036; 83605; 83735; 83880; 84100; 84132; 84145; 84439; 84443; 84484; 85025; 87040; 87086; 87088; 93005; 93306; 93970; 94002; 94003; 94010; 94760; 96365; 96366; 96375; 97161; 97530; 99284; J0692; J1650; J1815; J1940; J2405; J2543; J3370; J3475; J7040; J7050; J7512; Q9967; U0003